=== PATIENT | male | born 1970 | race African-American/Black ===

== ENCOUNTER 2020-07-25 15:36 | Inpatient (IN) | payer OTHER ==
--- OUTSIDE RECORDS SUMMARY | 2020-07-25 15:39 | XMS REPORT | Continuity of Care Document ---
:1970 Author Organization [employer] Care Team Providers Name Role Phone [facility] intersp[employer]Submit Information [employer] Unavailable Un available Problems Problem Status Onset Classification Date Comments Sourc e Date Reported PANCREATITIS, Active [facility] RENAL 0 [place] INSUFFICENCY Acute 10/20/2019 [facility] [place] pancreatitis with infected necrosis, unspecified ACUTE Active [facility] PANCREATITIS [place] WITH INFECTED NECROSI Medications Medication Details Route Status Patient Ordering Order Source Instructions Provider Date NIFEdipine 60 60 mg = 1 Active mg oral tablet, tab, PO, 020 [place] extended BID, # 60 release tab, 0 Refill(s), Pharmacy: [facility] #[id number] apixaban 5 MG See Active Oral Tablet Instructions 020 [place] [Eliquis] , Start at 10 mg (2 tabs) q12h x 4 days then decrease to 5 mg PO q12h, # 76 tab, 0 Refill(s), Pharmacy: [facility] #[id number] NIFEdipine 30 30 mg, Inactive mg oral tablet, Route: PO, 020 [place] and extended Drug form: release ERTAB, BID, Dosing Weight 120.625, kg, Start date: 10/18/19 9:00:00 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, Duration: 30 day, Stop date: 11/16/19 17:00:00 CDT Lactated 1,000 mL, No Longer Ringers IV Rate: 150 Active 020 [place] 1,000 mL ml/hr, Infuse over: 6.7 hr, Route: IV, Dosing Weight 120.625 kg, Total Volume: 1,000, Start date: 10/17/19 14:52:00 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, Duration: 30 day, Stop date: 11/16/19 14:51:00 CDT, 2.47, m2, 0 heparin Notes: Inactive porcine 020 [place] heparin Lactated 1,000 mL, No Longer Ringers IV Rate: 250 Active 020 [place] 1,000 mL ml/hr, Infuse over: 4 hr, Route: IV, Dosing Weight 120.455 kg, Total Volume: 1,000, Start date: 10/16/19 15:30:00 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, Duration: 30 day, Stop date: 11/15/19 15:29:00 CDT, 2.47, m2, 0 msg to RN msg to RN, Inactive pls update Forrest Merino pt info in [employer]hoc, Drug form: MISC, Route: MISC, ONCE, 10/16/19 12:50:00 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, Stop date: 10/16/19 12:50:00 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, 0 Heparin - one 7,400 unit, Inactive time bolus for 7.4 mL, 020 Angelique DVT/PE Route: IVP, Drug form: INJ, ONCE, Dosing Weight 120.455, kg, Priority: STAT, Start date: 10/16/19 12:45:00 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, Stop date: 10/16/19 12:45:00 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, 0 Heparin 80 Route: IVP, No Longer MH unit/kg Bolus PRN, 7,400 Active 020 [place] (Heparin Dosing unit, 7.4 Weight) mL, Drug form: INJ, PRN, Heparin Protocol, Start date: 10/16/19 12:45:00 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 Stop date: 11/15/19 13:44:00 CDT, 30 day, 0 Heparin 40 Route: IVP, No Longer MH unit/kg Bolus PRN, 3,700 Active 020 [place] (Heparin Dosing unit, 3.7 Weight) mL, Drug form: INJ, PRN, Heparin Protocol, Start date: 10/16/19 12:45:00 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 Stop date: 11/15/19 13:44:00 CDT, 30 day, 0 heparin 500 mL, No Longer MH additive 25,000 Rate: 33.11 Active 020 [place] unit [18 ml/hr, unit/kg/hr] + Infuse over: Premix Diluent 15.1 hr, Dextrose 5% 500 Route: IV, mL Dosing Weight 91.98 kg, Total Volume: 500 mL, Start date: 10/16/19 12:45:00 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, Duration: 30 day, Stop date: 11/15/19 12:44:00 CDT, 2.15, m2, 0 normal saline 1,000 mL, Inactive 0.9% IV 1,000 Rate: 200 020 [place] mL ml/hr, Infuse over: 5 hr, Route: IV, Total Volume: 1,000, Start date: 10/16/19 10:30:00 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, Duration: 30 day, Stop date: 11/15/19 10:29:00 CDT, 0 Amlodipine Notes: (Same No Longer as: Norvasc) Active 020 [place] metoprolol Notes: (Same No Longer tartrate as: Active 020 [place] Lopressor) Ondansetron Notes: (Same No Longer as: Zofran) Active 020 [place] MEDICATION WASTE Product Size: 4 mg Product Wasted: ___ mg Hydromorphone Notes: Same No Longer as: Dilaudid Active 020 [place] metoprolol 100 mg = 1 Active tartrate 100 mg tab, PO, 020 [place] oral tablet BID, # 60 tab, 0 Refill(s) candesartan 32 32 mg = 1 No Longer mg oral tablet tab, PO, Active 020 [place] Daily, # 30 tab, 0 Refill(s) febuxostat 40 40 mg = 1 Active mg oral tablet tab, PO, 020 [place] Daily, # 30 tab, 0 Refill(s) Amlodipine 10 mg, PO, No Longer Daily, 0 Active 020 [place] Refill(s) Dextrose 50% 12.5 gm, 25 No Longer Syringe (D50W) mL, Route: Active 020 [place] IVP, Drug Form: INJ, kg, PRN, PRN Blood Glucose Results, Start date: 10/16/19 9:42:00 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, Duration: 30 day, Stop date: 11/15/19 10:41:00 CDT, 0 Glucagon 1 mg, Route: No Longer IM, Drug Active 020 [place] form: PDR/INJ, PRN, kg, PRN Blood Glucose Results, Start date: 10/16/19 9:42:00 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, Duration: 30 day, Stop date: 11/15/19 10:41:00 CDT, 0 Allergies, Adverse Reactions, Alerts No Known Medication Allergies Immunizations No Data Provided for This Section Results Order Name Results Value Reference Date Interpretation Comments Siri rce Range URINE CHEM Ur Protein 167.3 <=11.8 10/19 MH mg/dL [facility] URINE CHEM TV Protein 3200 800 - 1800 10/19 MH (ml) [facility] URINE CHEM U Prot 24Hrs 24 10/19 MH Col (10/18/19 6:05 PM) [facility] nd URINE CHEM U24 Protein 5354 <=148 10/19 MH mg/24hrs /2019 [place] HEMATOLOGY PTT 88.8 22.9 - 02 MH 35.8 [facility] CHEM PANEL Amylase Lvl 96 25 - 115 10/18 [facility] CHEM PANEL Glucose Lvl 138 70 - 99 10/18 MH [place] CHEM PANEL BUN 22 7 - 22 10/18 [facility] CHEM PANEL Creatinine 2.18 0.50 - 02/ MH Lvl 1.40 [facility] CHEM PANEL Sodium Lvl 140 135 - 145 10/18 MH [place] CHEM PANEL Potassium 3.5 3.5 - 5.1 10/18 MH Lvl /2019 [place] CHEM PANEL Chloride Lvl 107 95 - 109 10/18 [place] CHEM PANEL CO2 25 24 - 32 10/18 MH [place] CHEM PANEL Calcium Lvl 8.6 8.5 - 10.5 10/18 [facility] CHEM PANEL AGAP 11.5 10.0 - 02/ MH 20.0 [facility] CHEM PANEL eGFR 39 10/18 Result Comment: The [facility] eGFR is calculated using the CKD-EPI formula. In most young, healthy individuals the eGFR will be >90 mL/min/1.73m2 . The eGFR declines with age. An eGFR of 60-89 may be normal in some populations, particularly the elderly, for whom the CKD-EPI formula has not been extensively validated. Use of the eGFR is not recommended in the following populations:< br/>
Radha viduals with unstable creatinine concentration s, including patients and those with serious co-morbid conditions.<b r/>
Patie nts with extremes in muscle mass or diet.

The data above are obtained from the National Kidney Disease Education Program (NKDEP) which additionally recommends that when the eGFR is used in patients with extremes of body mass index for purposes of drug dosing, the eGFR should be multiplied by the estimated BMI. HEMATOLOGY WBC 7.9 3.7 - 10.4 02/12 MH /2020 [place] HEMATOLOGY RBC 5.10 4.70 - 02/12 MH 6.10 /2020 [facility] HEMATOLOGY Hgb 11.9 14.0 - 02/12 MH 18.0 /2020 [facility] HEMATOLOGY Hct 36.9 42.0 - 02/ MH 54.0 /2019 [facility] HEMATOLOGY MCV 72.4 80.0 - 02/ MH 94.0 /2019 [facility] HEMATOLOGY MCH 23.3 27.0 - 02/ MH 31.0 /2019 [facility] HEMATOLOGY MCHC 32.1 32.0 - 02/ MH 36.0 /2019 [facility] HEMATOLOGY RDW 15.7 11.5 - 02/ MH 14.5 /2020 [facility] HEMATOLOGY Platelet 205 133 - 450 02/12 MH /2019 [facility] HEMATOLOGY MPV 7.3 7.4 - 10.4 /12 MH /2019 [facility] HEMATOLOGY PTT 109.0 22.9 - 02 Result MH 35.8 /2020 Comment: [facility] Critical Result(s) called to Samantha at 10/18/2019 05:45 by CH. Read back OK. HEMATOLOGY Segs 62.7 45.0 - 02/ MH 75.0 /2019 [place] HEMATOLOGY Lymphocytes 24.6 20.0 - 02/12 MH 40.0 /2020 [facility] HEMATOLOGY Monocytes 11.0 2.0 - 12.0 02/12 MH /2019 [place] HEMATOLOGY Eosinophils 1.0 0.0 - 4.0 02/12 MH /2020 [place] HEMATOLOGY Basophils 0.7 0.0 - 1.0 02/12 MH /2020 [place] HEMATOLOGY Neutrophils 4.9 1.5 - 8.1 02/12 MH # /2020 [facility] HEMATOLOGY Lymphocytes 1.9 1.0 - 5.5 02/12 MH # /2020 [facility] HEMATOLOGY Monocytes # 0.9 0.0 - 0.8 02/12 MH /2019 [place] HEMATOLOGY Eosinophils 0.1 0.0 - 0.5 02/12 MH # /2019 [place] HEMATOLOGY Basophils # 0.1 0.0 - 0.2 10/18 MH /2019 [place] HEMATOLOGY Microcyte 2+ None Seen 10/18 MH *ABN* /2019 [facility] (10/18/19 5:17 AM) HEMATOLOGY PT 14.6 12.0 - 02 MH 14.7 /2019 [facility] HEMATOLOGY INR 1.13 0.85 - 02 MH 1.17 /2019 [facility] HEMATOLOGY PTT 62.9 22.9 - 02 MH 35.8 /2019 [facility] IMMUNOLOGY C-ANCA Negative Negative 10/17 MH (10/17/19 3:33 PM) /2019 [facility] IMMUNOLOGY P-ANCA Negative Negative 10/17 MH (10/17/19 3:33 PM) /2019 [facility] nd IMMUNOLOGY OMAIRA Negative 5 Negative 10/17 Result MH (10/17/19 3:33 PM) /2019 Comment: Zulema and Because the OMAIRA was Negative, the Reflex assays for Anti-dsDNA, SM/BILINGUAL COUN[employer] SALES RETAIL, and Ro/La (SSA/SSB) were not performed. IMMUNOLOGY C3 152 88 - 201 10/17 MH Complement /2019 [facility] IMMUNOLOGY C4 42 16 - 47 10/17 MH Complement /2019 [facility] IMMUNOLOGY DNA Ab (DS) Negative Negative 10/17 (10/17/19 3:33 PM) /2019 [facility] nd IMMUNOLOGY Hep Bs Ag Negative Negative 10/17 MH *NA* /2019 [place] (10/17/19 3:33 PM) IMMUNOLOGY Hep C Ab Negative Negative 10/17 MH *NA* /2019 [place] (10/17/19 3:33 PM) IMMUNOLOGY Albumin % 44.2 55.8 - 10/17 MH 66.1 [facility] IMMUNOLOGY Alpha 1 % 6.6 2.8 - 4.9 10/17 /2019 [facility] IMMUNOLOGY Alpha 2 % 14.7 7.0 - 11.9 10/17 MH /2019 [place] IMMUNOLOGY Beta % 16.2 7.8 - 13.7 10/17 /2019 [facility] IMMUNOLOGY Gamma % 18.3 11.1 - 02 MH 18.7 [facility] IMMUNOLOGY Albumin 3.27 3.57 - 02 MH (SPE) 5.55 /2019 [facility] IMMUNOLOGY Alpha 1 Glob 0.49 0.18 - 02 MH 0.41 [facility] IMMUNOLOGY Alpha 2 Glob 1.09 0.45 - 10/17 MH 1.00 [facility] IMMUNOLOGY Beta Glob 1.20 0.50 - 10/17 MH 1.15 [facility] IMMUNOLOGY Gamma Glob 1.35 0.71 - 10/17 MH 1.57 [facility] IMMUNOLOGY Tot Prot 7.4 6.4 - 8.4 10/17 MH (SPE) /2019 [facility] IMMUNOLOGY SPE Interp Total 10/17 MH protein [facility] normal with a decrease in serum albumin. Serum capillary protein electropho resis shows elevated alpha and beta globulin fractions. The electropho retic pattern is consistent with the acute phase of an inflammato ry process. Clinical correlatio n is required. No definite monoclonal proteins are identified . However, an area of asymmetry is noted within the polyclonal gamma fraction and, therefore, an underlying monoclonal protein cannot be excluded. Clinical correlatio n is recommende d with immunofixa tion electropho resis of serum and urine if clinically indicated. Interpret ation performed at [facility]. IMMUNOLOGY LIANNE Ser Diffusely 10/17 MH Pattern immunoreac /2019 [place] tive bands are noted in the IgG, IgA, IgM, kappa and lambda lanes. No monoclonal bands are identified . Interpreta tion performed at [facility]. IMMUNOLOGY LIANNE Ser Serum 10/17 Interp immunofixa /2019 [place] tion electropho resis reveals a polyclonal pattern of immunoglob ulins. No monoclonal proteins are identified . Interpreta tion performed at [facility]. IMMUNOLOGY [place] Free 49.35 3.30 - 10/17 Light Chains 19.40 [facility] IMMUNOLOGY Lambda Free 32.21 5.70 - 10/17 Light Chains 26.30 [facility] IMMUNOLOGY [place]/Lambda 1.53 0.26 - 10/17 MH Free Light 1.65 [facility] Chains Ratio IMMUNOLOGY RF Qnt <10 0 - 20 10/17 [facility] URINE AND UA Turbidity Clear Clear 10/17 STOOL (10/17/19 11:49 AM) [place]ma and URINE AND UA Spec Grav 1.006 <=1.030 10/17 STOOL /2019 [facility] URINE AND UA pH 8.0 5.0 - 8.0 10/17 STOOL /2019 [facility] URINE AND UA Protein 100 mg/dL Negative 10/17 STOOL mg/dL [facility] URINE AND UA Glucose Negative Negative 10/17 STOOL mg/dL mg/dL [facility] URINE AND UA Ketones Negative Negative 10/17 STOOL mg/dL mg/dL [facility] URINE AND UA Bili Negative Negative 10/17 STOOL *NA* /2019 [place] (10/17/19 11:49 AM) URINE AND UA Blood Small Negative 10/17 STOOL *ABN* [facility] (10/17/19 11:49 AM) URINE AND UA Nitrite Negative Negative 10/17 STOOL (10/17/19 11:49 AM) [place] and URINE AND UA Leuk Est Negative Negative 10/17 STOOL (10/17/19 11:49 AM) [place] and URINE AND UA RBC 7 0 - 2 10/17 STOOL [place] URINE AND UA Sq Epi None Seen 10/17 STOOL [place] URINE AND UA Color STRAW 10/17 STOOL [place] URINE AND UA <=1.0 0.1 - 1.0 10/17 STOOL Urobilinogen mg/dL [facility] URINE CHEM U Creatinine <13.00 10/17 [facility] URINE CHEM U Protein 124.6 10/17 [facility] URINE CHEM U Prot/Creat See Note 1 10/17 Result (10/17/19 11:49 AM) Comment: [place] Unable to calculate due to U Creatinine being <13.00. URINE CHEM U Osmolality 366 300 - 800 10/17 [facility] URINE CHEM U Eos None Seen None Seen 10/17 (10/17/19 11:49 AM) [place] and URINE CHEM U Sodium 94 10/17 [facility] URINE CHEM U Potassium 6.3 10/17 [facility] URINE CHEM U Chloride 82 10/17 [facility] CARDIAC Total CK 159 12 - 191 10/17 ENZYMES [facility] CHEM PANEL Magnesium 2.2 1.8 - 2.4 10/17 Lvl [facility] CHEM PANEL Phosphorus 2.8 2.5 - 4.5 10/17 [facility] IMMUNOLOGY C-REACTIVE 126.0 <=2.9 mg/L 10/17 PROTEIN [facility] CHEM PANEL Amylase Lvl 267 25 - 115 10/17 [facility] CHEM PANEL Glucose Lvl 129 70 - 99 10/17 [facility] CHEM PANEL BUN 23 7 - 22 10/17 [facility] CHEM PANEL Creatinine 2.27 0.50 - 10/17 MH Lvl 1.40 [place] CHEM PANEL Sodium Lvl 141 135 - 145 10/17 [place] CHEM PANEL Potassium 3.5 3.5 - 5.1 10/17 MH Lvl /2019 [place] CHEM PANEL Chloride Lvl 108 95 - 109 10/17 [place] CHEM PANEL CO2 28 24 - 32 10/17 [facility] CHEM PANEL Calcium Lvl 8.9 8.5 - 10.5 10/17 [facility] CHEM PANEL AGAP 8.5 10.0 - 02 MH 20.0 [facility] CHEM PANEL eGFR 37 10/17 Result Comment: The [facility] eGFR is calculated using the CKD-EPI formula. In most young, healthy individuals the eGFR will be >90 mL/min/1.73m2 . The eGFR declines with age. An eGFR of 60-89 may be normal in some populations, particularly the elderly, for whom the CKD-EPI formula has not been extensively validated. Use of the eGFR is not recommended in the following populations:< br/>
Radha viduals with unstable creatinine concentration s, including patients and those with serious co-morbid conditions.<b r/>
Patie nts with extremes in muscle mass or diet.

The data above are obtained from the National Kidney Disease Education Program (NKDEP) which additionally recommends that when the eGFR is used in patients with extremes of body mass index for purposes of drug dosing, the eGFR should be multiplied by the estimated BMI. HEMATOLOGY WBC 9.7 3.7 - 10.4 10/17 [facility] HEMATOLOGY RBC 5.06 4.70 - 10/17 MH 6.10 [facility] HEMATOLOGY Hgb 12.1 14.0 - 10/17 MH 18.0 [facility] HEMATOLOGY Hct 36.9 42.0 - 10/17 MH 54.0 [facility] HEMATOLOGY MCV 72.9 80.0 - 10/17 MH 94.0 [facility] HEMATOLOGY MCH 23.8 27.0 - 10/17 MH 31.0 [facility] HEMATOLOGY MCHC 32.7 32.0 - 02/ MH 36.0 /2019 [facility] HEMATOLOGY RDW 15.8 11.5 - 02/ MH 14.5 /2019 [facility] HEMATOLOGY Platelet 214 133 - 450 02/ MH /2019 [facility] HEMATOLOGY MPV 7.9 7.4 - 10.4 02/ /2019 [facility] HEMATOLOGY Segs 66.5 45.0 - 02/ MH 75.0 /2019 [facility] HEMATOLOGY Lymphocytes 21.0 20.0 - 02/ MH 40.0 /2019 [facility] HEMATOLOGY Monocytes 11.0 2.0 - 12.0 02/ MH /2019 [place] HEMATOLOGY Eosinophils 1.1 0.0 - 4.0 / MH /2019 [place] HEMATOLOGY Basophils 0.4 0.0 - 1.0 / MH /2019 [place] HEMATOLOGY Neutrophils 6.4 1.5 - 8.1 / MH # /2019 [place] HEMATOLOGY Lymphocytes 2.0 1.0 - 5.5 / MH # /2019 [place] HEMATOLOGY Monocytes # 1.1 0.0 - 0.8 / MH /2019 [place] HEMATOLOGY Eosinophils 0.1 0.0 - 0.5 / MH # /2019 [place] HEMATOLOGY Microcyte 2+ None Seen 10/17 MH *ABN* /2019 [place] (10/17/19 1:35 AM) HEMATOLOGY PT 15.0 12.0 - 02 MH 14.7 [facility] HEMATOLOGY INR 1.17 0.85 - 02 MH 1.17 [facility] CHEM PANEL Lactic Acid 1.4 0.5 - 2.2 02/10 MH Lvl [facility] CHEM PANEL Glucose Lvl 147 70 - 99 02/10 [facility] CHEM PANEL BUN 22 7 - 22 02/ [facility] CHEM PANEL Creatinine 2.24 0.50 - 02/10 MH Lvl 1.40 [facility] CHEM PANEL Sodium Lvl 142 135 - 145 02/ [facility] CHEM PANEL Potassium 3.2 3.5 - 5.1 02/10 MH Lvl /2019 [place] CHEM PANEL Chloride Lvl 107 95 - 109 02/ [facility] CHEM PANEL CO2 29 24 - 32 02/ [facility] CHEM PANEL Calcium Lvl 9.0 8.5 - 10.5 02/ [facility] CHEM PANEL Total 7.4 6.4 - 8.4 02/ MH Protein /2019 [facility] CHEM PANEL Albumin Lvl 2.6 3.5 - 5.0 02/ MH [facility] CHEM PANEL ALT 37 0 - 65 02/ MH [facility] CHEM PANEL AST 29 0 - 37 02/ MH [facility] CHEM PANEL Alk Phos 76 39 - 136 10/16 [facility] CHEM PANEL Bili Total 0.4 0.2 - 1.3 02/ MH [facility] CHEM PANEL AGAP 9.2 10.0 - 02/ MH 20.0 /2020 [facility] CHEM PANEL B/C Ratio 10 6 - 25 / [facility] CHEM PANEL Globulin 4.8 2.7 - 4.2 02 MH [facility] CHEM PANEL A/G Ratio 0.5 0.7 - 1.6 10/16 [facility] CHEM PANEL eGFR 38 10/16 Result Comment: The [facility] eGFR is calculated using the CKD-EPI formula. In most young, healthy individuals the eGFR will be >90 mL/min/1.73m2 . The eGFR declines with age. An eGFR of 60-89 may be normal in some populations, particularly the elderly, for whom the CKD-EPI formula has not been extensively validated. Use of the eGFR is not recommended in the following populations:< br/>
Radha viduals with unstable creatinine concentration s, including patients and those with serious co-morbid conditions.<b r/>
Patie nts with extremes in muscle mass or diet.

The data above are obtained from the National Kidney Disease Education Program (NKDEP) which additionally recommends that when the eGFR is used in patients with extremes of body mass index for purposes of drug dosing, the eGFR should be multiplied by the estimated BMI. CHEM PANEL Lipase Lvl 2636 73 - 393 10/16 [facility] CHEM PANEL Magnesium 2.3 1.8 - 2.4 /10 MH Lvl /2019 [facility] CHEM PANEL Phosphorus 2.3 2.5 - 4.5 02 [facility] HEMATOLOGY WBC 9.2 3.7 - 10.4 02 [facility] HEMATOLOGY RBC 5.23 4.70 - 02/10 MH 6.10 /2020 [facility] HEMATOLOGY Hgb 12.2 14.0 - 10/16 MH 18.0 [facility] HEMATOLOGY Hct 38.0 42.0 - 02 MH 54.0 [facility] HEMATOLOGY MCV 72.6 80.0 - 10/16 MH 94.0 [facility] HEMATOLOGY MCH 23.4 27.0 - 10/16 MH 31.0 [facility] HEMATOLOGY MCHC 32.2 32.0 - 10/16 MH 36.0 [facility] HEMATOLOGY RDW 15.8 11.5 - 02 MH 14.5 [facility] HEMATOLOGY Platelet 221 133 - 450 02 MH /2019 [facility] HEMATOLOGY MPV 7.5 7.4 - 10.4 10/16 [facility] HEMATOLOGY Segs 70.0 45.0 - 10/16 MH 75.0 [facility] HEMATOLOGY Lymphocytes 19.1 20.0 - 10/16 MH 40.0 [facility] HEMATOLOGY Monocytes 9.6 2.0 - 12.0 10/16 MH [facility] HEMATOLOGY Eosinophils 0.9 0.0 - 4.0 10/16 [facility] HEMATOLOGY Basophils 0.4 0.0 - 1.0 10/16 [facility] HEMATOLOGY Neutrophils 6.5 1.5 - 8.1 10/16 MH # /2019 [facility] HEMATOLOGY Lymphocytes 1.8 1.0 - 5.5 10/16 MH # [facility] HEMATOLOGY Monocytes # 0.9 0.0 - 0.8 10/16 [facility] HEMATOLOGY Eosinophils 0.1 0.0 - 0.5 10/16 MH # [facility] HEMATOLOGY Microcyte 2+ None Seen 10/16 *ABN* /2019 [facility] (10/16/19 10:07 AM) HEMATOLOGY PT 14.0 12.0 - 10/16 MH 14.7 [facility] HEMATOLOGY INR 1.08 0.85 - 10/16 MH 1.17 [facility] LIPIDS Trig 57 <=149 10/16 mg/dL [facility] Pathology Reports No Data Provided for This Section Diagnostic Reports Report Value Date Source Abd Pancreatic Radiation Dose CTDIVOL = 0 (mGy): DLP = 1237.8 (mGy-cm) 10/17/2019 [facility] Protocol w/wo contrast PROCEDURE INFORMATION: CT Exam: CT Abdomen With Contrast, Pancreas Exam date and time: 10/17/2019 11:28 AM Age: 48 years old Clinical indication: Abdominal tenderness; Addit ional info: /evaluate for pancreatitis and/or pancreatic mass TECHNIQUE: Imaging protocol: Computed tomography images of the abdomen with intravenous contrast. Total DLP: 1237.8 mGy-cm Radiation optimization: All CT scans at this facility use at least one of these dose optimization techniques: automated exposure control; mA and/or kV adjustment per patient size (includes targeted e xams where dose is matched to clinical indication); or iterative reconstructio n. Contrast material: VISI 320; Contrast volume: 75 ml; Contrast route: IV; COMPARISON: ABDOMEN COMPLETE US 10/16/2019 11:45 AM FINDINGS: Liver: Normal. No mass. Gallbladder and bile ducts: Normal. No calcified stones. No ductal dilation. Pancreas: Findings consistent with moderate panc reatitis. There is diffuse enlarged the pancreas, mild to moderate inflammation adjacent to the pancreas. There is no evidence of pancreatic necrosis. The re is no pancreatic abscess, pseudocyst, or other fluid collection. Spleen: Normal. No splenomegaly. Adrenals: Normal. No mass. Kidneys and ureters: The kidneys are nor mal in size and show good, symmetrical enhancement without hydronephrosis. No calculi a re seen. There are a few left renal cysts, the largest in the lower pole measu ring 2.4 cm. There is a tiny right renal cyst. No other focal lesions are see n within the kidneys. Stomach and bowel: The gastrointestinal structur es are unremarkable. There is no evidence of obstruction or ileus. Evaluation of the gastrointestinal structures is limited due to lack of oral contra st. Intraperitoneal space: There is no ascites. Ther e is no free intraperitoneal gas. Lymph nodes: Unremarkable. No enlarged lymph nod es. Vasculature: Unremarkable. No abdominal aortic a neurysm. Bones/joints: Unremarkable.No acute fracture. No dislocation. Soft tissues: There is a small patulous umbilica l hernia. There is no herniation of bowel. IMPRESSION: 1. Findings consistent with moderate pancreatiti s. 2. There is no pancreatic ab scess, pancreatic necrosis, pseudocyst, or ascites. 3. There are a few left renal cysts, the largest in the lower pole measuring 2.4 cm. There is a tiny right renal cyst. Jame Day MD On 10/17/2019 15:40:12; [id number] Lung PROCEDURE INFORMATION: 10/16/2019 [facility] ventilation/perfusion Exam: WI Lung Ventilation and Perfusion Im aging scan NM Exam date and time: 10/16/2019 5:18 PM Age: 48 years old Clinical indication: Other: Lower right cp on in halation; Additional info: /concern for pe TECHNIQUE: Imaging protocol: Nuclear pulmonary ventilation with aerosol or gas was performed followed by perfusion. Views: Ventilation acquired with multipl e projections. Perfusion acquired with multiple projections. Radiopharmaceutical: 10 mCi of Xenon 133, inhale d. 6 mCi of Tc-99m MAA, right antecubital IV. COMPARISON: No relevant prior studies available. FINDINGS: Ventilation: Mild diffuse air trapping. No venti lation defects. Perfusion: Normal. No perfusion defects. IMPRESSION: Normal perfusion. No evidence of pulmonary embol ism. Loli Chicas MD On 10/16/2019 17:29:05 ; [id number] Abdomen complete US PROCEDURE INFORMATION: 10/16/2019 [facility] Exam: US Abdomen Complete Exam date and time: 10/16/2019 11:45 AM Age: 48 years old Clinical indication: /pancreatitis. R/O gallston e TECHNIQUE: Imaging protocol: Real-time ultrasound of the abdomen with image documentation. COMPARISON: No relevant prior studies available. FINDINGS: Liver: Normal. No mass. Gallbladder: Normal. No gallstones. There is no gallbladder wall thickening. Common bile duct: 2.3 mm common bile duct. Pancreas: The pancreas body is normal, t he head and tail are obscured by bowel gas. Right kidney: Right kidney 11.6 X 5.5 X 4.0 cm. No hydronephrosis. Echogenic renal cortex. Left kidney: Left kidney 10.9 X 6.0 X 3.3 cm. 2. 4 X 2.3 X 2.3 cm left renal cyst. Echogenic renal cortex. Spleen: Spleen 8.9 X 2.9 X 4.8 cm. Aorta: 2.2 cm proximally aorta. The distal aorta is obscured by bowel gas. Inferior vena cava: Normal. Portal venous: Hepatopetal portal vein flow. IMPRESSION: 1. No acute abnormality. 2. Echogenic renal cortices could be seen with m edical renal disease. Julio Medellin MD On 10/16/2019 13:30:53; [id number] Ext Lower Venous PROCEDURE INFORMATION: 10/16/2019 [facility] Bil[facility] US Exam: US Duplex Lower Extremity Veins Exam date and time: 10/16/2019 12:28 PM Age: 48 years old Clinical indication: /le swelling TECHNIQUE: Imaging protocol: Real-time duplex ultrasound of the Lower Extremities with 2-D palomo scale, color Doppler flow and spectral wave form analysis with image documentation. Complete exam focused on the bila teral lower extremity veins. COMPARISON: No relevant prior studies available. FINDINGS: Right deep veins: Thrombus is present within the superficial femoral and popliteal veins. Right superficial veins: Thr ombus is present within the right greater saphenous vein. Left deep veins: The common femoral, femoral, pr oximal profunda femoral and popliteal veins are patent without thrombus. Nor mal Doppler waveforms. Normal compressibility and/or augmentation response. Left superficial veins: Saphenofemoral junction is patent without thrombus. Soft tissues: Unremarkable. IMPRESSION: Positive evidence of deep vein thrombosis in the right leg as above. Negative left leg DVT. THIS REPORT CONTAINS FINDINGS THAT MAY BE CRITICAL TO PATIENT CARE. The findings were verbally communicated via telephone conference with Carmen Rodriguez at 12:42 PM 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 on 10/16/2019. The findings were acknowledged and understood. Mohamud Hoffmann MD On 10/16/2019 12:43:32; VR-JNG [id number] Consultation Notes No Data Provided for This Section Discharge Summaries No Data Provided for This Section History and Physicals No Data Provided for This Section Vital Signs Vital Sign Value Date Comments Source Temperature Oral (F) 98.4 F 10/18/2019 [place] Heart Rate 64 10/18/2019 [place] Respitory Rate 20 10/18/2019 [place] Systolic (mm Hg) 163 10/18/2019 [place] Diastolic (mm Hg) 93 10/18/2019 [place] Temperature Oral (F) 98.1 F 10/18/2019 [place] Heart Rate 59 10/18/2019 [place] Respitory Rate 18 10/18/2019 [place] Systolic (mm Hg) 166 10/18/2019 [place] Diastolic (mm Hg) 97 10/18/2019 [place] Temperature Oral (F) 98.4 F 10/18/2019 [facility] Heart Rate 54 10/18/2019 [facility] Respitory Rate 18 10/18/2019 [facility] Systolic (mm Hg) 177 10/18/2019 [facility] Diastolic (mm Hg) 110 10/18/2019 [facility] d Height 177.8 cm 10/17/2019 [facility] Weight 120.625 10/17/2019 [facility] BMI Calculated 38.16 10/17/2019 [facility] Height 177.8 cm 10/16/2019 [facility] Weight 120.455 10/16/2019 [facility] BMI Calculated 38.1 10/16/2019 [facility] Height 177.8 cm 10/16/2019 [facility] Weight 120.455 10/16/2019 [facility] BMI Calculated 38.1 10/16/2019 [facility] Encounters Location Location Encounter Encounter Reason Attending ADM DC Stat us Source Details Type Number For Provider Date Date Visit [facility] Inpatient [id number] Luis Antonio 10/16 10/19 Deniz Ajibade /2019 [facility] Procedures No Data Provided for This Section Assessment and Plan Assessment and Plan Date Source Extracted from:Title: GI Progress Note 10/19/2019 Caleb Merino Author: Amaury Urena MD Date: 10/18/19 Impression and Plan Impression 1. Acute pancreatitis of unknown etiology - Triglyceride 57 2. Acute DVT in right leg 3. History of HTN Plan 1. Low fat soft diet as tolerated 2. Antiemetics and analgesia PRN 3. Hematology following 4. Recommend outpatient EUS with Dr. Urena in 4 weeks 5. Follow-up with Dr. Urena in GI clinic in 2 weeks upon dis charge GI ATTENDING I have examined the patient with the PA and confirmed the essential components of history, physical examination, diagnosis and treatment plan. I agree with the patient's care as documented by the PA, and amended as needed herein by me. Amaury Urena MD GI Attending Extracted from:Title: Nephrology consult Author: Tommy Lancaster MD Date: 10/17/19 Impression and Plan 48-year-old male with history of hyperte nsion, presented to emergency room complaining of abdominal pain. 1. Acute kidney injury. No known history of renal failure. ABD US, no hydronephrosis. Associated with hypoalbuminemia and new diagnosis of DVT. To rule out nephrotic syndrome. 2. Acute pancreatitis. 3. Right lower extremity DVT. 4. Hypophosphatemia. Recommendations. Continue IV hydration. Add on Mag, phos and CK levels. No need for hemodialysis. Urine osmolality urine electrolytes, urine protein/creat in random sample, UA. Drug dose adjustment to GFR. Avoid nephrotoxic medications, NSAID. Discussed with primary team and nurse. Thank you for the consultation, any question, please call [phone]. Extracted from:Title: [facility] Hospitalist Admission History and Physical Author: Carmen Rodriguez MD Date: 10/16/19 1.Acute pancreatitis(K85.90) -unclear etiology. -f/u RUQ US -f/u TG level -cont aggressive fluids, pain control. A dvance diet as tolerated once pain improved Ordered: Admit/Condition, 10/16/19 9:43:00 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, S tatus: Inpatient, Acute, Expected LOS: 2 Midnights, Carmen Rodriguez MD, Admit MD Review/Approve Yes, Isolation: No Isolation/Standard Precautions, Acute pancreatitis 2.Hypertension(I10) -resume home meds 3.Elevated d-dimer(R79.89) -likely 2/2 inflammation; further workup will be ordered if warranted. 4.EYAL (acute kidney injury)(N17.9) -unknown baseline, cont fluids. F/u renal US 5.Swelling of lower extremity(M79.89) -bilateral -likely 2/2 amlodipine -f/u US heparin 2 MN Addendum by Carmen Rodriguez MD on 10/16/2019 14:04 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 LE doppler with acute DVT Pt started on heparin infusion. will also obtain VQ scan (cannot obtain CTA due to CKD) Will consult GI and hematology as well. Can hopefully discha rge on DOAC. Plan of Care No Data Provided for This Section Social History Social History Date Source Social History TypeResponse 10/19/2019 [facility] Family History No Data Provided for This Section Advance Directives No Data Provided for This Section Functional Status No Data Provided for This Section
--- OUTSIDE RECORDS SUMMARY | 2020-07-25 15:40 | XMS REPORT | Continuity of Care Document ---
:1970 Author Organization [facility] t Address [address] [place] [address] Care Team Providers Name Role Phone Luis Mayorga Attending Clinician Luis Mayorga Admitting Clinician Problems Condition Condition Condition Status Onset Resolution Last Treating Co mments Source Name Details Category Date Date Treatment Clinician Date PANCREATIT Diagnosis Active 2019-10-23 Memoria IS, RENAL 2-10 21:47:00 l INSUFFICEN 00:00: Jeffry n CY PANCREATIT 00 IS, RENAL INSUFFICEN CY Active 0 [facility] Problem 2019-10-20 Memor ia pancreatit 23:30:46 l is with Acute [place] infected pancreatit necrosis, is with unspecifie infected d necrosis, unspecifie d 10/20/2019 [facility] ACUTE Diagnosis Active 2019-10-23 Mem oria PANCREATIT 21:47:00 l IS WITH ACUTE [place] INFECTED PANCREATIT NECROSI IS WITH INFECTED NECROSI Active [facility] Allergies, Adverse Reactions, Alerts This patient has no known allergies or adverse reactions. Medications Ordered Filled Start Stop Current Ordering Indication Dosage Frequency Signature Comments Components Source Medication Medication Date Date Medication? Clinician (SIG) Name Name NIFEdipine 2019- Yes 60 mg = 1 Me moria 60 mg oral 2-12 tab, PO, l tablet, 20:41: BID, # 60 Saima nn extended 00 tab, 0 release Refill(s), Pharmacy: [facility] #[id number] apixaban 5 Yes See Memoria MG Oral 2-12 Instructio l Tablet 20:41: ns, Start Jeffry n [Eliquis] 00 at 10 mg (2 tabs) q12h x 4 days then decrease to 5 mg PO q12h, # 78 tab, 0 Refill(s), Pharmacy: [facility] #[id number] NIFEdipine 2020-0 No 30 mg, Memor ia 30 mg oral 2-12 Route: PO, l tablet, 15:00: Drug form: Herm ERTAB, release BID, Dosing Weight 120.625, kg, Start date: 10/18/19 9:00:00 [employer] 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, Duration: 30 day, Stop date: 11/16/19 17:00:00 CDT Lactated 2020-0 No 1,000 mL, Syed eva Ringers IV 2-11 Rate: 150 l 1,000 mL 20:52: ml/hr, Infuse over: 6.7 hr, Route: IV, Dosing Weight 120.625 kg, Total Volume: 1,000, Start date: 10/17/19 14:52:00 [employer]CH[employer]IC, Duration: 30 day, Stop date: 11/16/19 14:51:00 CDT, 2.47, m2, 0 heparin 2020-0 No Notes: Memoria 2-10 porcine l 22:00: heparin Lactated 2020-0 No 1,000 mL, Syed eva Ringers IV 2-10 Rate: 250 l 1,000 mL 21:30: ml/hr, Infuse over: 4 hr, Route: IV, Dosing Weight 120.455 kg, Total Volume: 1,000, Start date: 10/16/19 15:30:00 [employer]CH[employer], Duration: 30 day, Stop date: 11/15/19 15:29:00 CDT, 2.47, m2, 0 msg to RN 2020-0 No msg to RN, Sc moria 2-10 pls update l 18:50: pt info in Adhoc, Drug form: MISC, Route: MISC, ONCE, 10/16/19 12:50:00 [employer]CH[employer], Stop date: 10/16/19 12:50:00 [employer]CH[employer]IC, 0 Heparin - 2020-0 No 7,400 Memoria one time 2-10 unit, 7.4 l bolus for 18:45: mL, Route: He rmann DVT/PE 00 IVP, Drug form: INJ, ONCE, Dosing Weight 120.455, kg, Priority: STAT, Start date: 10/16/19 12:45:00 [employer] MECH[employer], Stop date: 10/16/19 12:45:00 [employer] MECH[employer]IC, 0 Heparin 80 2020-0 No Route: Memor ia unit/kg 2-10 IVP, PRN, l Bolus 18:45: 7,400 [place] (Heparin 00 unit, 7.4 Dosing mL, Drug Weight) form: INJ, PRN, Heparin Protocol, Start date: 10/16/19 12:45:00 [employer]CH[employer] Stop date: 11/15/19 13:44:00 CDT, 30 day, 0 Heparin 40 2020-0 No Route: Memor ia unit/kg 2-10 IVP, PRN, l Bolus 18:45: 3,700 [place] (Heparin 00 unit, 3.7 Dosing mL, Drug Weight) form: INJ, PRN, Heparin Protocol, Start date: 10/16/19 12:45:00 [employer] Stop date: 11/15/19 13:44:00 CDT, 30 day, 0 heparin 2020-0 No 500 mL, Memoria additive 2-10 Rate: l 25,000 unit 18:45: 33.11 Saima nn [18 00 ml/hr, unit/kg/hr] Infuse + Premix over: 15.1 Diluent hr, Route: Dextrose 5% IV, Dosing 500 mL Weight 91.98 kg, Total Volume: 500 mL, Start date: 10/16/19 12:45:00 [employer], Duration: 30 day, Stop date: 11/15/19 12:44:00 CDT, 2.15, m2, 0 normal 2020-0 No 1,000 mL, Memori a saline 0.9% 2-10 Rate: 200 l IV 1,000 mL 16:30: ml/hr, Herm Infuse over: 5 hr, Route: IV, Total Volume: 1,000, Start date: 10/16/19 10:30:00 [employer]CH[employer], Duration: 30 day, Stop date: 11/15/19 10:29:00 CDT, 0 Amlodipine 2020-0 No Notes: Memor ia 2-10 (Same as: l 16:29: Norvasc) metoprolol 2019-0 No Notes: Memor ia tartrate 2-10 (Same as: l 16:29: Lopressor) Ondansetron 2019-0 No Notes: Syed eva 2-10 (Same as: l 16:28: Zofran) MEDICATION WASTE Product Size: 4 mg Product Wasted: ___ mg Hydromorpho 2020-0 No Notes: Syed eva ne 2-10 Same as: l 16:28: Dilaudid metoprolol 2019-0 Yes 100 mg = 1 M emoria tartrate 2-10 tab, PO, l 100 mg oral 15:44: BID, # 60 H ermann tablet 00 tab, 0 Refill(s) candesartan 2019-0 No 32 mg = 1 M emoria 32 mg oral 2-10 tab, PO, l tablet 15:44: Daily, # [place] 00 30 tab, 0 Refill(s) febuxostat 2019-0 Yes 40 mg = 1 Me moria 40 mg oral 2-10 tab, PO, l tablet 15:44: Daily, # [place] 00 30 tab, 0 Refill(s) Amlodipine 2019-0 No 10 mg, PO, M emoria 2-10 Daily, 0 l 15:44: Refill(s) Dextrose 2019-0 No 12.5 gm, Memor ia 50% Syringe 2-10 25 mL, l (D50W) 15:42: Route: IVP, Drug Form: INJ, kg, PRN, PRN Blood Glucose Results, Start date: 10/16/19 9:42:00 [employer]CH[employer], Duration: 30 day, Stop date: 11/15/19 10:41:00 CDT, 0 Glucagon 2019-0 No 1 mg, Memoria 2-10 Route: IM, l 15:42: Drug form: PDR/INJ, PRN, kg, PRN Blood Glucose Results, Start date: 10/16/19 9:42:00 [employer]CH[employer], Duration: 30 day, Stop date: 11/15/19 10:41:00 CDT, 0 Vital Signs Vital Name Observation Time Observation Value Comments Source Temperature Oral (F) 2019-10-18 22:00:00 98.4 F [facility] Heart Rate 2019-10-18 22:00:00 [facility] Respitory Rate 2019-10-18 22:00:00 Memori al [place] Systolic (mm Hg) 2019-10-18 22:00:00 Syed rial [place] Diastolic (mm Hg) 2019-10-18 22:00:00 Mem orial [place] Temperature Oral (F) 2019-10-18 18:00:00 98.1 F [facility] Heart Rate 2019-10-18 18:00:00 [facility] Respitory Rate 2019-10-18 18:00:00 Memori al [place] Systolic (mm Hg) 2019-10-18 18:00:00 Syed rial [place] Diastolic (mm Hg) 2019-10-18 18:00:00 Mem orial [place] Temperature Oral (F) 2019-10-18 14:00:00 98.4 F [facility] [place] Heart Rate 2019-10-18 14:00:00 [facility] Respitory Rate 2019-10-18 14:00:00 Memori al [place] Systolic (mm Hg) 2019-10-18 14:00:00 Syed rial [place] Diastolic (mm Hg) 2019-10-18 14:00:00 Mem orial [place] Height 2019-10-17 15:24:00 177.8 cm [facility] Weight 2019-10-17 15:24:00 [facility] [place] BMI Calculated 2019-10-17 15:24:00 Memori al [place] Height 2019-10-16 22:51:00 177.8 cm [facility] [place] Weight 2019-10-16 22:51:00 [facility] BMI Calculated 2019-10-16 22:51:00 Memori al [place] Height 2019-10-16 22:44:00 177.8 cm [facility] [place] Weight 2019-10-16 22:44:00 [facility] BMI Calculated 2019-10-16 22:44:00 Memori al [place] Procedures This patient has no known procedures. Encounters Start End Encounter Admission Attending Care Care Encounter Source Date/Time Date/Time Type Type Clinicians Facility Department ID 2019-10-16 Inpatient U [facility] MED [id number] [facility] L 09:25:00 2019-10-16 2019-10-18 Outpatient DARIEN Mayorga JEB [id number] 09:25:00 19:03:00 Luis Antonio 41 Luis Results Test Description Test Time Test Comments Results Result Comments Source URINE CHEM 2019-10-19 167.3 [facility] 00:05:00 [place] URINE CHEM 2019-10-19 [id number] [facility] 00:05:00 [place] URINE CHEM 2019-10-19 24 (10/18/19 [facility] 00:05:00 6:05 PM) [place] URINE CHEM 2019-10-19 [id number] [facility] 00:05:00 [place] HEMATOLOGY 2019-10-18 19:21:00 Test Item Value Reference Range Interpretation Comme nts PTT (test code = PTT) 88.8 s 22.9-35.8 [facility] HermannCHEM [id number] 11:17:0096[facility] HermannCHEM PANEL 2019-10-18 11:17:21218Ffprmwet HermannCHEM CLGRO3788-57-64 11:17:0022[facility] HermannCHEM LBTOH7577-68-47 11:17:002.18[facility] HermannCHEM BOZAL1547-18-83 11:17:13594Hgvubwdr HermannCHEM GROSD4467-88-34 11:17:003.5[facility] HermannCHEM WYBAB6666-95-66 11:17:92466Einexsyu HermannCHEM OEXNY4334-24-09 11:17:0025 [facility] HermannCHEM CVWPB6554-29-66 11:17:008.6[facility] HermannCHEM PANEL 2019-10-18 11:17:0011.5[facility] HermannCHEM QLYMA5456-94-34 11:17:0039[facility] ExrvvfcFOVJIZZACO0681-91-39 11:17:007.9[facility] VqdezvnYDWXZINRNE8342-23-77 11:17:005.10[facility] SboymakYVNQNNIBVH9207-54-03 11:17:0011.9[facility] ORRJKJXYHD5486-79-91 11:17:0036.9[facility] RghtuikODJALWAGEG6176-12-08 11:17:00 72.4[facility] GtfbccbKXOLTMEWRU9898-09-10 11:17:00 Test Item Value Reference Range Interpretation Comments MCH (test code = MCH) 23.3 pg 27.0-31.0 [facility] QvvvzcaJMNNHFIYKY7285-45-52 11:17:0032.1[facility] HermannHEMATOLOGY 2019-10-18 11:17:0015.7[facility] RalbxnqIZZJYOOFZY2464-53-46 11:17:94569Nbwwmuzf PeaeldkETKINSDKIM8499-98-30 11:17:007.3[facility] KbdubstMFISMWPCLD1304-37-74 11:17:00 Test Item Value Reference Range Interpretation Comments PTT (test code = PTT) 109.0 s 22.9-35.8 [facility] UrvmfjpSNSUQTCVPX7644-00-52 11:17:0062.7[facility] HermannHEMATOLOGY 2019-10-18 11:17:0024.6[facility] NvwlfpeRVIXUQKDJQ4959-73-88 11:17:0011.0[facility] NlhvdgcVOQQRYOBVM5417-48-57 11:17:001.0[facility] RazauboGEZSBDLMDY7216-99-43 11:17:000.7[facility] YfearggCPZPXDXJXC3820-05-88 11:17:004.9[facility] [place] UURELVDSBC3474-37-18 11:17:001.9[facility] MdkapfrDMRXFTFCAM6967-46-48 11:17:000.9 [facility] QbeabxpEPESQNMYIJ2889-65-26 11:17:000.1[facility] HermannHEMATOLOGY 2019-10-18 11:17:000.1[facility] RrarxvwYOFWZQSVXK1259-63-69 11:17:002+ *ABN*(10/18/19 5:17 AM)[facility] JcjofblOMAEDWTAVJ2156-75-25 03:30:00 Test Item Value Reference Range Interpretation Comments PT (test code = PT) 14.6 s 12.0-14.7 [facility] ZrumksoEZOZBWUQSW7153-93-59 03:30:00 Test Item Value Reference Range Interpretation Comments INR (test code = INR) 1.13 1 0.85-1.17 [facility] JakuigeJVWHOWDLHD0446-88-44 03:30:00 Test Item Value Reference Range Interpretation Comments PTT (test code = PTT) 62.9 s 22.9-35.8 [facility] WcqczifLGIOKVZIDC1870-29-19 21:33:00Negative (10/17/19 3:33 PM)[facility] FojkijlCNUNQMQEOC7127-81-93 21:33:00Negative (10/17/19 3:33 PM)[facility] OTGCWCGLHF5813-07-86 21:33:00Negative 5(10/17/19 3:33 PM)[facility] XBEKCXNTLT8412-42-41 21:33:59818Krnqiscn ErqlylnDKCUGJIAOI9032-27-84 21:33:0042 [facility] BdqliurTAKTYWIBYR2350-88-76 21:33:00Negative (10/17/19 3:33 PM)[facility] SuatfnqAKWGUEUFQX1246-69-54 21:33:00Negative *NA*(10/17/19 3:33 PM)[facility] NqgfinpGBHHYBXLSN4786-33-74 21:33:00Negative *NA*(10/17/19 3:33 PM)[facility] QezcixvVPHRFSFCJD8859-60-73 21:33:0044.2[facility] SfjghnnHVGRXSFJQS7746-34-49 21:33:006.6[facility] AjknhdmUQRYBCNUWP9395-42-06 21:33:0014.7[facility] [place] BTCWWLKQBE3339-90-68 21:33:0016.2[facility] BuhsfcnSRWGERWLAM4154-73-40 21:33:00 18.3[facility] WavavjfDVGKFFZXVS8831-57-31 21:33:003.27[facility] HermannIMMUNOLOGY 2019-10-17 21:33:000.49[facility] WwypzgnBMSQOAHBKL7332-83-82 21:33:001.09[facility] IswcoufLZMGWSMXXV9460-27-81 21:33:001.20[facility] StwudtjRELLLDFPHG1344-28-66 21:33:001.35[facility] IuxrcktKBTUAXSRVP4262-37-35 21:33:007.4[facility] [place] QBJOAUJJBP8175-35-49 21:33:0049.35[facility] YkauoysSDAXCOWANK0013-21-30 21:33:00 32.21[facility] UusafoyCHXGWSROEF1542-48-71 21:33:001.53[facility] HermannIMMUNOLOGY 2019-10-17 21:33:00<10[facility] HermannURINE AND NWTUV7583-92-78 17:49:00Clear (10/17/19 11:49 AM)[facility]annURINE AND WVFOY6570-28-69 17:49:00 Test Item Value Reference Range Interpretation Comments UA Spec Grav (test code = UA Spec 1.006 1 Grav) [facility]annUR[facility] AND LVXDS2346-86-33 17:49:00 Test Item Value Reference Range Interpretation Comments UA pH (test code = UA pH) 8.0 1 5.0-8.0 [facility] AND NDGEQ2995-45-79 17:49:00Negative *NA*(10/17/19 11:49 AM)[facility] AND RMILF4709-03-66 17:49:00Small *ABN*(10/17/19 11:49 AM)[facility] AND YREGG4426-99-79 17:49:00Negative (10/17/19 11:49 AM) [facility] AND EGDCV3823-54-40 17:49:00Negative (10/17/19 11:49 AM) [facility] AND ZHWPC4292-27-65 17:49:007[facility]annURINE CHEM 2019-10-17 17:49:00<13.00[facility]annURINE PDLF3413-10-68 17:49:87620.6 [facility]annURINE WGDY1228-13-49 17:49:00See Note 1(10/17/19 11:49 AM) [facility]annURINE OYWP0443-24-46 17:49:27305Hjkyakmc HermannURINE CHEM 2019-10-17 17:49:00None Seen (10/17/19 11:49 AM)[facility]annURINE CHEM 2019-10-17 17:49:0094[facility] HermannURINE SEIY7522-69-97 17:49:006.3[facility] HermannURINE VZUD9507-33-20 17:49:0082[facility] HermannCARDIAC QZJMGYG5657-59-24 14:03:67626Wwbricxv HermannCHEM GWTUA5590-39-23 14:03:002.2[facility] HermannCHEM AKJTR7866-39-66 14:03:002.8[facility] KcicmwfLRJICSFJXD2523-72-79 14:03:14287.0 [facility] HermannCHEM JVTZZ7531-61-44 07:35:74881Yaggsbcv HermannCHEM PANEL 2019-10-17 07:35:86054Ztjwccct HermannCHEM BBQVH4011-41-70 07:35:0023[facility] HermannCHEM KUDBP7655-91-65 07:35:002.27[facility] HermannCHEM MQLWD4257-27-14 07:35:93341Muyhxred HermannCHEM FVBOJ4263-60-86 07:35:003.5[facility] HermannCHEM SGNGG6651-93-21 07:35:22455Bnugcfck HermannCHEM RTXJS0575-26-39 07:35:0028 [facility] HermannCHEM WSKXC5783-41-17 07:35:008.9[facility] HermannCHEM PANEL 2019-10-17 07:35:008.5[facility] HermannCHEM DRIGM0503-24-40 07:35:0037[facility] GcvkxmmLCTQPCQPCS9166-17-48 07:35:009.7[facility] ZepuequOEBGUNKGTQ0370-61-54 07:35:005.06[facility] ModpkpuBVTLVLYQPD5772-28-74 07:35:0012.1[facility] [place] GVOCKRMDDG2979-97-46 07:35:0036.9[facility] UjnptqqOFQNBGBEJD3152-15-54 07:35:00 72.9[facility] LajdjjiVBRKBANDBL6113-39-49 07:35:00 Test Item Value Reference Range Interpretation Comments MCH (test code = MCH) 23.8 pg 27.0-31.0 [facility] MwzhrfyYYWMROKNQH0200-63-90 07:35:0032.7[facility] HermannHEMATOLOGY 2019-10-17 07:35:0015.8[facility] WicvxzwCWUBUHPCYC2218-50-33 07:35:62122Lzzglgwm OzdjmgbNBWYQYTMOE6173-60-15 07:35:007.9[facility] FiizmnjVONWKXBTMS0687-97-80 07:35:0066.5[facility] RmyrvhzEFBOKDKDLB6938-40-90 07:35:0021.0[facility] [place] KUOHWMMSYV2333-05-56 07:35:0011.0[facility] ExkwcsyNLUTNFYZPN5377-75-05 07:35:00 1.1[facility] YisbwyoFJKUJDJJIT7926-09-16 07:35:000.4[facility] HermannHEMATOLOGY 2019-10-17 07:35:006.4[facility] PokpoewBLCVBPQAKL7665-02-39 07:35:002.0[facility] OealhpkSNSGZTAYKX5912-79-97 07:35:001.1[facility] HuvauobLZSBITVNPD3666-04-18 07:35:000.1[facility] HmcvujiSXVYOIALON7899-37-17 07:35:002+ *ABN*(10/17/19 1:35 AM)[facility] CczflmpIBONZTAPPP6893-30-85 01:35:00 Test Item Value Reference Range Interpretation Comments PT (test code = PT) 15.0 s 12.0-14.7 [facility] GmbloorMIMKYIDZFJ9989-84-19 01:35:00 Test Item Value Reference Range Interpretation Comments INR (test code = INR) 1.17 1 0.85-1.17 [facility] HermannCHEM REDEK2829-37-64 20:27:001.4[facility] HermannCHEM PANEL 2019-10-16 16:07:97418Fgjhwvhg HermannCHEM DWXSV9188-97-05 16:07:0022[facility] HermannCHEM ACZTN6871-07-91 16:07:002.24[facility] HermannCHEM TRZPQ9314-94-29 16:07:10379Hnwmvshr HermannCHEM KUXXF0498-18-23 16:07:003.2[facility] HermannCHEM KPBXL5938-86-48 16:07:09412Noapjjuy HermannCHEM KAWOX6192-88-04 16:07:0029 [facility] HermannCHEM VZGUZ8030-09-60 16:07:009.0[facility] HermannCHEM PANEL 2019-10-16 16:07:007.4[facility] HermannCHEM NWWPC6901-95-33 16:07:002.6[facility] HermannCHEM YPLQY4376-44-77 16:07:0037[facility] HermannCHEM ZGHHP2364-70-98 16:07:0029[facility] HermannCHEM UCQTA3194-43-54 16:07:0076[facility] HermannCHEM CEKNH7653-52-80 16:07:000.4[facility] HermannCHEM CKMSK8156-35-75 16:07:009.2 [facility] HermannCHEM DBQEQ9085-54-07 16:07:00 Test Item Value Reference Range Interpretation Comments B/C Ratio (test code = B/C Ratio) 10 1 6-25 [facility] HermannCHEM JKENZ4849-33-09 16:07:004.8[facility] HermannCHEM PANEL 2019-10-16 16:07:00 Test Item Value Reference Range Interpretation Comments A/G Ratio (test code = A/G Ratio) 0.5 1 0.7-1.6 [facility] HermannCHEM DEZXL8100-11-74 16:07:0038[facility] HermannCHEM PANEL 2019-10-16 16:07:441873Tufxluom HermannCHEM ANKBH8924-57-33 16:07:002.3[facility] HermannCHEM BZRCZ6210-76-50 16:07:002.3[facility] CaglpthGSGTXRMYGK8319-20-10 16:07:009.2[facility] JmvhunmRJRJGYXBFB6458-26-09 16:07:005.23[facility] [place] ORCRVVVNKV7260-78-60 16:07:0012.2[facility] CsiqbvtIJXFQEKUZR6225-54-00 16:07:00 38.0[facility] IbidcrrNHZHIZYTZI8611-91-68 16:07:0072.6[facility] HermannHEMATOLOGY 2019-10-16 16:07:00 Test Item Value Reference Range Interpretation Comments MCH (test code = MCH) 23.4 pg 27.0-31.0 [facility] CvjhixmZGBWMJJYEN1134-13-13 16:07:0032.2[facility] HermannHEMATOLOGY 2019-10-16 16:07:0015.8[facility] OajekaaALPJKBBEVE6140-83-36 16:07:92466Kgxmtvux ZyfiiakFUQBWDSYPT3867-17-48 16:07:007.5[facility] FvyoxiaBUKPPNPJEE9504-61-33 16:07:0070.0[facility] NletksrQXHFBQWUNY7551-48-63 16:07:0019.1[facility] MBCORCWWLJ9134-24-13 16:07:009.6[facility] TniznzlZZWQBTEDZA9481-39-04 16:07:000.9 [facility] JfhskmbSPYCWXUMNR0023-63-02 16:07:000.4[facility]ann[facility]Y 2019-10-16 16:07:006.5[facility] DhxlnqtHOMXRBYJIR6110-05-78 16:07:001.8[facility] OeerspeTMRIEPVGDC9697-69-49 16:07:000.9[facility] HvbgpizKASACOJXHF5909-06-61 16:07:000.1[facility] OektwdyPKEZMRRCEL5826-80-15 16:07:002+ *ABN*(10/16/19 10:07 AM)[facility] SspvbzoEKLJPLVWBB3644-71-10 16:07:00 Test Item Value Reference Range Interpretation Comments PT (test code = PT) 14.0 s 12.0-14.7 [facility] PrrecstZYXXACVNYE9241-31-09 16:07:00 Test Item Value Reference Range Interpretation Comments INR (test code = INR) 1.08 1 0.85-1.17 [facility] 16:07:0057[facility]
[2020-07-25] MEDS ORDERED: ACETAMINOPHEN 500 MG TAB ONE (16:32)
[2020-07-25 16:40] LABS: Absolute Lymphocytes (CBC) 0.9 K/uL (0.7-4.9); Basophils % 0.3 % (0-1.3); Lymphocytes % 12.8 % (15.3-44.8); MPV 8.6 fL (7.6-11.3); RBC Red Blood Cell Count 5.43 M/uL (4.33-5.43)
[2020-07-25 16:50] LABS: Potassium 3.5 mmol/L (3.5-5.1)
--- NOTE | 2020-07-25 17:00 | RAD REPORT ---
EXAM DESCRIPTION: RAD - Chest Single View - 07/25/2020 4:53 pm CLINICAL HISTORY: COUGH Chest pain. COMPARISON: No comparisons FINDINGS: Portable technique limits examination quality. Moderate bilateral pulmonary opacities are present likely representing viral pneumonitis. The heart i s normal in size. No displaced fractures.
--- NOTE | 2020-07-25 17:14 | ER ---
Nurse's Notes [facility] Name: Regis Benites Age: 49 yrs Sex: Male : 1970 Arrival Date: 07/25/2020 Time: 15:38 Bed 13 Private MD: Diagnosis: Hypoxia;Unspecified kidney failure;Coronavirus infection, unspecified Presentation: 07/25 15:53 Chief complaint: Patient states: "I was tested Wednesday and came back positive for COVID jd3 on Wednesday. I have been taking medication from [facility] and I am getting really short of breath that leaves me just on the floor." fever high at 102. Coronavirus screen: cough unrelated to allergies, difficulty breathing, fever, Client presents with at least one sign or symptom that may indicate coronavirus-19. Standard/surgical mask placed on the client. Provider contacted for isolation considerations. Ebola Screen: Patient negative for fever greater than or equal to 101.5 degrees Fahrenheit, and additional compatible Ebola Virus Disease symptoms. Initial Sepsis Screen: Does the patient meet any 2 criteria? RR > 20 per min. HR > 90 bpm. Yes Does the patient have a suspected source of infection? Yes: Productive cough/pneumonia. Risk Assessment: Do you want to hurt yourself or someone else? Patient reports no desire to harm self or others. Onset of symptoms was July 21, 2020. 15:53 Method Of Arrival: Ambulatory j 15:53 Acuity: ABBE 2 jd3 Historical: - Allergies: 15:56 No Known Allergies; jd3 - PMHx: 20:49 None; ca1 - PSHx: 15:56 None; jd3 - Immunization history:: Adult Immunizations up to date. - Social history:: Smoking status: Patient denies any tobacco usage or history of. Screenin:10 Abuse screen: Denies threats or abuse. Denies injuries from another. Nutritional ca1 screening: No deficits noted. Tuberculosis screening: No symptoms or risk factors identified. Fall Risk IV access (20 points). Assessment: 16:05 General: Appears in no apparent distress. comfortable, Behavior is calm, cooperative, ca1 appropriate for age. General: Reports fever for > 3 days, feeling ill for > 3 days. Pain: Denies pain. Neuro: Level of Consciousness is awake, alert, obeys commands, Oriented to person, place, time, situation. Cardiovascular: Heart tones S1 S2 present Capillary refill < 3 seconds Patient's skin is warm and dry. Rhythm is sinus tachycardia. Respiratory: Reports shortness of breath on exertion cough that is Airway is patent Respiratory effort is even, unlabored, Respiratory pattern is regular, symmetrical, Breath sounds are clear bilaterally. GI: Abdomen is round non-distended, Bowel sounds present X 4 quads. Abd is soft and non tender X 4 quads. : No signs and/or symptoms were reported regarding the genitourinary system. EENT: No signs and/or symptoms were reported regarding the EENT system. Derm: Skin is intact, is healthy with good turgor, Skin is pink, warm \\T\\ dry. Musculoskeletal: Circulation, motion, and sensation intact. Capillary refill < 3 seconds. 16:57 Reassessment: Patient appears in no apparent distress at this time. Patient and/or ca1 family updated on plan of care and expected duration. Pain level reassessed. Patient is alert, oriented x 3, equal unlabored respirations, skin warm/dry/pink. 17:55 Reassessment: Patient appears in no apparent distress at this time. Patient and/or ca1 family updated on plan of care and expected duration. Pain level reassessed. Patient is alert, oriented x 3, equal unlabored respirations, skin warm/dry/pink. 18:40 Reassessment: Patient appears in no apparent distress at this time. Patient and/or ca1 family updated on plan of care and expected duration. Pain level reassessed. Patient is alert, oriented x 3, equal unlabored respirations, skin warm/dry/pink. 19:42 Reassessment: attempt to call pt report, nurse unavailable, pt updated on delay for sg admission, stated understanding. 19:45 Reassessment: Patient appears in no apparent distress at this time. Patient and/or ca1 family updated on plan of care and expected duration. Pain level reassessed. Patient is alert, oriented x 3, equal unlabored respirations, skin warm/dry/pink. 20:45 Reassessment: Patient appears in no apparent distress at this time. Patient is alert, ca1 oriented x 3, equal unlabored respirations, skin warm/dry/pink. 21:36 Reassessment: Patient appears in no apparent distress at this time. Patient is alert, ca1 oriented x 3, equal unlabored respirations, skin warm/dry/pink. Vital Signs: 15:55 Pulse 115; Resp 22 S; Temp 103.3(O); Pulse Ox 92% on R/A; Weight 108.86 kg (R); Height jd3 5 ft. 10 in. (177.80 cm) (R); Pain 0/10; 16:10 Pulse Ox 86% on R/A; iw 16:11 Pulse Ox 89% on 2 lpm NC; iw 16:13 BP 171 / 100; Pulse 108; Resp 20; Pulse Ox 99% on 2 lpm NC; ca1 16:57 BP 161 / 103; Pulse 106; Resp 20; Pulse Ox 99% on 2 lpm NC; ca1 17:01 Temp 102.9(O); ca1 17:45 BP 145 / 109; Pulse 108; Resp 20; Pulse Ox 97% on 2 lpm NC; ca1 18:41 BP 135 / 97; Pulse 104; Resp 16 S; Temp 100.4(O); Pulse Ox 96% on 2 lpm NC; ca1 19:45 BP 159 / 84; Pulse 81; Resp 16 S; Temp 99.8(O); Pulse Ox 95% on 2 lpm NC; ca1 20:45 BP 141 / 98; Pulse 71; Resp 16 S; Pulse Ox 95% on 2 lpm NC; ca1 21:36 BP 146 / 95; Pulse 67; Resp 18 S; Pulse Ox 97% on 2 lpm NC; ca1 15:55 Body Mass Index 34.44 (108.86 kg, 177.80 cm) jd3 ED Course: 15:38 Patient arrived in ED. ag5 15:47 Sarah Manuel FNP-C [facility]. kb 15:48 Jones Zambrano MD is Attending Physician. kb 15:55 Triage completed. jd3 15:56 Arm band placed on. jd3 16:00 Alanis Doyle, LIZETH is Primary Nurse. ca1 16:09 Resting quietly. Awaiting for x-ray. iw 16:09 Patient has correct armband on for positive identification. Placed in gown. Bed in low iw position. Call light in reach. Side rails up X 1. senior business development manager on. Pulse ox on. NIBP on. 16:09 No provider procedures requiring assistance completed. Oxygen administration via nasal iw cannula \\T\\ 2L/min Response to oxygen therapy: symptoms improved. 16:21 Inserted saline lock: 22 gauge in right antecubital area, using aseptic technique. ca1 ,using aseptic technique. by DEBORAH isabel tech Blood collected. 16:21 Initial lab(s) drawn, by ED staff, sent to lab. First set of blood cultures drawn. ca1 16:54 Chest Single View XRAY In Process Unspecified. EDMS 16:57 Second set of blood cultures drawn by il. ca1 17:13 Mohamud Ariza is Hospitalizing Provider. kb 18:41 Patient admitted, IV remains in place. ca1 Administered Medications: 16:21 Drug: Tylenol 1000 mg Route: PO; ca1 18:40 Follow up: Response: No adverse reaction; Temperature is decreased ca1 17:26 Drug: Ibuprofen 600 mg Route: PO; ca1 18:40 Follow up: Response: No adverse reaction; Temperature is decreased ca1 17:26 Drug: Decadron - Dexamethasone 10 mg Route: IVP; Site: right antecubital; ca1 18:40 Follow up: Response: No adverse reaction ca1 18:06 Drug: Zithromax 500 mg Route: IVPB; Infused Over: 1 hrs; Site: right antecubital; ca1 19:10 Follow up: Response: No adverse reaction; IV Status: Completed infusion; IV Intake: ca1 250ml Intake: 19:10 IV: 250ml; Total: 250ml. ca1 Outcome: 17:14 Decision to Hospitalize by Provider. kb 20:52 Admitted to ICU accompanied by tech, via wheelchair, room 5, with chart, Report called ca1 to LIZETH Alejo 20:52 Condition: stable 20:52 Instructed on the need for admit. 21:47 Patient left the ED. ca1 Signatures: Dispatcher [employer] EDMS Sarah Manuel, PLAYGROUND EQUIPMENT ERECTOR-C PLAYGROUND EQUIPMENT ERECTOR-CkSuresh Brooks RN RN sg Williams, Irene, RN RN iw Davies, Jonathon, RN RN jd3 Acob, Cheryl RN RN ca1 Goldie Chang ag5 Corrections: (The following items were deleted from the chart) 15:56 15:53 Acuity: ABBE 3 jd3 jd3 16:56 16:05 Respiratory: Reports cough that is Airway is patent Respiratory effort is even, ca1 unlabored, Respiratory pattern is regular, symmetrical, Breath sounds are clear bilaterally. ca1 16:57 16:21 Initial lab(s) drawn, by ED staff, sent to lab. First set of blood cultures drawn ca1 ca1 16:58 16:13 BP 171 / 100; Pulse 108bpm; Resp 20bpm; Pulse Ox 99% RA; ca1 ca1 17:27 16:21 Inserted saline lock: 20 gauge in right antecubital area, using aseptic ca1 technique. ,using aseptic technique. by maame, distribution tech Blood collected. ca1 18:41 17:55 BP 135 / 97; Pulse 104bpm; Resp 16bpm; Spontaneous; Pulse Ox 96% RA; Temp 100.4F ca1 Oral; ca1
--- NOTE | 2020-07-25 17:14 | EDPHYS ---
Physician Documentation [facility] Name: Regis Benites Age: 49 yrs Sex: Male : 1970 Arrival Date: 07/25/2020 Time: 15:38 Bed 13 Private MD: ED Physician Jones Zambrano HPI: 07/25 16:52 This 49 yrs old Black Male presents to ER via Ambulatory with complaints of Cough, kb COVID+. 16:51 The patient or guardian reports cough, that is intermittent, described as moderate, flu kb symptoms, low-grade fever, myalgias. The patient has not experienced similar symptoms in the past. The patient has been recently seen by a physician:. 16:52 Onset: The symptoms/episode began/occurred 4 day(s) ago. Severity of symptoms: At their kb worst the symptoms were moderate, in the emergency department the symptoms are unchanged. Modifying factors: The symptoms are alleviated by nothing, the symptoms are aggravated by nothing. Associated signs and symptoms: Pertinent positives: fever, Pertinent negatives: chest pain, diarrhea, ear ache, nausea, rhinorrhea, sore throat, vomiting. Pt reports he has COVID, has a cough and fever. Has not been taking anything for the fever because his dr didn't prescribe anything. Historical: - Allergies: 15:56 No Known Allergies; jd3 - PMHx: 20:49 None; ca1 - PSHx: 15:56 None; jd3 - Immunization history:: Adult Immunizations up to date. - Social history:: Smoking status: Patient denies any tobacco usage or history of. ROS: 16:49 Cardiovascular: Negative for chest pain, palpitations, and edema, Abdomen/GI: Negative kb for abdominal pain, nausea, vomiting, diarrhea, and constipation, Back: Negative for injury and pain, MS/Extremity: Negative for injury and deformity, Skin: Negative for injury, rash, and discoloration, Neuro: Negative for headache, weakness, numbness, tingling, and seizure. 16:49 Constitutional: Positive for body aches, chills, fatigue, fever, malaise. 16:49 Respiratory: Positive for cough, shortness of breath, Negative for dyspnea on exertion, hemoptysis, orthopnea, pleurisy, sputum production, wheezing. Exam: 16:51 Constitutional: This is a well developed, well nourished patient who is awake, alert, kb and in no acute distress. Head/Face: Normocephalic, atraumatic. Chest/axilla: Normal chest wall appearance and motion. Nontender with no deformity. No lesions are appreciated. Cardiovascular: Regular rate and rhythm with a normal S1 and S2. No gallops, murmurs, or rubs. Normal PMI, no JVD. No pulse deficits. Abdomen/GI: Soft, non-tender, with normal bowel sounds. No distension or tympany. No guarding or rebound. No evidence of tenderness throughout. Skin: Warm, dry with normal turgor. Normal color with no rashes, no lesions, and no evidence of cellulitis. MS/ Extremity: Pulses equal, no cyanosis. Neurovascular intact. Full, normal range of motion. Neuro: Awake and alert, GCS 15, oriented to person, place, time, and situation. Cranial nerves II-XII grossly intact. Motor strength 5/5 in all extremities. Sensory grossly intact. Cerebellar exam normal. Normal gait. 16:51 Respiratory: the patient does not display signs of respiratory distress, Respirations: normal. Vital Signs: 15:55 Pulse 115; Resp 22 S; Temp 103.3(O); Pulse Ox 92% on R/A; Weight 108.86 kg (R); Height jd3 5 ft. 10 in. (177.80 cm) (R); Pain 0/10; 16:10 Pulse Ox 86% on R/A; iw 16:11 Pulse Ox 89% on 2 lpm NC; iw 16:13 BP 171 / 100; Pulse 108; Resp 20; Pulse Ox 99% on 2 lpm NC; ca1 16:57 BP 161 / 103; Pulse 106; Resp 20; Pulse Ox 99% on 2 lpm NC; ca1 17:01 Temp 102.9(O); ca1 17:45 BP 145 / 109; Pulse 108; Resp 20; Pulse Ox 97% on 2 lpm NC; ca1 18:41 BP 135 / 97; Pulse 104; Resp 16 S; Temp 100.4(O); Pulse Ox 96% on 2 lpm NC; ca1 19:45 BP 159 / 84; Pulse 81; Resp 16 S; Temp 99.8(O); Pulse Ox 95% on 2 lpm NC; ca1 20:45 BP 141 / 98; Pulse 71; Resp 16 S; Pulse Ox 95% on 2 lpm NC; ca1 21:36 BP 146 / 95; Pulse 67; Resp 18 S; Pulse Ox 97% on 2 lpm NC; ca1 15:55 Body Mass Index 34.44 (108.86 kg, 177.80 cm) jd3 MDM: 16:01 Patient medically screened. kb 16:48 Data reviewed: vital signs, nurses notes. Data interpreted: Pulse oximetry: on room air kb is 89 %. Interpretation: hypoxia. Plan: O2 by NC applied. ED course: O2 sat increased to 94% on 4L. 17:12 Counseling: I had a detailed discussion with the patient and/or guardian regarding: the kb historical points, exam findings, and any diagnostic results supporting the discharge/admit diagnosis, lab results, radiology results, the need for further work-up and treatment in the hospital. Physician consultation: oMhamud Ariza was contacted at 17:13, regarding admission, and will see patient in ED, shortly. 07/25 16:04 Order name: CBC with Diff; Complete Time: 17:09 kb 07/25 16:04 Order name: Basic Metabolic Panel; Complete Time: 16:53 kb 07/25 16:04 Order name: Lactate; Complete Time: 17:03 kb 07/25 16:04 Order name: Procalcitonin; Complete Time: 17:14 kb 07/25 16:04 Order name: Blood Culture Adult (2) 07/25 16:04 Order name: D-Dimer; Complete Time: 17:04 kb 07/25 15:48 Order name: Chest Single View XRAY; Complete Time: 17:03 kb 07/25 16:04 Order name: IV Start; Complete Time: 16:34 kb Administered Medications: 16:21 Drug: Tylenol 1000 mg Route: PO; ca1 18:40 Follow up: Response: No adverse reaction; Temperature is decreased ca1 17:26 Drug: Ibuprofen 600 mg Route: PO; ca1 18:40 Follow up: Response: No adverse reaction; Temperature is decreased ca1 17:26 Drug: Decadron - Dexamethasone 10 mg Route: IVP; Site: right antecubital; ca1 18:40 Follow up: Response: No adverse reaction ca1 18:06 Drug: Zithromax 500 mg Route: IVPB; Infused Over: 1 hrs; Site: right antecubital; ca1 19:10 Follow up: Response: No adverse reaction; IV Status: Completed infusion; IV Intake: ca1 250ml Disposition: 07/26 06:01 Co-signature as Attending Physician, Jones Zambrano MD I agree with the assessment and [facility] plan of care. Disposition: 07/25/20 17:14 Hospitalization ordered by Mohamud Ariza for Inpatient Admission. Preliminary diagnosis are Hypoxia, Unspecified kidney failure, Coronavirus infection, unspecified. - Bed requested for Intensive Care Unit. - Status is Inpatient Admission. ca1 - Condition is Stable. - Problem is new. - Symptoms are unchanged. Signatures: Dispatcher [employer] EDMS Sarah Manuel, FRAME TABLE OPERATOR-C FRAME TABLE OPERATOR-Audrey Haynes, RN RN Jones Cutler MD MD cha Davies, Jonathon, RN RN jd3 Alanis Doyle RN RN ca1 Corrections: (The following items were deleted from the chart) 07/25 18:40 17:14 Hospitalization Ordered by Mohamud Ariza for Inpatient Admission. Preliminary dw diagnosis is Hypoxia; Unspecified kidney failure; Coronavirus infection, unspecified. Bed requested for Telemetry/MedSurg (Inpatient). Status is Inpatient Admission. Condition is Stable. Problem is new. Symptoms are unchanged. kb 21:47 18:40 07/25/2020 17:14 Hospitalization Ordered by Mohamud Ariza for Inpatient ca1 Admission. Preliminary diagnosis is Hypoxia; Unspecified kidney failure; Coronavirus infection, unspecified. Bed requested for Intensive Care Unit. Status is Inpatient Admission. Condition is Stable. Problem is new. Symptoms are unchanged. dw
--- NOTE | 2020-07-25 17:33 | P.HP ---
Certification for Inpatient Patient admitted to: Inpatient With expected LOS: >2 Midnights Practitioner: I am a practitioner with admitting privileges, knowledge of patient current condition, hospital course, and medical plan of care. Services: Services provided to patient in accordance with Admission requirements found in Title 42 Section 412.3 of the Code of Federal Regulations Patient History Date of Service: 07/25/20 Reason for admission: Shortness of breath History of Present Illness: 49-year-old gentleman with a history of hypertension, chronic kidney disease presented to the emergency department with a complaint of progressive shortness of breath and cough. Patient positive for COVID 19 2 days ago. He was prescribed azithromycin, multivitamins and zinc. Patient reports blood-stained sputum. He was hypoxic on room air in the ED and was requiring 2 L of oxygen by nasal cannula for his SaO2 to stay above 90%. Fever of 103 was recorded in the ED. Chest x-ray demonstrated bilateral infiltrates indicating a viral pneumonitis. His D-dimer is elevated but cannot perform CTA thorax to rule out pulmonary embolism due to his renal insufficiency. Patient is admitted further management of COVID pneumonia with hypoxia. Allergies No Known Drug Allergies Allergy (Unverified 01/14/15 10:03) Unknown - Past Medical/Surgical History -: Hypertension -: Chronic kidney disease -: None - Family History Father -: Diabetes - Social History Smoking Status: Never smoker Alcohol use: Yes CD- Drugs: No Place of Residence: Home Review of Systems Other: Patient denied any chest pain or abdominal pain or diarrhea or nausea or vomiting. Except as documented, all other systems reviewed and negative. Physical Examination - Physical Exam General: Alert, In no apparent distress HEENT: Normocephalic, Mucous membr. moist/pink, Sclerae nonicteric Neck: Supple, JVD not distended Respiratory: Clear to auscultation bilaterally, Normal air movement Cardiovascular: No edema, Regular rate/rhythm, Normal S1 S2 Gastrointestinal: Normal bowel sounds, Soft and benign, No tenderness Musculoskeletal: No swelling Integumentary: No rashes, No erythema Neurological: Normal speech, Normal strength at 5/5 x4 extr - Studies Laboratory Data (last 24 hrs) 07/25/20 16:25: Sodium 137, Potassium 3.5, BUN 44 H, Creatinine 4.24 H, Glucose 247 H 07/25/20 16:25: WBC 7.2, Hgb 12.6 L, Hct 39.0 L, Plt Count 137 L Assessment and Plan - Problems (Diagnosis) (1) Pneumonia due to COVID-19 virus Current Visit: Yes Status: Acute (2) Acute respiratory failure with hypoxia Current Visit: Yes Status: Acute (3) Hypertension Current Visit: Yes Status: Acute (4) Chronic kidney disease, stage 4 (severe) Current Visit: Yes Status: Acute (5) Elevated d-dimer Current Visit: Yes Status: Acute - Plan Admit patient. Start IV dexamethasone. Oxygen by nasal cannula and titrate. Vitamin viyrpclnpyqoapv-aypqjmg-R and vitamin-C Oral zinc daily Will also anticoagulate with Eliquis given the elevated D-dimer. Monitor CRP. Consult to pulmonary. Continue home antihypertensives. Monitor renal function. - Advance Directives Does patient have a Living Will: No Does patient have a Durable POA for Healthcare: No
[2020-07-25] MEDS ORDERED: dexAMETHasone 10 MG/ML VIAL ONE (17:35)
[2020-07-25] MEDS ORDERED: IBUPROFEN 200 MG TAB PO ONE (17:36)
[2020-07-25] MEDS ORDERED: IBUPROFEN 400 MG TAB ONE (17:36)
[2020-07-25] MEDS ORDERED: AZITHROMYCIN IV 500 MG in NA CHLORIDE 0.9% 250 ML IVPB ONE (18:00)
[2020-07-25] MEDS: dexAMETHasone 10 MG/ML VIAL IV SCH (21:16)
[2020-07-25] MEDS ORDERED: ACETAMINOPHEN 500 MG TAB PO PRN (21:16)
[2020-07-25 22:57] VITALS: BMI 34.9
[2020-07-25] MEDS: APIXABAN 5 MG TABLET PO SCH (22:58)
[2020-07-26 04:15] LABS: Basophils % 0.4 % (0-1.3); Hematocrit 40.3 % (39.6-49.0); Lymphocytes % 15.2 % (15.3-44.8); MPV 8.6 fL (7.6-11.3); RBC Red Blood Cell Count 5.54 M/uL (4.33-5.43)
[2020-07-26 04:22] LABS: Magnesium 2.6 mg/dL (1.8-2.4); Phosphorus 3.7 mg/dL (2.5-4.9); Potassium 4.4 mmol/L (3.5-5.1)
[2020-07-26] MEDS: dexAMETHasone 10 MG/ML VIAL IV SCH (08:38)
[2020-07-26] MEDS: APIXABAN 5 MG TABLET PO SCH (08:38)
[2020-07-26] MEDS ORDERED: VITAMIN D 1000 UNIT TAB PO SCH (09:00)
[2020-07-26] MEDS ORDERED: ZINC SULFATE 220 MG CAP PO SCH (09:00)
[2020-07-26] MEDS ORDERED: METOPROLOL TAR 50 MG TAB PO SCH (09:00)
[2020-07-26] MEDS ORDERED: FEBUXOSTAT 40 MG PO SCH (09:00)
[2020-07-26] MEDS ORDERED: VALSARTAN 160 MG TAB PO SCH (09:00)
[2020-07-26] MEDS ORDERED: ASCORBIC ACID 500 MG TABLET PO SCH (09:00)
[2020-07-26] MEDS ORDERED: INFLUENZA VACCINE (for 3y+) 0.5 ML DOSE IMVAC ONE (10:00)
--- NOTE | 2020-07-26 11:58 | P.PN ---
Subjective Date of Service: 07/26/20 Chief Complaint: Shortness of breath Subjective: No new changes Patient states he feels much better compared to yesterday. He is tolerating 2 L of oxygen by nasal cannula. He is eating well, denies shortness of breath at rest. Physical Examination - Vital Signs Temperature: 98.0 F Blood Pressure: 136/99 Pulse: 70 Respirations: 21 Pulse Ox (%): 94 - Physical Exam General: Alert, In no apparent distress Respiratory: Clear to auscultation bilaterally, Normal air movement Cardiovascular: No edema, Regular rate/rhythm Gastrointestinal: Non-distended, No tenderness Musculoskeletal: No swelling, No erythema Integumentary: No rashes Neurological: Other (Nonfocal) - Studies Laboratory Data (last 24 hrs) 07/25/20 16:25: Sodium 137, Potassium 3.5, BUN 44 H, Creatinine 4.24 H, Glucose 247 H 07/25/20 16:25: WBC 7.2, Hgb 12.6 L, Hct 39.0 L, Plt Count 137 L Assessment And Plan - Current Problems (Diagnosis) (1) Pneumonia due to COVID-19 virus Current Visit: Yes Status: Acute (2) Acute respiratory failure with hypoxia Current Visit: Yes Status: Acute (3) Hypertension Current Visit: Yes Status: Acute (4) Chronic kidney disease, stage 4 (severe) Current Visit: Yes Status: Acute (5) Elevated d-dimer Current Visit: Yes Status: Acute - Plan Continue IV dexamethasone. Oxygen by nasal cannula and titrate. Vitamin qohyaswcyitnpqs-iifgqwg-X and vitamin-C Oral zinc daily Continue Eliquis given the elevated D-dimer. Monitor CRP daily. Continue home antihypertensives. Monitor renal function.
[2020-07-26 17:15] VITALS: O2SAT 90
[2020-07-26 18:08] VITALS: BP 136/99; TEMP 98
--- NOTE | 2020-07-26 18:08 | P.DS ---
Admission Date: 07/25/20 Discharge Date: 07/26/20 Disposition: ROUTINE DISCHARGE Discharge Condition: FAIR Reason for Admission: Shortness of breath - Problems (1) Pneumonia due to COVID-19 virus Current Visit: Yes Status: Acute (2) Acute respiratory failure with hypoxia Current Visit: Yes Status: Acute (3) Hypertension Current Visit: Yes Status: Acute (4) Chronic kidney disease, stage 4 (severe) Current Visit: Yes Status: Acute (5) Elevated d-dimer Current Visit: Yes Status: Acute Brief History of Present Illness: 49-year-old gentleman with a history of hypertension, chronic kidney disease presented to the emergency department with a complaint of progressive shortness of breath and cough. Patient positive for COVID 19 2 days ago. He was prescribed azithromycin, multivitamins and zinc. Patient reported blood-stained sputum. He was hypoxic on room air in the ED and was requiring 2 L of oxygen by nasal cannula for his SaO2 to stay above 90%. Fever of 103 was recorded in the ED. Chest x-ray demonstrated bilateral infiltrates indicating a viral pneumonitis. His D-dimer is elevated but cannot perform CTA thorax to rule out pulmonary embolism due to his renal insufficiency. Patient was admitted further management of COVID pneumonia with hypoxia. Hospital Course: Patient admitted and started on IV steroid, Eliquis for anticoagulation given his elevated D-dimer. He was placed on supplemental oxygen. He clinically improved with a steroid and tolerated room air at rest today. Patient desaturated to the low 80s with ambulation and was noted to be quite short of breath during ambulation. His vitals have been stable. He has been afebrile since hospitalization. He has clinically improved and will be discharged home to continue oral prednisone therapy, and anticoagulation with Eliquis. He will follow with Dr. Montero within 1 week. Vital Signs/Physical Exam: Temp Pulse Resp BP Pulse Ox 98.6 F 69 24 H 128/92 H 90 L 07/26/20 16:00 07/26/20 16:00 07/26/20 16:00 07/26/20 16:00 07/26/20 16:00 General: Alert, In no apparent distress HEENT: Mucous membr. moist/pink Respiratory: Normal air movement Cardiovascular: Regular rate/rhythm, Normal S1 S2 Gastrointestinal: Non-distended Musculoskeletal: No swelling Integumentary: No rashes Laboratory Data at Discharge: WBC 6.6 K/uL (4.3-10.9) 07/26/20 03:48 Hgb 13.0 g/dL (13.6-17.9) L 07/26/20 03:48 Hct 40.3 % (39.6-49.0) 07/26/20 03:48 Plt Count 149 K/uL (152-406) L 07/26/20 03:48 Sodium 139 mmol/L (136-145) 07/26/20 03:48 Potassium 4.4 mmol/L (3.5-5.1) 07/26/20 03:48 BUN 49 mg/dL (7-18) H 07/26/20 03:48 Creatinine 4.32 mg/dL (0.55-1.3) H 07/26/20 03:48 Glucose 204 mg/dL (74-106) H 07/26/20 03:48 Phosphorus 3.7 mg/dL (2.5-4.9) 07/26/20 03:48 Magnesium 2.6 mg/dL (1.8-2.4) H 07/26/20 03:48 Home Medications: Ascorbic Acid/Ascorbate Sodium [Vit C-Denise Hips 500 mg Chew Tb] 1 tab PO DAILY 07/25/20 Candesartan Cilexetil 32 mg PO DAILY 07/25/20 Diphenhydra/Phenyleph/Acetamin [Cold & Flu Relief Multi-Sym Lq] 30 ml PO Q6HP PRN 07/25/20 Febuxostat 40 mg PO DAILY 07/25/20 Metoprolol Tartrate 100 mg PO BID 07/25/20 Multivitamin [Multiple Vitamins] 1 each PO DAILY 07/25/20 Vit D3/Vit K2/Calc Frutoborate [Move Free Wbmzc-[id number]-U8-D3] 1 each PO DAILY 07/25/20 Zinc Sulfate [Zinc Sulfate*] 220 mg PO DAILY 07/25/20 Apixaban [Eliquis] 5 mg PO BID #60 tablet 07/26/20 Zinc Sulfate [Zinc Sulfate*] 220 mg PO DAILY #30 cap 07/26/20 dexAMETHasone [Dexamethasone] 6 mg PO BID #28 tablet 07/26/20 New Medications: dexAMETHasone [Dexamethasone] 6 mg PO BID #28 tablet Apixaban [Eliquis] 5 mg PO BID #60 tablet Zinc Sulfate [Zinc Sulfate*] 220 mg PO DAILY #30 cap Diet: AHA Activity: Ad catia Followup: Yair Montero MD [ACTIVE - CAN ADMIT] - 1 Week Jai Zuleta MD [Primary Care Provider] - 1-2 Weeks Time spent managing pt's care (in minutes): 36
== END 2020-07-26 18:35 | disposition home or self-care (01) | DRG 177 ==
LOC: ER 15:36 → ERHOLD 17:18 → 3RD-ICU 21:43
PROVIDERS: ADMIT Internal Medicine; ATTEND Internal Medicine
DX: U07.1 COVID-19 (principal); J12.89 Other viral pneumonia; J96.01 Acute respiratory failure with hypoxia; N18.4 Chronic kidney disease, stage 4 (severe); I12.9 Hypertensive chronic kidney disease with stage 1 through stage 4 chronic kidney disease, or unspecified chronic kidney disease; R79.1 Abnormal coagulation profile; Z79.01 Long term (current) use of anticoagulants; Z79.899 Other long term (current) drug therapy
CPT/HCPCS: 36415; 71045; 80048; 83605; 83735; 84100; 84145; 85025; 85379; 86140; 87040; 94760; 96365; 96375; 99285; J0456; J1100; J7050

== ENCOUNTER 2023-02-02 16:58 | Inpatient (IN) | payer SELFPAY ==
--- OUTSIDE RECORDS SUMMARY | 2023-02-02 17:03 | XMS REPORT | Continuity of Care Document ---
:1970 Author Organization [facility] Address [address] [address] [place] [address] Care Team Providers Name Role Phone Luis Antonio Mayorga Attending Clinician Luis Antonio Mayorga Admitting Clinician Problems Condition Condition Condition Status Onset Resolution Last Treating Co mments Source Name Details Category Date Date Treatment Clinician Date PANCREATIT PANCREATI Diagnosis Active 2019-10-23 Memoria IS, RENAL TIS, RENAL 2-10 21:47:00 l INSUFFICEN INSUFFICEN 00:00: He rmann CY CY Active 00 10/16/2019 [facility] Acute Acute Problem 2019-10-20 Memor ia pancreatit pancreatit 23:30:46 l is with is with [place] infected infected necrosis, necrosis, unspecifie unspecifie d d 10/20/2019 [facility] ACUTE ACUTE Diagnosis Active 2019-10-23 Mem oria PANCREATIT PANCREATIT 21:47:00 l IS WITH IS WITH [place] INFECTED INFECTED NECROSI NECROSI Active [facility] Allergies, Adverse Reactions, Alerts This patient has no known allergies or adverse reactions. Medications Ordered Filled Start Stop Current Ordering Indication Dosage Frequency Signature Comments Components Source Medication Medication Date Date Medication? Clinician (SIG) Name Name NIFEdipine Yes 60 mg = 1 Me moria 60 mg oral 2-12 tab, PO, l tablet, 20:41: BID, # 60 Saima nn extended 00 tab, 0 release Refill(s), Pharmacy: [facility] #[id number] apixaban 5 Yes See Memoria MG Oral 2-12 Instructio l Tablet 20:41: ns, Start Jeffyr n [Eliquis] 00 at 10 mg (2 tabs) q12h x 4 days then decrease to 5 mg PO q12h, # 76 tab, 0 Refill(s), Pharmacy: [facility] #[id number] NIFEdipine 2020-0 Yes 60 mg = 1 Me moria 60 mg oral 2-12 tab, PO, l tablet, 20:41: BID, # 60 Saima nn extended 00 tab, 0 release Refill(s), Pharmacy: [facility] #[id number] apixaban 5 2020-0 Yes See Memoria MG Oral 2-12 Instructio l Tablet 20:41: ns, Start Jeffry n [Eliquis] 00 at 10 mg (2 tabs) q12h x 4 days then decrease to 5 mg PO q12h, # 76 tab, 0 Refill(s), Pharmacy: [facility] #[id number] NIFEdipine 2020-0 No 30 mg, Memor ia 30 mg oral 2-12 Route: PO, l tablet, 15:00: Drug form: Herm krunal extended 00 ERTAB, release BID, Dosing Weight 120.625, kg, Start date: 10/18/19 9:00:00 [employer]CH[employer]IC, Duration: 30 day, Stop date: 11/16/19 17:00:00 CDT NIFEdipine 2020-0 No 30 mg, Memor ia 30 mg oral 2-12 Route: PO, l tablet, 15:00: Drug form: Herm krunal extended 00 ERTAB, release BID, Dosing Weight 120.625, kg, Start date: 10/18/19 9:00:00 LIN[employer]YPE MECHANIC, Duration: 30 day, Stop date: 11/16/19 17:00:00 CDT Lactated 2020-0 No 1,000 mL, Syed eva Ringers IV 2-11 Rate: 150 l 1,000 mL 20:52: ml/hr, [place] 00 Infuse over: 6.7 hr, Route: IV, Dosing Weight 120.625 kg, Total Volume: 1,000, Start date: 10/17/19 14:52:00 [employer]YPE [employer]CH[employer]IC, Duration: 30 day, Stop date: 11/16/19 14:51:00 CDT, 2.47, m2, 0 Lactated 2020-0 No 1,000 mL, Syed eva Ringers IV 2-11 Rate: 150 l 1,000 mL 20:52: ml/hr, [place] 00 Infuse over: 6.7 hr, Route: IV, Dosing Weight 120.625 kg, Total Volume: 1,000, Start date: 10/17/19 14:52:00 [employer]YPE [employer]CH[employer]IC, Duration: 30 day, Stop date: 11/16/19 14:51:00 CDT, 2.47, m2, 0 heparin 2020-0 No Notes: Memoria 2-10 porcine l 22:00: heparin [place] 00 heparin 2020-0 No Notes: Memoria 2-10 porcine l 22:00: heparin Lactated 2020-0 No 1,000 mL, Syed eva Ringers IV 2-10 Rate: 250 l 1,000 mL 21:30: ml/hr, Infuse over: 4 hr, Route: IV, Dosing Weight 120.455 kg, Total Volume: 1,000, Start date: 10/16/19 15:30:00 LINOTYPE MECHANIC, Duration: 30 day, Stop date: 11/15/19 15:29:00 CDT, 2.47, m2, 0 Lactated 2020-0 No 1,000 mL, Syed eva Ringers IV 2-10 Rate: 250 l 1,000 mL 21:30: ml/hr, Infuse over: 4 hr, Route: IV, Dosing Weight 120.455 kg, Total Volume: 1,000, Start date: 10/16/19 15:30:00 [employer]YPE MECH[employer]IC, Duration: 30 day, Stop date: 11/15/19 15:29:00 CDT, 2.47, m2, 0 msg to RN 2020-0 No msg to RNMe chacon 2-10 pls update l 18:50: pt info in [address], Drug form: MISC, Route: MISC, ONCE, 10/16/19 12:50:00 LIN[employer]YPE MECHANIC, Stop date: 10/16/19 12:50:00 LINOTYPE MECHANIC, 0 msg to RN 2020-0 No msg to RN, Me moria 2-10 pls update l 18:50: pt info in [place] [facility], Drug form: MISC, Route: MISC, ONCE, 10/16/19 12:50:00 LINOTYPE MECHANIC, Stop date: 10/16/19 12:50:00 LINOTYPE MECHANIC, 0 Heparin - 2020-0 No 7,400 Memoria one time 2-10 unit, 7.4 l bolus for 18:45: mL, Route: He rmann DVT/PE 00 IVP, Drug form: INJ, ONCE, Dosing Weight 120.455, kg, Priority: STAT, Start date: 10/16/19 12:45:00 LINOTYPE MECHANIC, Stop date: 10/16/19 12:45:00 LINOTYPE MECHANIC, 0 Heparin 80 2020-0 No Route: Memor ia unit/kg 2-10 IVP, PRN, l Bolus 18:45: 7,400 [place] (Heparin 00 unit, 7.4 Dosing mL, Drug Weight) form: INJ, PRN, Heparin Protocol, Start date: 10/16/19 12:45:00 LINOTYPE MECH[employer]IC Stop date: 11/15/19 13:44:00 CDT, 30 day, 0 Heparin 40 2020-0 No Route: Memor ia unit/kg 2-10 IVP, PRN, l Bolus 18:45: 3,700 [place] (Heparin 00 unit, 3.7 Dosing mL, Drug Weight) form: INJ, PRN, Heparin Protocol, Start date: 10/16/19 12:45:00 LIN[employer]YPE MECH[employer]IC Stop date: 11/15/19 13:44:00 CDT, 30 day, 0 heparin 2020-0 No 500 mL, Memoria additive 2-10 Rate: l 25,000 unit 18:45: 33.11 Saima nn [18 00 ml/hr, unit/kg/hr] Infuse + Premix over: 15.1 Diluent hr, Route: Dextrose 5% IV, Dosing 500 mL Weight 91.98 kg, Total Volume: 500 mL, Start date: 10/16/19 12:45:00 LINOTYPE MECHANIC, Duration: 30 day, Stop date: 11/15/19 12:44:00 CDT, 2.15, m2, 0 Heparin - 2020-0 No 7,400 Memoria one time 2-10 unit, 7.4 l bolus for 18:45: mL, Route: He rmann DVT/PE 00 IVP, Drug form: INJ, ONCE, Dosing Weight 120.455, kg, Priority: STAT, Start date: 10/16/19 12:45:00 LINOTYPE MECHANIC, Stop date: 10/16/19 12:45:00 LINOTYPE MECHANIC, 0 Heparin 80 2020-0 No Route: Memor ia unit/kg 2-10 IVP, PRN, l Bolus 18:45: 7,400 [place] (Heparin 00 unit, 7.4 Dosing mL, Drug Weight) form: INJ, PRN, Heparin Protocol, Start date: 10/16/19 12:45:00 LIN[employer]YPE MECH[employer]IC Stop date: 11/15/19 13:44:00 CDT, 30 day, 0 Heparin 40 2020-0 No Route: Memor ia unit/kg 2-10 IVP, PRN, l Bolus 18:45: 3,700 [place] (Heparin 00 unit, 3.7 Dosing mL, Drug Weight) form: INJ, PRN, Heparin Protocol, Start date: 10/16/19 12:45:00 LIN[employer]YPE MECH[employer]IC Stop date: 11/15/19 13:44:00 CDT, 30 day, 0 heparin 2020-0 No 500 mL, Memoria additive 2-10 Rate: l 25,000 unit 18:45: 33.11 Saima nn [18 00 ml/hr, unit/kg/hr] Infuse + Premix over: 15.1 Diluent hr, Route: Dextrose 5% IV, Dosing 500 mL Weight 91.98 kg, Total Volume: 500 mL, Start date: 10/16/19 12:45:00 LINOTYPE MECHANIC, Duration: 30 day, Stop date: 11/15/19 12:44:00 CDT, 2.15, m2, 0 normal 2020-0 No 1,000 mL, Memori a saline 0.9% 2-10 Rate: 200 l IV 1,000 mL 16:30: ml/hr, Herm krunal 00 Infuse over: 5 hr, Route: IV, Total Volume: 1,000, Start date: 10/16/19 10:30:00 LINOTYPE MECHANIC, Duration: 30 day, Stop date: 11/15/19 10:29:00 CDT, 0 normal 2020-0 No 1,000 mL, Memori a saline 0.9% 2-10 Rate: 200 l IV 1,000 mL 16:30: ml/hr, Herm krunal 00 Infuse over: 5 hr, Route: IV, Total Volume: 1,000, Start date: 10/16/19 10:30:00 LINOTYPE MECHANIC, Duration: 30 day, Stop date: 11/15/19 10:29:00 CDT, 0 Amlodipine 2020-0 No Notes: Memor ia 2-10 (Same as: l 16:29: Norvasc) Deniz 00 metoprolol 2020-0 No Notes: Memor ia tartrate 2-10 (Same as: l 16:29: Lopressor) Amlodipine 2019-0 No Notes: Memor ia 2-10 (Same as: l 16:29: Norvasc) metoprolol 2019-0 No Notes: Memor ia tartrate 2-10 (Same as: l 16:29: Lopressor) Ondansetron 2019-0 No Notes: Syed eva 2-10 (Same as: l 16:28: Zofran) MEDICATION WASTE Product Size: 4 mg Product Wasted: ___ mg Hydromorpho 2020-0 No Notes: Syed eva ne 2-10 Same as: l 16:28: Dilaudid Ondansetron 2019-0 No Notes: Syed eva 2-10 (Same as: l 16:28: Zofran) MEDICATION WASTE Product Size: 4 mg Product Wasted: ___ mg Hydromorpho 2019-0 No Notes: Syed eva ne 2-10 Same as: l 16:28: Dilaudid metoprolol 2019-0 Yes 100 mg = 1 M emoria tartrate 2-10 tab, PO, l 100 mg oral 15:44: BID, # 60 H ermann tablet 00 tab, 0 Refill(s) candesartan 2020-0 No 32 mg = 1 M emoria 32 mg oral 2-10 tab, PO, l tablet 15:44: Daily, # Deniz 00 30 tab, 0 Refill(s) febuxostat 2020-0 Yes 40 mg = 1 Me moria 40 mg oral 2-10 tab, PO, l tablet 15:44: Daily, # Deniz 00 30 tab, 0 Refill(s) Amlodipine 2019-0 No 10 mg, PO, M emoria 2-10 Daily, 0 l 15:44: Refill(s) metoprolol 2020-0 Yes 100 mg = 1 M emoria tartrate 2-10 tab, PO, l 100 mg oral 15:44: BID, # 60 H ermann tablet 00 tab, 0 Refill(s) candesartan 2020-0 No 32 mg = 1 M emoria 32 mg oral 2-10 tab, PO, l tablet 15:44: Daily, # [place] 00 30 tab, 0 Refill(s) febuxostat 2020-0 Yes 40 mg = 1 Me moria 40 mg oral 2-10 tab, PO, l tablet 15:44: Daily, # [place] 00 30 tab, 0 Refill(s) Amlodipine 2020-0 No 10 mg, PO, M emoria 2-10 Daily, 0 l 15:44: Refill(s) Dextrose 2020-0 No 12.5 gm, Memor ia 50% Syringe 2-10 25 mL, l (D50W) 15:42: Route: [place] 00 IVP, Drug Form: INJ, kg, PRN, PRN Blood Glucose Results, Start date: 10/16/19 9:42:00 LINOTYPE MECHANIC, Duration: 30 day, Stop date: 11/15/19 10:41:00 CDT, 0 Glucagon 2020-0 No 1 mg, Memoria 2-10 Route: IM, l 15:42: Drug form: [place] 00 PDR/INJ, PRN, kg, PRN Blood Glucose Results, Start date: 10/16/19 9:42:00 LINOTYPE MECHANIC, Duration: 30 day, Stop date: 11/15/19 10:41:00 CDT, 0 Dextrose 2020-0 No 12.5 gm, Memor ia 50% Syringe 2-10 25 mL, l (D50W) 15:42: Route: IVP, Drug Form: INJ, kg, PRN, PRN Blood Glucose Results, Start date: 10/16/19 9:42:00 LINOTYPE MECHANIC, Duration: 30 day, Stop date: 11/15/19 10:41:00 CDT, 0 Glucagon 2020-0 No 1 mg, Memoria 2-10 Route: IM, l 15:42: Drug form: PDR/INJ, PRN, kg, PRN Blood Glucose Results, Start date: 10/16/19 9:42:00 LINOTYPE MECHANIC, Duration: 30 day, Stop date: 11/15/19 10:41:00 CDT, 0 Vital Signs Vital Name Observation Time Observation Value Comments Source Temperature Oral (F) 2019-10-18 22:00:00 98.[address] F [facility] Heart Rate 2019-10-18 22:00:00 [facility] [place] Respitory Rate 2019-10-18 22:00:00 Memori al [place] Systolic (mm Hg) 2019-10-18 22:00:00 Syed rial [place] Diastolic (mm Hg) 2019-10-18 22:00:00 Mem orial [place] Temperature Oral (F) 2019-10-18 18:00:00 98.1 F [facility] [place] Heart Rate 2019-10-18 18:00:00 [facility] [place] Respitory Rate 2019-10-18 18:00:00 Memori al [place] Systolic (mm Hg) 2019-10-18 18:00:00 Syed rial [place] Diastolic (mm Hg) 2019-10-18 18:00:00 Mem orial [place] Temperature Oral (F) 2019-10-18 14:00:00 98.4 F [facility] [place] Heart Rate 2019-10-18 14:00:00 [facility] [place] Respitory Rate 2019-10-18 14:00:00 Memori al [place] Systolic (mm Hg) 2019-10-18 14:00:00 Syed rial [place] Diastolic (mm Hg) 2019-10-18 14:00:00 Mem orial [place] Height 2019-10-17 15:24:00 177.8 cm [facility] [place] Weight 2019-10-17 15:24:00 [facility] [place] BMI Calculated 2019-10-17 15:24:00 Memori al [place] Height 2019-10-16 22:51:00 177.8 cm [facility] [place] Weight 2019-10-16 22:51:00 [facility] [place] BMI Calculated 2019-10-16 22:51:00 Memori al [place] Height 2019-10-16 22:44:00 177.8 cm [facility] [place] Weight 2019-10-16 22:44:00 [facility] [place] BMI Calculated 2019-10-16 22:44:00 Memori al [place] Procedures This patient has no known procedures. Encounters Start End Encounter Admission Attending Care Care Encounter Source Date/Time Date/Time Type Type Clinicians Facility Department ID 2019-10-16 Inpatient U [facility] [id number] [facility] L 09:25:00 2019-10-16 2019-10-19 Inpatient [facility] [id number] Memoria 15:25:00 01:03:00 r [place] 41 l [facility] 2019-10-16 2019-10-19 Inpatient nullFlavo [facility] [id number] Memoria 15:25:00 01:03:00 r [place] 41 l [facility] 2019-10-16 2019-10-18 Outpatient [place], [facility] [id number] 09:25:00 19:03:00 Luis Antonio Smith Results Test Description Test Time Test Comments Results Result Comments Source URINE CHEM 2019-10-19 00:05:00 Test Item Value Reference Range Interpretation Comme nts Ur Protein (test code = Ur Protein) 167.3 [facility] [id number] 00:05:00 Test Item Value Reference Range Interpretation Comments TV Protein (ml) (test code = TV Protein 3200 800-1800 (ml)) [facility] [id number] 00:05:00 Test Item Value Reference Range Interpretation Comments U Prot 24Hrs Col (test 24 (10/18/19 6:05 PM) code = U Prot 24Hrs Col) [facility] [id number] 00:05:00 Test Item Value Reference Range Interpretation Comments U24 Protein (test code = U24 Protein) 5354 [facility] [id number] 00:05:00 Test Item Value Reference Range Interpretation Comments Ur Protein (test code = Ur Protein) 167.3 [facility] [id number] 00:05:00 Test Item Value Reference Range Interpretation Comments TV Protein (ml) (test code = TV Protein 3200 800-1800 (ml)) [facility] [id number] 00:05:00 Test Item Value Reference Range Interpretation Comments U Prot 24Hrs Col (test 24 (10/18/19 6:05 PM) code = U Prot 24Hrs Col) [facility] [id number] 00:05:00 Test Item Value Reference Range Interpretation Comments U24 Protein (test code = U24 Protein) [facility]354 [facility]32 19:21:00 Test Item Value Reference Range Interpretation Comments PTT (test code = PTT) 88.8 s 22.9-35.8 [id number] 19:21:00 Test Item Value Reference Range Interpretation Comments PTT (test code = PTT) 88.8 s 22.9-35.8 [id number] 11:17:00 Test Item Value Reference Range Interpretation Comments Lymphocytes # (test code = Lymphocytes 1.9 1.0-5.5 #) [id number] 11:17:00 Test Item Value Reference Range Interpretation Comments Monocytes # (test code 0.9 See_Comment [Aut omated message] The = Monocytes #) system which generated this result tra nsmitted reference range : <=0.8. The reference r juan was not used to int erpret this result as normal/abnormal . [place] [id number] 11:17:00 Test Item Value Reference Range Interpretation Comments Eosinophils # (test code 0.1 See_Comment [A utomated message] The = Eosinophils #) system whic h generated this result tra nsmitted reference range : <=0.5. The reference r juan was not used to int erpret this result as normal/abnormal . [place] 375240-02-12 11:17:00 Test Item Value Reference Range Interpretation Comments Basophils # (test code 0.1 See_Comment [Aut omated message] The = Basophils #) system which generated this result tra nsmitted reference range : <=0.2. The reference r juan was not used to int erpret this result as normal/abnormal . [facility] Hospit[id number] 11:17:00 Test Item Value Reference Range Interpretation Comments Microcyte (test code = 2+ *ABN*(10/18/19 Microcyte) 5:17 AM) [place] [id number] 11:17:00 Test Item Value Reference Range Interpretation Comments Amylase Lvl (test code = Amylase Lvl) 96 25-115 [place] [id number] 11:17:00 Test Item Value Reference Range Interpretation Comments Glucose Lvl (test code = Glucose Lvl) 138 70-99 [place] [id number] 11:17:00 Test Item Value Reference Range Interpretation Comments BUN (test code = BUN) 22 7-22 [place] [id number] 11:17:00 Test Item Value Reference Range Interpretation Comments Creatinine Lvl (test code = Creatinine 2.18 0.50-1.40 Lvl) [place] [id number] 11:17:00 Test Item Value Reference Range Interpretation Comments Sodium Lvl (test code = Sodium Lvl) 140 135-145 [place] [id number] 11:17:00 Test Item Value Reference Range Interpretation Comments Potassium Lvl (test code = Potassium 3.5 3.5-5.1 Lvl) [facility]2020-02-12 11:17:00 Test Item Value Reference Range Interpretation Comments Chloride Lvl (test code = Chloride Lvl) 107 95-109 [facility]2020-02-12 11:17:00 Test Item Value Reference Range Interpretation Comments CO2 (test code = CO2) 25 24-32 [facility]2020-02-12 11:17:00 Test Item Value Reference Range Interpretation Comments Calcium Lvl (test code = Calcium Lvl) 8.6 8.5-10.5 [facility]2020-02-12 11:17:00 Test Item Value Reference Range Interpretation Comments AGAP (test code = AGAP) 11.5 10.0-20.0 [facility]2020-02-12 11:17:00 Test Item Value Reference Range Interpretation Comments eGFR (test code = eGFR) 39 [facility] H[id number] 11:17:00 Test Item Value Reference Range Interpretation Comments WBC (test code = WBC) 7.9 3.7-10.4 [place] 375240-02-12 11:17:00 Test Item Value Reference Range Interpretation Comments RBC (test code = RBC) 5.10 4.70-6.10 [place] 375240-02-12 11:17:00 Test Item Value Reference Range Interpretation Comments Hgb (test code = Hgb) 11.9 14.0-18.0 [place] [address]-02-12 11:17:00 Test Item Value Reference Range Interpretation Comments Hct (test code = Hct) 36.9 42.0-54.0 [place] [address]-02-12 11:17:00 Test Item Value Reference Range Interpretation Comments MCV (test code = MCV) 72.4 80.0-94.0 [place] [address]-02-12 11:17:00 Test Item Value Reference Range Interpretation Comments MCH (test code = MCH) 23.3 pg 27.0-31.0 [place] [address]-02-12 11:17:00 Test Item Value Reference Range Interpretation Comments MCHC (test code = MCHC) 32.1 32.0-36.0 [facility] H[id number] 11:17:00 Test Item Value Reference Range Interpretation Comments RDW (test code = RDW) 15.7 11.5-14.5 [facility] HospitalZjbhfwhOVBFSOJHNA3682-01-41 11:17:00 Test Item Value Reference Range Interpretation Comments Platelet (test code = Platelet) 205 133-450 [facility] HospitalCrogcdtDURMDTHFKK5270-07-15 11:17:00 Test Item Value Reference Range Interpretation Comments MPV (test code = MPV) 7.3 7.4-10.4 [place] 375240-02-12 11:17:00 Test Item Value Reference Range Interpretation Comments PTT (test code = PTT) 109.0 s 22.9-35.8 [facility] HospitalDoiuxrpGNGDIEZIQR5897-78-27 11:17:00 Test Item Value Reference Range Interpretation Comments Segs (test code = Segs) 62.7 45.0-75.0 [place] 375240-02-12 11:17:00 Test Item Value Reference Range Interpretation Comments Lymphocytes (test code = Lymphocytes) 24.6 20.0-40.0 [facility] Hos[id number] 11:17:00 Test Item Value Reference Range Interpretation Comments Monocytes (test code = Monocytes) 11.0 2.0-12.0 [facility] Hos[id number] 11:17:00 Test Item Value Reference Range Interpretation Comments Eosinophils (test code = 1.0 See_Comment [A utomated message] The Eosinophils) system which ge nerated this result tra nsmitted reference range : <=4.0. The reference r juan was not used to int erpret this result as normal/abnormal . [place] 375240-02-12 11:17:00 Test Item Value Reference Range Interpretation Comments Basophils (test code = 0.7 See_Comment [Aut omated message] The Basophils) system which ge nerated this result tra nsmitted reference range : <=1.0. The reference r juan was not used to int erpret this result as normal/abnormal . [place] 375240-02-12 11:17:00 Test Item Value Reference Range Interpretation Comments Neutrophils # (test code = Neutrophils 4.9 1.5-8.1 #) [place] 375240-02-12 11:17:00 Test Item Value Reference Range Interpretation Comments Lymphocytes # (test code = Lymphocytes 1.9 1.0-5.5 #) [place] 375240-02-12 11:17:00 Test Item Value Reference Range Interpretation Comments Monocytes # (test code 0.9 See_Comment [Aut omated message] The = Monocytes #) system which generated this result tra nsmitted reference range : <=0.8. The reference r juan was not used to int erpret this result as normal/abnormal . [place] 375240-02-12 11:17:00 Test Item Value Reference Range Interpretation Comments Eosinophils # (test code 0.1 See_Comment [A utomated message] The = Eosinophils #) system whic h generated this result tra nsmitted reference range : <=0.5. The reference r juan was not used to int erpret this result as normal/abnormal . [place] 375240-02-12 11:17:00 Test Item Value Reference Range Interpretation Comments Basophils # (test code 0.1 See_Comment [Aut omated message] The = Basophils #) system which generated this result tra nsmitted reference range : <=0.2. The reference r juan was not used to int erpret this result as normal/abnormal . [place] 375240-02-12 11:17:00 Test Item Value Reference Range Interpretation Comments Microcyte (test code = 2+ *ABN*(10/18/19 Microcyte) 5:17 AM) [place] 975410-02-12 11:17:00 Test Item Value Reference Range Interpretation Comments Amylase Lvl (test code = Amylase Lvl) 96 25-115 [place] 975410-02-12 11:17:00 Test Item Value Reference Range Interpretation Comments Glucose Lvl (test code = Glucose Lvl) 138 70-99 [place] 975410-02-12 11:17:00 Test Item Value Reference Range Interpretation Comments BUN (test code = BUN) 22 7-22 [place] 975410-02-12 11:17:00 Test Item Value Reference Range Interpretation Comments Creatinine Lvl (test code = Creatinine 2.18 0.50-1.40 Lvl) [facility]2020-02-12 11:17:00 Test Item Value Reference Range Interpretation Comments Sodium Lvl (test code = Sodium Lvl) 140 135-145 [facility]2020-02-12 11:17:00 Test Item Value Reference Range Interpretation Comments Potassium Lvl (test code = Potassium 3.5 3.5-5.1 Lvl) [facility]2020-02-12 11:17:00 Test Item Value Reference Range Interpretation Comments Chloride Lvl (test code = Chloride Lvl) 107 95-109 [facility]2020-02-12 11:17:00 Test Item Value Reference Range Interpretation Comments CO2 (test code = CO2) 25 24-32 [place] 975410-02-12 11:17:00 Test Item Value Reference Range Interpretation Comments Calcium Lvl (test code = Calcium Lvl) 8.6 8.5-10.5 [facility]2020-02-12 11:17:00 Test Item Value Reference Range Interpretation Comments AGAP (test code = AGAP) 11.5 10.0-20.0 [facility]2020-02-12 11:17:00 Test Item Value Reference Range Interpretation Comments eGFR (test code = eGFR) 39 [facility] HospitalTpokiqkJLDYLLLSGJ8631-18-95 11:17:00 Test Item Value Reference Range Interpretation Comments WBC (test code = WBC) 7.9 3.7-10.4 [place] 375240-02-12 11:17:00 Test Item Value Reference Range Interpretation Comments RBC (test code = RBC) 5.10 4.70-6.10 [place] [address]-02-12 11:17:00 Test Item Value Reference Range Interpretation Comments Hgb (test code = Hgb) 11.9 14.0-18.0 [place] [address]-02-12 11:17:00 Test Item Value Reference Range Interpretation Comments Hct (test code = Hct) 36.9 42.0-54.0 [place] [address]-02-12 11:17:00 Test Item Value Reference Range Interpretation Comments MCV (test code = MCV) 72.4 80.0-94.0 [place] [address]-02-12 11:17:00 Test Item Value Reference Range Interpretation Comments MCH (test code = MCH) 23.3 pg 27.0-31.0 [place] 375240-02-12 11:17:00 Test Item Value Reference Range Interpretation Comments MCHC (test code = MCHC) 32.1 32.0-36.0 [place] 375240-02-12 11:17:00 Test Item Value Reference Range Interpretation Comments RDW (test code = RDW) 15.7 11.5-14.5 [place] 375240-02-12 11:17:00 Test Item Value Reference Range Interpretation Comments Platelet (test code = Platelet) 205 133-450 [facility] HospitalKeqardcAPCCQJLGEY3765-74-98 11:17:00 Test Item Value Reference Range Interpretation Comments MPV (test code = MPV) 7.3 7.4-10.4 [place] [address]-02-12 11:17:00 Test Item Value Reference Range Interpretation Comments PTT (test code = PTT) 109.0 s 22.9-35.8 [place] [address]-02-12 11:17:00 Test Item Value Reference Range Interpretation Comments Segs (test code = Segs) 62.7 45.0-75.0 [place] [address]-02-12 11:17:00 Test Item Value Reference Range Interpretation Comments Lymphocytes (test code = Lymphocytes) 24.6 20.0-40.0 [place] [address]-02-12 11:17:00 Test Item Value Reference Range Interpretation Comments Monocytes (test code = Monocytes) 11.0 2.0-12.0 [place] [address]-02-12 11:17:00 Test Item Value Reference Range Interpretation Comments Eosinophils (test code = 1.0 See_Comment [A utomated message] The Eosinophils) system which ge nerated this result tra nsmitted reference range : <=4.0. The reference r juan was not used to int erpret this result as normal/abnormal . [place] 375240-02-12 11:17:00 Test Item Value Reference Range Interpretation Comments Basophils (test code = 0.7 See_Comment [Aut omated message] The Basophils) system which ge nerated this result tra nsmitted reference range : <=1.0. The reference r juan was not used to int erpret this result as normal/abnormal . [place] 375240-02-12 11:17:00 Test Item Value Reference Range Interpretation Comments Neutrophils # (test code = Neutrophils 4.9 1.5-8.1 #) [place] 375240-02-12 03:30:00 Test Item Value Reference Range Interpretation Comments PT (test code = PT) 14.6 s 12.0-14.7 [place] [address]-02-12 03:30:00 Test Item Value Reference Range Interpretation Comments INR (test code = INR) 1.13 1 0.85-1.17 [place] [address]-02-12 03:30:00 Test Item Value Reference Range Interpretation Comments PTT (test code = PTT) 62.9 s 22.9-35.8 [place] [address]-02-12 03:30:00 Test Item Value Reference Range Interpretation Comments PT (test code = PT) 14.6 s 12.0-14.7 [place] [address]-02-12 03:30:00 Test Item Value Reference Range Interpretation Comments INR (test code = INR) 1.13 1 0.85-1.17 [place] [address]-02-12 03:30:00 Test Item Value Reference Range Interpretation Comments PTT (test code = PTT) 62.9 s 22.9-35.8 [place] 740080-02-11 21:33:00 Test Item Value Reference Range Interpretation Comments C-ANCA (test code = Negative (10/17/19 3:33 C-ANCA) PM) [place] [address]-02-11 21:33:00 Test Item Value Reference Range Interpretation Comments P-ANCA (test code = Negative (10/17/19 3:33 P-ANCA) PM) [place] [address]-02-11 21:33:00 Test Item Value Reference Range Interpretation Comments OMAIRA (test code = OMAIRA) Negative 5(10/17/19 3:33 PM) [place] 740080-02-11 21:33:00 Test Item Value Reference Range Interpretation Comments C3 Complement (test code = C3 152 88-201 Complement) [place] 740080-02-11 21:33:00 Test Item Value Reference Range Interpretation Comments C4 Complement (test code = C4 42 16-47 Complement) [facility]PukyzqnCNIIMGVOUH6168-60-72 21:33:00 Test Item Value Reference Range Interpretation Comments DNA Ab (DS) (test Negative (10/17/19 3:33 code = DNA Ab (DS)) PM) [facility] HospitalTprovkgMEPLNKFFLH0073-49-71 21:33:00 Test Item Value Reference Range Interpretation Comments Hep Bs Ag (test code Negative *NA*(10/17/19 = Hep Bs Ag) 3:33 PM) [facility] HospitalFhbosyyIOBQNPVZGF7679-32-79 21:33:00 Test Item Value Reference Range Interpretation Comments Hep C Ab (test code = Negative *NA*(10/17/19 Hep C Ab) 3:33 PM) [facility] HospitalElkxbctHNSRNEIBXL8790-54-62 21:33:00 Test Item Value Reference Range Interpretation Comments Albumin % (test code = Albumin %) 44.2 55.8-66.1 [facility] HospitalJqgqcaxFXQVQFXTIF9799-64-92 21:33:00 Test Item Value Reference Range Interpretation Comments Alpha 1 % (test code = Alpha 1 %) 6.6 2.8-4.9 [facility] HospitalWwsyuklARRPHXKLXT2456-41-50 21:33:00 Test Item Value Reference Range Interpretation Comments Alpha 2 % (test code = Alpha 2 %) 14.7 7.0-11.9 [place] 740080-02-11 21:33:00 Test Item Value Reference Range Interpretation Comments Beta % (test code = Beta %) 16.2 7.8-13.7 [place] 740080-02-11 21:33:00 Test Item Value Reference Range Interpretation Comments Gamma % (test code = Gamma %) 18.3 11.1-18.7 [place] 740080-02-11 21:33:00 Test Item Value Reference Range Interpretation Comments Albumin (SPE) (test code = Albumin 3.27 3.57-5.55 (SPE)) [facility] HospitalKifqndtABQZGVHMPO3789-36-08 21:33:00 Test Item Value Reference Range Interpretation Comments Alpha 1 Glob (test code = Alpha 1 Glob) 0.49 0.18-0.41 [place] 740080-02-11 21:33:00 Test Item Value Reference Range Interpretation Comments Alpha 2 Glob (test code = Alpha 2 Glob) 1.09 0.45-1.00 [facility]MghdxzfQJAJLEMYAJ7332-41-61 21:33:00 Test Item Value Reference Range Interpretation Comments Beta Glob (test code = Beta Glob) 1.20 0.50-1.15 [facility] HospitalJvkifnhULUNROHAKL1773-33-59 21:33:00 Test Item Value Reference Range Interpretation Comments Gamma Glob (test code = Gamma Glob) 1.35 0.71-1.57 [facility] HospitalPizpvelPLBOXPQDYT5538-91-26 21:33:00 Test Item Value Reference Range Interpretation Comments Tot Prot (SPE) (test code = Tot Prot 7.4 6.4-8.4 (SPE)) [facility] HospitalWorgdeyGJBSAPVLYZ3992-98-80 21:33:00 Test Item Value Reference Range Interpretation Comments SPE Interp (test Total protein is normal code = SPE Interp) with a decrease in serum albumin. Serum capillary protein electrophoresis shows elevated alpha and beta globulin fractions. The electrophoretic pattern is consistent with the acute phase of an inflammatory process. Clinical correlation is required. No definite monoclonal proteins are identified. However, an area of asymmetry is noted within the polyclonal gamma fraction and, therefore, an underlying monoclonal protein cannot be excluded. Clinical correlation is recommended with immunofixation electrophoresis of serum and urine if clinically indicated. Interpretation performed at [facility]. [facility] HospitalJamhakaUCFPLQDBXP9926-75-84 21:33:00 Test Item Value Reference Range Interpretation Comments LIANNE Ser Pattern Diffusely immunoreactive (test code = LIANNE bands are noted in the Ser Pattern) IgG, IgA, IgM, kappa and lambda lanes. No monoclonal bands are identified. Interpretation performed at [facility]. [facility] HospitalBucqvztIOCBSYCZIH4474-93-74 21:33:00 Test Item Value Reference Range Interpretation Comments LIANNE Ser Interp Serum immunofixation (test code = LIANNE electrophoresis reveals a Ser Interp) polyclonal pattern of immunoglobulins. No monoclonal proteins are identified. Interpretation performed at [facility]. [facility] HospitalAkeotfyMRUWCHYYOV9838-21-24 21:33:00 Test Item Value Reference Range Interpretation Comments [place] [employer] [place]ains (test code = 49.35 3.30-19.40 [place] [employer] [place]) [facility] HospitalBodsazlWVBUQMGXQI4590-23-43 21:33:00 Test Item Value Reference Range Interpretation Comments Lambda Free Light Chains (test code = 32.21 5.70-26.30 Lambda Free Light Chains) [facility] HospitalJfzilzeVSUYKCURPM3508-18-08 21:33:00 Test Item Value Reference Range Interpretation Comments [place]/Lambda Free Light Chains Ratio 1.53 0.26-1.65 (test code = [place]/Lambda Free Light Chains Ratio) [facility] HospitalMmujpbjMNPQELAUUR4006-90-76 21:33:00 Test Item Value Reference Range Interpretation Comments RF Qnt (test code = no gt See_Comment [Automa herlinda message] The RF Qnt) system which ge nerated this result transmit herlinda reference range : <=20. The reference range was not used to interpr et this result as pascual l/abnormal. [facility] HospitalMkncaomWKDHNGLBEK4633-26-57 21:33:00 Test Item Value Reference Range Interpretation Comments C-ANCA (test code = Negative (10/17/19 3:33 C-ANCA) PM) [facility] HospitalCkglkbrNCULTAEXZS2822-86-58 21:33:00 Test Item Value Reference Range Interpretation Comments P-ANCA (test code = Negative (10/17/19 3:33 P-ANCA) PM) [facility] HospitalYadoufuIFTGSMYTBQ0868-00-85 21:33:00 Test Item Value Reference Range Interpretation Comments OMAIRA (test code = OMAIRA) Negative 5(10/17/19 3:33 PM) [facility] HospitalBnvtpgxIMFSMDCVHM5519-66-49 21:33:00 Test Item Value Reference Range Interpretation Comments C3 Complement (test code = C3 152 88-201 Complement) [facility] HospitalBaaikfsPGGMIOXZNB1603-95-04 21:33:00 Test Item Value Reference Range Interpretation Comments C4 Complement (test code = C4 42 16-47 Complement) [facility] HospitalUplyzzbUGCRLTJUZS5370-88-34 21:33:00 Test Item Value Reference Range Interpretation Comments DNA Ab (DS) (test Negative (10/17/19 3:33 code = DNA Ab (DS)) PM) [facility] HospitalQsusrtpAWVURFXASD5763-13-93 21:33:00 Test Item Value Reference Range Interpretation Comments Hep Bs Ag (test code Negative *NA*(10/17/19 = Hep Bs Ag) 3:33 PM) [facility] HospitalClrktwnWQAOYTNSMO4113-50-75 21:33:00 Test Item Value Reference Range Interpretation Comments Hep C Ab (test code = Negative *NA*(10/17/19 Hep C Ab) 3:33 PM) [facility] HospitalVisyfllXBFBMDFGWM6187-92-32 21:33:00 Test Item Value Reference Range Interpretation Comments Albumin % (test code = Albumin %) 44.2 55.8-66.1 [facility] HospitalQtubrcjUCOXSQYSXV9745-89-48 21:33:00 Test Item Value Reference Range Interpretation Comments Alpha 1 % (test code = Alpha 1 %) 6.6 2.8-4.9 [facility] HospitalYljwffrOSNINSLREF7894-64-51 21:33:00 Test Item Value Reference Range Interpretation Comments Alpha 2 % (test code = Alpha 2 %) 14.7 7.0-11.9 [facility] HospitalYjqsnofULOVLSJUYB9243-89-06 21:33:00 Test Item Value Reference Range Interpretation Comments Beta % (test code = Beta %) 16.2 7.8-13.7 [facility] HospitalOxajddbKQWXYEDUSO7744-45-30 21:33:00 Test Item Value Reference Range Interpretation Comments Gamma % (test code = Gamma %) 18.3 11.1-18.7 [facility] HospitalOhdyicmONXPLQSCEJ7367-84-04 21:33:00 Test Item Value Reference Range Interpretation Comments Albumin (SPE) (test code = Albumin 3.27 3.57-5.55 (SPE)) [facility] HospitalTxjfffnQEJCCYLGJQ7782-34-10 21:33:00 Test Item Value Reference Range Interpretation Comments Alpha 1 Glob (test code = Alpha 1 Glob) 0.49 0.18-0.41 [facility] HospitalYtixkgvMKJUEDLSDD3160-08-58 21:33:00 Test Item Value Reference Range Interpretation Comments Alpha 2 Glob (test code = Alpha 2 Glob) 1.09 0.45-1.00 [facility] HospitalTbwqhynWYYSHNAMSV0030-85-54 21:33:00 Test Item Value Reference Range Interpretation Comments Beta Glob (test code = Beta Glob) 1.20 0.50-1.15 [facility] HospitalCcbyercJOLGGHJUEX8280-74-56 21:33:00 Test Item Value Reference Range Interpretation Comments Gamma Glob (test code = Gamma Glob) 1.35 0.71-1.57 [facility] HospitalGduaithGEWLJWMYDQ3442-37-73 21:33:00 Test Item Value Reference Range Interpretation Comments Tot Prot (SPE) (test code = Tot Prot 7.4 6.4-8.4 (SPE)) [facility] HospitalQuxsaiuKKEOJUTOLY8506-83-66 21:33:00 Test Item Value Reference Range Interpretation Comments SPE Interp (test Total protein is normal code = SPE Interp) with a decrease in serum albumin. Serum capillary protein electrophoresis shows elevated alpha and beta globulin fractions. The electrophoretic pattern is consistent with the acute phase of an inflammatory process. Clinical correlation is required. No definite monoclonal proteins are identified. However, an area of asymmetry is noted within the polyclonal gamma fraction and, therefore, an underlying monoclonal protein cannot be excluded. Clinical correlation is recommended with immunofixation electrophoresis of serum and urine if clinically indicated. Interpretation performed at [facility]. [facility] HospitalTrufghwRJQXBPFTDA2163-68-20 21:33:00 Test Item Value Reference Range Interpretation Comments LIANNE Ser Pattern Diffusely immunoreactive (test code = LIANNE bands are noted in the Ser Pattern) IgG, IgA, IgM, kappa and lambda lanes. No monoclonal bands are identified. Interpretation performed at [facility]. [facility] HospitalWevhopaCYAITIYKQU2129-31-18 21:33:00 Test Item Value Reference Range Interpretation Comments LIANNE Ser Interp Serum immunofixation (test code = LIANNE electrophoresis reveals a Ser Interp) polyclonal pattern of immunoglobulins. No monoclonal proteins are identified. Interpretation performed at [facility]. [facility] HospitalVbihgxlCJROXHZFUM9208-35-15 21:33:00 Test Item Value Reference Range Interpretation Comments [place] [employer] [place] (test code = 49.35 3.30-19.40 [place] [employer] [place]) [facility] HospitalGifngjsOSVQHMQYNT8929-45-05 21:33:00 Test Item Value Reference Range Interpretation Comments [place] [employer] [place] Chains (test code = 32.21 5.70-26.30 [place] [employer] [place]) [facility] HospitalNtzxnzoGLXYYYKMUE1667-91-44 21:33:00 Test Item Value Reference Range Interpretation Comments [place] [employer] [place] Chains Ratio 1.53 0.26-1.65 (test code = [place]/Lambda [employer] [place] Chains Ratio) [facility] HospitalDaqvwoiMKYAATOODD4967-77-65 21:33:00 Test Item Value Reference Range Interpretation Comments RF Qnt (test code = no gt See_Comment [Automa herlinda message] The RF Qnt) system which ge nerated this result transmit herlinda reference range : <=20. The reference range was not used to interpr et this result as pascual l/abnormal. [facility] AND [id number] 17:49:00 Test Item Value Reference Range Interpretation Comments UA Bili (test code = Negative *NA*(10/17/19 UA Bili) 11:49 AM) [facility] [id number] 17:49:00 Test Item Value Reference Range Interpretation Comments UA Blood (test code = Small *ABN*(10/17/19 UA Blood) 11:49 AM) [facility] [id number] 17:49:00 Test Item Value Reference Range Interpretation Comments UA Nitrite (test code Negative (10/17/19 11:49 = UA Nitrite) AM) [facility] [id number] 17:49:00 Test Item Value Reference Range Interpretation Comments UA Leuk Est (test Negative (10/17/19 11:49 code = UA Leuk Est) AM) [facility] [id number] 17:49:00 Test Item Value Reference Range Interpretation Comments UA RBC (test code = 7 See_Comment [Automa herlinda message] The UA RBC) system which ge nerated this result transmit herlinda reference range : <=2. The reference range was not used to interpr et this result as pascual l/abnormal. [facility] [id number] 17:49:00 Test Item Value Reference Range Interpretation Comments UA Sq Epi (test code = UA Sq Epi) None Seen [facility] [id number] 17:49:00 Test Item Value Reference Range Interpretation Comments UA Color (test code = UA Color) [facility]AW [facility] [id number] 17:49:00 Test Item Value Reference Range Interpretation Comments UA Urobilinogen (test code = UA <=1.0 mg/dL 0.1-1.0 Urobilinogen) [facility] [id number] 17:49:00 Test Item Value Reference Range Interpretation Comments U Creatinine (test code = U Creatinine) no gt [facility]ann[facility] [id number] 17:49:00 Test Item Value Reference Range Interpretation Comments U Protein (test code = U Protein) 124.6 [facility] [id number] 17:49:00 Test Item Value Reference Range Interpretation Comments U Prot/Creat (test See Note 1(10/17/19 code = U Prot/Creat) 11:49 AM) [facility] [id number] 17:49:00 Test Item Value Reference Range Interpretation Comments U Osmolality (test code = U Osmolality) 366 300-800 [facility]2020-02-11 17:49:00 Test Item Value Reference Range Interpretation Comments U Eos (test code = U None Seen (10/17/19 Eos) 11:49 AM) [facility]2020-02-11 17:49:00 Test Item Value Reference Range Interpretation Comments U Sodium (test code = U Sodium) 94 [facility]2020-02-11 17:49:00 Test Item Value Reference Range Interpretation Comments U Potassium (test code = U Potassium) 6.3 [facility]2020-02-11 17:49:00 Test Item Value Reference Range Interpretation Comments U Chloride (test code = U Chloride) 82 [facility] AND [id number] 17:49:00 Test Item Value Reference Range Interpretation Comments UA Turbidity (test code = Clear (10/17/19 11:49 UA Turbidity) AM) [facility] AND [id number] 17:49:00 Test Item Value Reference Range Interpretation Comments UA Spec Grav (test code = UA Spec 1.006 1 Grav) [facility] AND [id number] 17:49:00 Test Item Value Reference Range Interpretation Comments UA pH (test code = UA pH) 8.0 1 5.0-8.0 [facility] AND [id number] 17:49:00 Test Item Value Reference Range Interpretation Comments UA Protein (test code = UA Protein) 100 mg/dL [facility] AND [id number] 17:49:00 Test Item Value Reference Range Interpretation Comments UA Glucose (test code = UA Negative mg/dL Glucose) [facility] AND [id number] 17:49:00 Test Item Value Reference Range Interpretation Comments UA Ketones (test code = UA Negative mg/dL Ketones) [facility] AND [id number] 17:49:00 Test Item Value Reference Range Interpretation Comments UA Ketones (test code = UA Negative mg/dL Ketones) [facility] AND [id number] 17:49:00 Test Item Value Reference Range Interpretation Comments UA Bili (test code = Negative *NA*(10/17/19 UA Bili) 11:49 AM) [facility] AND [id number] 17:49:00 Test Item Value Reference Range Interpretation Comments UA Blood (test code = Small *ABN*(10/17/19 UA Blood) 11:49 AM) [facility] [id number] 17:49:00 Test Item Value Reference Range Interpretation Comments UA Nitrite (test code Negative (10/17/19 11:49 = UA Nitrite) AM) [facility] AND [id number] 17:49:00 Test Item Value Reference Range Interpretation Comments UA Leuk Est (test Negative (10/17/19 11:49 code = UA Leuk Est) AM) [facility] [id number] 17:49:00 Test Item Value Reference Range Interpretation Comments UA RBC (test code = 7 See_Comment [Automa herlinda message] The UA RBC) system which ge nerated this result transmit herlinda reference range : <=2. The reference range was not used to interpr et this result as pascual l/abnormal. [facility] AND [id number] 17:49:00 Test Item Value Reference Range Interpretation Comments UA Sq Epi (test code = UA Sq Epi) None Seen [facility] [id number] 17:49:00 Test Item Value Reference Range Interpretation Comments UA Color (test code = UA Color) STRAW [facility] AND [id number] 17:49:00 Test Item Value Reference Range Interpretation Comments UA Urobilinogen (test code = UA <=1.0 mg/dL 0.1-1.0 Urobilinogen) [facility] [id number] 17:49:00 Test Item Value Reference Range Interpretation Comments U Creatinine (test code = U Creatinine) no gt [facility] [id number] 17:49:00 Test Item Value Reference Range Interpretation Comments U Protein (test code = U Protein) 124.6 [facility] [id number] 17:49:00 Test Item Value Reference Range Interpretation Comments U Prot/Creat (test See Note 1(10/17/19 code = U Prot/Creat) 11:49 AM) [facility] [id number] 17:49:00 Test Item Value Reference Range Interpretation Comments U Osmolality (test code = U Osmolality) 366 300-800 [facility] [id number] 17:49:00 Test Item Value Reference Range Interpretation Comments U Eos (test code = U None Seen (10/17/19 Eos) 11:49 AM) [facility] [id number] 17:49:00 Test Item Value Reference Range Interpretation Comments U Sodium (test code = U Sodium) 94 [facility] [id number] 17:49:00 Test Item Value Reference Range Interpretation Comments U Potassium (test code = U Potassium) 6.3 [facility] [id number] 17:49:00 Test Item Value Reference Range Interpretation Comments U Chloride (test code = U Chloride) 82 [facility] [id number] 17:49:00 Test Item Value Reference Range Interpretation Comments UA Turbidity (test code = Clear (10/17/19 11:49 UA Turbidity) AM) [facility] [id number] 17:49:00 Test Item Value Reference Range Interpretation Comments UA Spec Grav (test code = UA Spec 1.006 1 Grav) [facility] AND [id number] 17:49:00 Test Item Value Reference Range Interpretation Comments UA pH (test code = UA pH) 8.0 1 5.0-8.0 [facility] [id number] 17:49:00 Test Item Value Reference Range Interpretation Comments UA Protein (test code = UA Protein) 100 mg/dL [facility] AND [id number] 17:49:00 Test Item Value Reference Range Interpretation Comments UA Glucose (test code = UA Negative mg/dL Glucose) [facility]CARD[facility] [id number] 14:03:00 Test Item Value Reference Range Interpretation Comments Total CK (test code = Total CK) 159 12-191 [facility] HospitalD&B Auto SolutionsCHEM [id number] 14:03:00 Test Item Value Reference Range Interpretation Comments Magnesium Lvl (test code = Magnesium 2.2 1.8-2.4 Lvl) [facility]annCHEM [id number] 14:03:00 Test Item Value Reference Range Interpretation Comments Phosphorus (test code = Phosphorus) 2.8 2.5-4.5 [facility] [id number] 14:03:00 Test Item Value Reference Range Interpretation Comments C-REACTIVE PROTEIN (test code = 126.0 C-REACTIVE PROTEIN) [facility] HospitalC[facility] [id number] 14:03:00 Test Item Value Reference Range Interpretation Comments Total CK (test code = Total CK) 159 12-191 [facility]2020-02-11 14:03:00 Test Item Value Reference Range Interpretation Comments Magnesium Lvl (test code = Magnesium 2.2 1.8-2.4 Lvl) [facility]2020-02-11 14:03:00 Test Item Value Reference Range Interpretation Comments Phosphorus (test code = Phosphorus) 2.8 2.5-4.5 [facility] Hos[id number] 14:03:00 Test Item Value Reference Range Interpretation Comments C-REACTIVE PROTEIN (test code = 126.0 C-REACTIVE PROTEIN) [facility]2020-02-11 07:35:00 Test Item Value Reference Range Interpretation Comments Amylase Lvl (test code = Amylase Lvl) 267 25-115 [facility]2020-02-11 07:35:00 Test Item Value Reference Range Interpretation Comments Glucose Lvl (test code = Glucose Lvl) 129 70-99 [facility]2020-02-11 07:35:00 Test Item Value Reference Range Interpretation Comments BUN (test code = BUN) 23 7-22 [facility] [facility] 07:[facility]00 Test Item Value Reference Range Interpretation Comments Creatinine Lvl (test code = Creatinine 2.27 0.50-1.40 Lvl) [facility]2020-02-11 07:35:00 Test Item Value Reference Range Interpretation Comments Sodium Lvl (test code = Sodium Lvl) 141 135-145 [facility]2020-02-11 07:35:00 Test Item Value Reference Range Interpretation Comments Potassium Lvl (test code = Potassium 3.5 3.5-5.1 Lvl) [facility]2020-02-11 07:35:00 Test Item Value Reference Range Interpretation Comments Chloride Lvl (test code = Chloride Lvl) 108 95-109 [facility]2020-02-11 07:35:00 Test Item Value Reference Range Interpretation Comments CO2 (test code = CO2) 28 24-32 [place] 975410-02-11 07:35:00 Test Item Value Reference Range Interpretation Comments Calcium Lvl (test code = Calcium Lvl) 8.9 8.5-10.5 [facility] [id number] 07:35:00 Test Item Value Reference Range Interpretation Comments AGAP (test code = AGAP) 8.5 10.0-20.0 [facility] [id number] 07:35:00 Test Item Value Reference Range Interpretation Comments eGFR (test code = eGFR) 37 [facility]rbfzvwTRCLHAKLWQ0271-88-24 07:35:00 Test Item Value Reference Range Interpretation Comments WBC (test code = WBC) 9.7 3.7-10.4 [facility] HospitalXpxndvzBCRFZQMKLN4858-17-31 07:35:00 Test Item Value Reference Range Interpretation Comments RBC (test code = RBC) 5.06 4.70-6.10 [facility] HospitalTmmcggzAXRXUKUGJR9750-57-03 07:35:00 Test Item Value Reference Range Interpretation Comments Hgb (test code = Hgb) 12.1 14.0-18.0 [place] 375240-02-11 07:35:00 Test Item Value Reference Range Interpretation Comments Hct (test code = Hct) 36.9 42.0-54.0 [facility] HospitalPpazyefDXUMOZQXAC0900-02-77 07:35:00 Test Item Value Reference Range Interpretation Comments MCV (test code = MCV) 72.9 80.0-94.0 [facility] HospitalFyondzvTWEKPZNSSO9079-28-10 07:35:00 Test Item Value Reference Range Interpretation Comments MCH (test code = MCH) 23.8 pg 27.0-31.0 [facility] HospitalGqwfhdpASRQRCCABW0950-69-90 07:35:00 Test Item Value Reference Range Interpretation Comments MCHC (test code = MCHC) 32.7 32.0-36.0 [place] 375240-02-11 07:35:00 Test Item Value Reference Range Interpretation Comments RDW (test code = RDW) 15.8 11.5-14.5 [facility] HospitalNuplaonJCPWBHKSUC1142-58-73 07:35:00 Test Item Value Reference Range Interpretation Comments Platelet (test code = Platelet) 214 133-450 [facility] HospitalYnzvlhyCFZDMOSZTB8434-99-12 07:35:00 Test Item Value Reference Range Interpretation Comments MPV (test code = MPV) 7.9 7.4-10.4 [place] 375240-02-11 07:35:00 Test Item Value Reference Range Interpretation Comments Segs (test code = Segs) 66.5 45.0-75.0 [place] 375240-02-11 07:35:00 Test Item Value Reference Range Interpretation Comments Lymphocytes (test code = Lymphocytes) 21.0 20.0-40.0 [place] 375240-02-11 07:35:00 Test Item Value Reference Range Interpretation Comments Monocytes (test code = Monocytes) 11.0 2.0-12.0 [place] 375240-02-11 07:35:00 Test Item Value Reference Range Interpretation Comments Eosinophils (test code = 1.1 See_Comment [A utomated message] The Eosinophils) system which ge nerated this result tra nsmitted reference range : <=4.0. The reference r juan was not used to int erpret this result as normal/abnormal . [place] 375240-02-11 07:35:00 Test Item Value Reference Range Interpretation Comments Basophils (test code = 0.4 See_Comment [Aut omated message] The Basophils) system which ge nerated this result tra nsmitted reference range : <=1.0. The reference r juan was not used to int erpret this result as normal/abnormal . [facility] HospitalBhvxmwzQURLFDQJXF9412-54-59 07:35:00 Test Item Value Reference Range Interpretation Comments Neutrophils # (test code = Neutrophils 6.4 1.5-8.1 #) [place] 375240-02-11 07:35:00 Test Item Value Reference Range Interpretation Comments Lymphocytes # (test code = Lymphocytes 2.0 1.0-5.5 #) [place] 375240-02-11 07:35:00 Test Item Value Reference Range Interpretation Comments Monocytes # (test code 1.1 See_Comment [Aut omated message] The = Monocytes #) system which generated this result tra nsmitted reference range : <=0.8. The reference r juan was not used to int erpret this result as normal/abnormal . [place] 375240-02-11 07:35:00 Test Item Value Reference Range Interpretation Comments Eosinophils # (test code 0.1 See_Comment [A utomated message] The = Eosinophils #) system whic h generated this result tra nsmitted reference range : <=0.5. The reference r juan was not used to int erpret this result as normal/abnormal . [facility] HospitalPnoiqieTWAYVXKFMD7449-66-04 07:35:00 Test Item Value Reference Range Interpretation Comments Microcyte (test code = 2+ *ABN*(10/17/19 Microcyte) 1:35 AM) [facility]2020-02-11 07:35:00 Test Item Value Reference Range Interpretation Comments Amylase Lvl (test code = Amylase Lvl) 267 25-115 [place] 975410-02-11 07:35:00 Test Item Value Reference Range Interpretation Comments Glucose Lvl (test code = Glucose Lvl) 129 70-99 [place] 975410-02-11 07:35:00 Test Item Value Reference Range Interpretation Comments BUN (test code = BUN) 23 7-22 [facility]2020-02-11 07:35:00 Test Item Value Reference Range Interpretation Comments Creatinine Lvl (test code = Creatinine 2.27 0.50-1.40 Lvl) [facility]2020-02-11 07:35:00 Test Item Value Reference Range Interpretation Comments Sodium Lvl (test code = Sodium Lvl) 141 135-145 [place] 975410-02-11 07:35:00 Test Item Value Reference Range Interpretation Comments Potassium Lvl (test code = Potassium 3.5 3.5-5.1 Lvl) [facility]2020-02-11 07:35:00 Test Item Value Reference Range Interpretation Comments Chloride Lvl (test code = Chloride Lvl) 108 95-109 [facility]2020-02-11 07:35:00 Test Item Value Reference Range Interpretation Comments CO2 (test code = CO2) 28 24-32 [place] 975410-02-11 07:35:00 Test Item Value Reference Range Interpretation Comments Calcium Lvl (test code = Calcium Lvl) 8.9 8.5-10.5 [place] 975410-02-11 07:35:00 Test Item Value Reference Range Interpretation Comments AGAP (test code = AGAP) 8.5 10.0-20.0 [place] 975410-02-11 07:35:00 Test Item Value Reference Range Interpretation Comments eGFR (test code = eGFR) 37 [place] [address]-02-11 07:35:00 Test Item Value Reference Range Interpretation Comments WBC (test code = WBC) 9.7 3.7-10.4 [facility] HospitalVsxcexpMXFBBQREPM8429-15-13 07:35:00 Test Item Value Reference Range Interpretation Comments RBC (test code = RBC) 5.06 4.70-6.10 [facility] HospitalMckvbonKYPGTLCSMC5651-19-83 07:35:00 Test Item Value Reference Range Interpretation Comments Hgb (test code = Hgb) 12.1 14.0-18.0 [facility] HospitalKfwwqoaFJIVUJUKEA2000-30-28 07:35:00 Test Item Value Reference Range Interpretation Comments Hct (test code = Hct) 36.9 42.0-54.0 [facility] HospitalJftxbcsRXMTGPWVEI3629-69-65 07:35:00 Test Item Value Reference Range Interpretation Comments MCV (test code = MCV) 72.9 80.0-94.0 [place] 375240-02-11 07:35:00 Test Item Value Reference Range Interpretation Comments MCH (test code = MCH) 23.8 pg 27.0-31.0 [facility] HospitalMjnvonsKDIXBKYCUF0937-91-95 07:35:00 Test Item Value Reference Range Interpretation Comments MCHC (test code = MCHC) 32.7 32.0-36.0 [facility] HospitalGjmbgxhFHHFZURAUV9566-22-01 07:35:00 Test Item Value Reference Range Interpretation Comments RDW (test code = RDW) 15.8 11.5-14.5 [facility] HospitalGyjrgiyCLWMHVEYRK2977-14-42 07:35:00 Test Item Value Reference Range Interpretation Comments Platelet (test code = Platelet) 214 133-450 [facility] HospitalYjyasxjRLLAIGXBED7170-10-16 07:35:00 Test Item Value Reference Range Interpretation Comments MPV (test code = MPV) 7.9 7.4-10.4 [place] 375240-02-11 07:35:00 Test Item Value Reference Range Interpretation Comments Segs (test code = Segs) 66.5 45.0-75.0 [place] 375240-02-11 07:35:00 Test Item Value Reference Range Interpretation Comments Lymphocytes (test code = Lymphocytes) 21.0 20.0-40.0 [place] 375240-02-11 07:35:00 Test Item Value Reference Range Interpretation Comments Monocytes (test code = Monocytes) 11.0 2.0-12.0 [facility] HospitalQllyvxdIACEJDIOBZ7464-96-99 07:35:00 Test Item Value Reference Range Interpretation Comments Eosinophils (test code = 1.1 See_Comment [A utomated message] The Eosinophils) system which ge nerated this result tra nsmitted reference range : <=4.0. The reference r juan was not used to int erpret this result as normal/abnormal . [facility] HospitalApeejdrSFILMZLELI5101-65-10 07:35:00 Test Item Value Reference Range Interpretation Comments Basophils (test code = 0.4 See_Comment [Aut omated message] The Basophils) system which ge nerated this result tra nsmitted reference range : <=1.0. The reference r juan was not used to int erpret this result as normal/abnormal . [facility] HospitalDojbsyfVINIOEEHHV2874-76-24 07:35:00 Test Item Value Reference Range Interpretation Comments Neutrophils # (test code = Neutrophils 6.4 1.5-8.1 #) [facility] HospitalMujhvpkWFSXROIFBR2146-09-45 07:35:00 Test Item Value Reference Range Interpretation Comments Lymphocytes # (test code = Lymphocytes 2.0 1.0-5.5 #) [facility] HospitalWfeypiiHQUATDBPWQ0641-48-03 07:35:00 Test Item Value Reference Range Interpretation Comments Monocytes # (test code 1.1 See_Comment [Aut omated message] The = Monocytes #) system which generated this result tra nsmitted reference range : <=0.8. The reference r juan was not used to int erpret this result as normal/abnormal . [facility] HospitalTicxzapUBQRGRFAPG5942-99-82 07:35:00 Test Item Value Reference Range Interpretation Comments Eosinophils # (test code 0.1 See_Comment [A utomated message] The = Eosinophils #) system whic h generated this result tra nsmitted reference range : <=0.5. The reference r juan was not used to int erpret this result as normal/abnormal . [facility] HospitalTrnuqzsBAVDPABTZT4446-00-88 07:35:00 Test Item Value Reference Range Interpretation Comments Microcyte (test code = 2+ *ABN*(10/17/19 Microcyte) 1:35 AM) [facility] HospitalOrebxylAIFOCIYLHC5581-93-32 01:35:00 Test Item Value Reference Range Interpretation Comments PT (test code = PT) 15.0 s 12.0-14.7 [place] 375240-02-11 01:35:00 Test Item Value Reference Range Interpretation Comments INR (test code = INR) 1.17 1 0.85-1.17 [place] 375240-02-11 01:35:00 Test Item Value Reference Range Interpretation Comments PT (test code = PT) 15.0 s 12.0-14.7 [place] 375240-02-11 01:35:00 Test Item Value Reference Range Interpretation Comments INR (test code = INR) 1.17 1 0.85-1.17 [place] 975410-02-10 20:27:00 Test Item Value Reference Range Interpretation Comments Lactic Acid Lvl (test code = Lactic 1.4 0.5-2.2 Acid Lvl) [facility]2020-02-10 20:27:00 Test Item Value Reference Range Interpretation Comments Lactic Acid Lvl (test code = Lactic 1.4 0.5-2.2 Acid Lvl) [facility]2020-02-10 16:07:00 Test Item Value Reference Range Interpretation Comments Glucose Lvl (test code = Glucose Lvl) 147 70-99 [facility]2020-02-10 16:07:00 Test Item Value Reference Range Interpretation Comments BUN (test code = BUN) 22 7-22 [facility]2020-02-10 16:07:00 Test Item Value Reference Range Interpretation Comments Creatinine Lvl (test code = Creatinine 2.24 0.50-1.40 Lvl) [facility]2020-02-10 16:07:00 Test Item Value Reference Range Interpretation Comments Sodium Lvl (test code = Sodium Lvl) 142 135-145 [facility]2020-02-10 16:07:00 Test Item Value Reference Range Interpretation Comments Potassium Lvl (test code = Potassium 3.2 3.5-5.1 Lvl) [facility]2020-02-10 16:07:00 Test Item Value Reference Range Interpretation Comments Chloride Lvl (test code = Chloride Lvl) 107 95-109 [place] 975410-02-10 16:07:00 Test Item Value Reference Range Interpretation Comments CO2 (test code = CO2) 29 24-32 [facility] [employer] [id number] 16:07:00 Test Item Value Reference Range Interpretation Comments Calcium Lvl (test code = Calcium Lvl) 9.0 8.5-10.5 [facility] [employer] [id number] 16:07:00 Test Item Value Reference Range Interpretation Comments Total Protein (test code = Total 7.4 6.4-8.4 Protein) [facility] [employer] [id number] 16:07:00 Test Item Value Reference Range Interpretation Comments Albumin Lvl (test code = Albumin Lvl) 2.6 3.5-5.0 [facility] [employer] [id number] 16:07:00 Test Item Value Reference Range Interpretation Comments ALT (test code = ALT) 37 See_Comment [Auto mated message] The system which ge nerated this result transmit herlinda reference range : <=65. The reference range was not used to interpr et this result as pascual l/abnormal. [facility] [employer] [id number] 16:07:00 Test Item Value Reference Range Interpretation Comments AST (test code = AST) 29 See_Comment [Auto mated message] The system which ge nerated this result transmit herlinda reference range : <=37. The reference range was not used to interpr et this result as pascual l/abnormal. [facility] [employer] [id number] 16:07:00 Test Item Value Reference Range Interpretation Comments Alk Phos (test code = Alk Phos) 76 39-136 [facility] [employer] [id number] 16:07:00 Test Item Value Reference Range Interpretation Comments Bili Total (test code = Bili Total) 0.4 0.2-1.3 [facility] [employer] [id number] 16:07:00 Test Item Value Reference Range Interpretation Comments AGAP (test code = AGAP) 9.2 10.0-20.0 [facility] [employer] [id number] 16:07:00 Test Item Value Reference Range Interpretation Comments B/C Ratio (test code = B/C Ratio) 10 1 6-25 [facility] [employer] [id number] 16:07:00 Test Item Value Reference Range Interpretation Comments Globulin (test code = Globulin) 4.8 2.7-4.2 [facility]2020-02-10 16:07:00 Test Item Value Reference Range Interpretation Comments A/G Ratio (test code = A/G Ratio) 0.5 1 0.7-1.6 [place] 975410-02-10 16:07:00 Test Item Value Reference Range Interpretation Comments eGFR (test code = eGFR) 38 [facility]2020-02-10 16:07:00 Test Item Value Reference Range Interpretation Comments Lipase Lvl (test code = Lipase Lvl) 2636 73393 [facility]2020-02-10 16:07:00 Test Item Value Reference Range Interpretation Comments Magnesium Lvl (test code = Magnesium 2.3 1.8-2.4 Lvl) [place] 975410-02-10 16:07:00 Test Item Value Reference Range Interpretation Comments Phosphorus (test code = Phosphorus) 2.3 2.5-4.5 [facility] HospitalWkjwhwuYMZQKOTELK3664-33-51 16:07:00 Test Item Value Reference Range Interpretation Comments WBC (test code = WBC) 9.2 3.7-10.4 [place] 375240-02-10 16:07:00 Test Item Value Reference Range Interpretation Comments RBC (test code = RBC) 5.23 4.70-6.10 [place] 375240-02-10 16:07:00 Test Item Value Reference Range Interpretation Comments Hgb (test code = Hgb) 12.2 14.0-18.0 [place] 375240-02-10 16:07:00 Test Item Value Reference Range Interpretation Comments Hct (test code = Hct) 38.0 42.0-54.0 [place] [address]-02-10 16:07:00 Test Item Value Reference Range Interpretation Comments MCV (test code = MCV) 72.6 80.0-94.0 [place] [address]-02-10 16:07:00 Test Item Value Reference Range Interpretation Comments MCH (test code = MCH) 23.4 pg 27.0-31.0 [place] 375240-02-10 16:07:00 Test Item Value Reference Range Interpretation Comments MCHC (test code = MCHC) 32.2 32.0-36.0 [place] [address]-02-10 16:07:00 Test Item Value Reference Range Interpretation Comments RDW (test code = RDW) 15.8 11.5-14.5 [facility] HospitalXcjswmzOWVVGXXMIB7047-64-53 16:07:00 Test Item Value Reference Range Interpretation Comments Platelet (test code = Platelet) 221 133-450 [facility] HospitalXeiuzinBAOZLJXCCY7454-66-13 16:07:00 Test Item Value Reference Range Interpretation Comments MPV (test code = MPV) 7.5 7.4-10.4 [facility] HospitalQrfcwnaFCTGJETRMP4520-21-68 16:07:00 Test Item Value Reference Range Interpretation Comments Segs (test code = Segs) 70.0 45.0-75.0 [facility] HospitalMpstjdgDHPYFBWCBN9997-55-94 16:07:00 Test Item Value Reference Range Interpretation Comments Lymphocytes (test code = Lymphocytes) 19.1 20.0-40.0 [facility] HospitalOwilxrnJJOWVDRLFM8835-33-49 16:07:00 Test Item Value Reference Range Interpretation Comments Monocytes (test code = Monocytes) 9.6 2.0-12.0 [facility] HospitalQxcsscnRXGAIOSBNB7574-67-55 16:07:00 Test Item Value Reference Range Interpretation Comments Eosinophils (test code = 0.9 See_Comment [A utomated message] The Eosinophils) system which ge nerated this result tra nsmitted reference range : <=4.0. The reference r juan was not used to int erpret this result as normal/abnormal . [facility] HospitalCtcyovfLBVIGVAKTJ7486-65-86 16:07:00 Test Item Value Reference Range Interpretation Comments Basophils (test code = 0.4 See_Comment [Aut omated message] The Basophils) system which ge nerated this result tra nsmitted reference range : <=1.0. The reference r juan was not used to int erpret this result as normal/abnormal . [facility] HospitalZapigraHHIJSZPHNF4736-65-76 16:07:00 Test Item Value Reference Range Interpretation Comments Neutrophils # (test code = Neutrophils 6.5 1.5-8.1 #) [facility] HospitalKawsoxcSFPGAYNWYY0960-37-70 16:07:00 Test Item Value Reference Range Interpretation Comments Lymphocytes # (test code = Lymphocytes 1.8 1.0-5.5 #) [facility] HospitalSwfgukfUEHTDBKOXK8432-27-92 16:07:00 Test Item Value Reference Range Interpretation Comments Monocytes # (test code 0.9 See_Comment [Aut omated message] The = Monocytes #) system which generated this result tra nsmitted reference range : <=0.8. The reference r juan was not used to int erpret this result as normal/abnormal . [facility]QszvlevGDJCFOUUDV5499-78-17 16:07:00 Test Item Value Reference Range Interpretation Comments Eosinophils # (test code 0.1 See_Comment [A utomated message] The = Eosinophils #) system whic h generated this result tra nsmitted reference range : <=0.5. The reference r juan was not used to int erpret this result as normal/abnormal . [facility] HospitalHnppvhxDTDJEMKGTD2770-53-10 16:07:00 Test Item Value Reference Range Interpretation Comments Microcyte (test code = 2+ *ABN*(10/16/19 Microcyte) 10:07 AM) [facility] HospitalPjoimeeJJSSTZSKCE1850-70-35 16:07:00 Test Item Value Reference Range Interpretation Comments PT (test code = PT) 14.0 s 12.0-14.7 [facility] HospitalWjpvubzGLUWZMIUVH2689-23-08 16:07:00 Test Item Value Reference Range Interpretation Comments INR (test code = INR) 1.08 1 0.85-1.17 [facility]ven[facility]NEEL7008[facility] 16:07:00 Test Item Value Reference Range Interpretation Comments Trig (test code = Trig) 57 [facility] [id number] 16:07:00 Test Item Value Reference Range Interpretation Comments Glucose Lvl (test code = Glucose Lvl) 147 70-99 [facility] [id number] 16:07:00 Test Item Value Reference Range Interpretation Comments BUN (test code = BUN) 22 7-22 [facility] [id number] 16:07:00 Test Item Value Reference Range Interpretation Comments Creatinine Lvl (test code = Creatinine 2.24 0.50-1.40 Lvl) [facility] [id number] 16:07:00 Test Item Value Reference Range Interpretation Comments Sodium Lvl (test code = Sodium Lvl) 142 135-145 [facility] [id number] 16:07:00 Test Item Value Reference Range Interpretation Comments Potassium Lvl (test code = Potassium 3.2 3.5-5.1 Lvl) [facility] [id number] 16:07:00 Test Item Value Reference Range Interpretation Comments Chloride Lvl (test code = Chloride Lvl) 107 95-109 [facility] [employer] [id number] 16:07:00 Test Item Value Reference Range Interpretation Comments CO2 (test code = CO2) 29 24-32 [facility] [employer] [id number] 16:07:00 Test Item Value Reference Range Interpretation Comments Calcium Lvl (test code = Calcium Lvl) 9.0 8.5-10.5 [facility] [employer] [id number] 16:07:00 Test Item Value Reference Range Interpretation Comments Total Protein (test code = Total 7.4 6.4-8.4 Protein) [facility] [employer] [id number] 16:07:00 Test Item Value Reference Range Interpretation Comments Albumin Lvl (test code = Albumin Lvl) 2.6 3.5-5.0 [facility] [employer] [id number] 16:07:00 Test Item Value Reference Range Interpretation Comments ALT (test code = ALT) 37 See_Comment [Auto mated message] The system which ge nerated this result transmit herlinda reference range : <=65. The reference range was not used to interpr et this result as pascual l/abnormal. [facility] [employer] [id number] 16:07:00 Test Item Value Reference Range Interpretation Comments AST (test code = AST) 29 See_Comment [Auto mated message] The system which ge nerated this result transmit herlinda reference range : <=37. The reference range was not used to interpr et this result as pascual l/abnormal. [facility] [employer] [id number] 16:07:00 Test Item Value Reference Range Interpretation Comments Alk Phos (test code = Alk Phos) 76 39-136 [facility] [employer] [id number] 16:07:00 Test Item Value Reference Range Interpretation Comments Bili Total (test code = Bili Total) 0.4 0.2-1.3 [facility] [employer] [id number] 16:07:00 Test Item Value Reference Range Interpretation Comments AGAP (test code = AGAP) 9.2 10.0-20.0 [facility] [employer] [id number] 16:07:00 Test Item Value Reference Range Interpretation Comments B/C Ratio (test code = B/C Ratio) 10 1 6-25 [facility]2020-02-10 16:07:00 Test Item Value Reference Range Interpretation Comments Globulin (test code = Globulin) 4.8 2.7-4.2 [place] 975410-02-10 16:07:00 Test Item Value Reference Range Interpretation Comments A/G Ratio (test code = A/G Ratio) 0.5 1 0.7-1.6 [facility]2020-02-10 16:07:00 Test Item Value Reference Range Interpretation Comments eGFR (test code = eGFR) 38 [facility]2020-02-10 16:07:00 Test Item Value Reference Range Interpretation Comments Lipase Lvl (test code = Lipase Lvl) 3827 46-393 [facility]2020-02-10 16:07:00 Test Item Value Reference Range Interpretation Comments Magnesium Lvl (test code = Magnesium 2.3 1.8-2.4 Lvl) [facility]2020-02-10 16:07:00 Test Item Value Reference Range Interpretation Comments Phosphorus (test code = Phosphorus) 2.3 2.5-4.5 [facility] H[id number] 16:07:00 Test Item Value Reference Range Interpretation Comments WBC (test code = WBC) 9.2 3.7-10.4 [id number] 16:07:00 Test Item Value Reference Range Interpretation Comments RBC (test code = RBC) 5.23 4.70-6.10 [facility] H[id number] 16:07:00 Test Item Value Reference Range Interpretation Comments Hgb (test code = Hgb) 12.2 14.0-18.0 [facility] H[id number] 16:07:00 Test Item Value Reference Range Interpretation Comments Hct (test code = Hct) 38.0 42.0-54.0 [place] [id number] 16:07:00 Test Item Value Reference Range Interpretation Comments MCV (test code = MCV) 72.6 80.0-94.0 [place] [id number] 16:07:00 Test Item Value Reference Range Interpretation Comments MCH (test code = MCH) 23.4 pg 27.0-31.0 [place] [id number] 16:07:00 Test Item Value Reference Range Interpretation Comments MCHC (test code = MCHC) 32.2 32.0-36.0 [facility] HospitalMohsczkCWNIQEUHLT6805-10-15 16:07:00 Test Item Value Reference Range Interpretation Comments RDW (test code = RDW) 15.8 11.5-14.5 [facility] H[id number] 16:07:00 Test Item Value Reference Range Interpretation Comments Platelet (test code = Platelet) 221 133-450 [facility] HospitalWinxnnrFLCKBKZUGT2081-10-12 16:07:00 Test Item Value Reference Range Interpretation Comments MPV (test code = MPV) 7.5 7.4-10.4 [facility] H[id number] 16:07:00 Test Item Value Reference Range Interpretation Comments Segs (test code = Segs) 70.0 45.0-75.0 [facility] H[id number] 16:07:00 Test Item Value Reference Range Interpretation Comments Lymphocytes (test code = Lymphocytes) 19.1 20.0-40.0 [facility] H[id number] 16:07:00 Test Item Value Reference Range Interpretation Comments Monocytes (test code = Monocytes) 9.6 2.0-12.0 [facility] Hospit[id number] 16:07:00 Test Item Value Reference Range Interpretation Comments Eosinophils (test code = 0.9 See_Comment [A utomated message] The Eosinophils) system which ge nerated this result tra nsmitted reference range : <=4.0. The reference r juan was not used to int erpret this result as normal/abnormal . [facility] Ho[id number] 16:07:00 Test Item Value Reference Range Interpretation Comments Basophils (test code = 0.4 See_Comment [Aut omated message] The Basophils) system which ge nerated this result tra nsmitted reference range : <=1.0. The reference r juan was not used to int erpret this result as normal/abnormal . [facility] HospitalGvplgjhIEOYRDQFHI8985-90-88 16:07:00 Test Item Value Reference Range Interpretation Comments Neutrophils # (test code = Neutrophils 6.5 1.5-8.1 #) [facility] HospitalTesoochJIQOOAPXQR1712-16-12 16:07:00 Test Item Value Reference Range Interpretation Comments Lymphocytes # (test code = Lymphocytes 1.8 1.0-5.5 #) [facility] Hos[id number] 16:07:00 Test Item Value Reference Range Interpretation Comments Monocytes # (test code 0.9 See_Comment [Aut omated message] The = Monocytes #) system which generated this result tra nsmitted reference range : <=0.8. The reference r juan was not used to int erpret this result as normal/abnormal . [facility] H[id number] 16:07:00 Test Item Value Reference Range Interpretation Comments Eosinophils # (test code 0.1 See_Comment [A utomated message] The = Eosinophils #) system whic h generated this result tra nsmitted reference range : <=0.5. The reference r juan was not used to int erpret this result as normal/abnormal . [facility] H[id number] 16:07:00 Test Item Value Reference Range Interpretation Comments Microcyte (test code = 2+ *ABN*(10/16/19 Microcyte) 10:07 AM) [facility] H[id number] 16:07:00 Test Item Value Reference Range Interpretation Comments PT (test code = PT) 14.0 s 12.0-14.7 [facility] Hospit[id number] 16:07:00 Test Item Value Reference Range Interpretation Comments INR (test code = INR) 1.08 1 0.85-1.17 [facility]Z8666[facility]18-30 16:07:00 Test Item Value Reference Range Interpretation Comments Trig (test code = Trig) [address] [facility]
[2023-02-02 17:44] LABS: Absolute Lymphocytes (CBC) 2.5 K/uL (0.7-4.9); Hematocrit 35.2 % (39.6-49.0); Lymphocytes % 30.3 % (15.3-44.8); MCV 73.9 fL (80-100); RBC Red Blood Cell Count 4.76 M/uL (4.33-5.43)
[2023-02-02 18:03] LABS: Albumin 3.2 g/dL (3.4-5.0); Bilirubin Total 0.5 mg/dL (0.2-1.0); Potassium 3.5 mEq/L (3.5-5.1)
[2023-02-02 18:05] LABS: Troponin High Sensitivity 132.4 pg/mL (<58.9)
--- NOTE | 2023-02-02 18:08 | RAD REPORT ---
EXAM DESCRIPTION: US - Abdomen Exam Limited - 02/02/2023 5:50 pm CLINICAL HISTORY: Abdominal pain. COMPARISON: None. FINDINGS: The gallbladder wall is not thickened. A gallstone is not seen. The biliary tree is normal caliber. Appears appears normal in size and echotexture. Minimal pancreatic duct IMPRESSION: Unremarkable gallbladder and pancreatic ultrasound.
[2023-02-02] MEDS ORDERED: ASPIRIN 81 MG CHEWABLE TABLET ONE (18:59)
[2023-02-02] MEDS ORDERED: ONDANSETRON 4 MG/2 ML VIAL ONE (19:00)
[2023-02-02] MEDS ORDERED: NA CHLORIDE 0.9% 500 ML ONE (19:03)
--- NOTE | 2023-02-02 20:32 | ER ---
Nurse's Notes [facility] Name: Regis Benites Age: 52 yrs Sex: Male : 1970 Arrival Date: 02/02/2023 Time: 16:58 Bed 20 Private MD: Jai Zuleta T Diagnosis: Acute kidney failure, unspecified;arrythymia Presentation: 02/02 17:03 Chief complaint: Patient states: stomach pains X 2-3 months ago, this past weekend it iw got worse , +vomiting. Coronavirus screen: At this time, the client does not indicate any symptoms associated with coronavirus-19. Onset of symptoms was November 2022. 17:04 Ebola Screen: Patient negative for fever greater than or equal to 101.5 degrees iw Fahrenheit, and additional compatible Ebola Virus Disease symptoms Patient denies exposure to infectious person. Patient denies travel to an Ebola-affected area in the 21 days before illness onset. No symptoms or risks identified at this time. Initial Sepsis Screen: Does the patient meet any 2 criteria? No. Patient's initial sepsis screen is negative. Does the patient have a suspected source of infection? No. Patient's initial sepsis screen is negative. Risk Assessment: Do you want to hurt yourself or someone else? Patient reports no desire to harm self or others. 17:04 Method Of Arrival: Ambulatory iw 17:04 Acuity: ABBE 3 iw Historical: - Allergies: 17:06 No Known Allergies; iw - Home Meds: 17:21 Diovan Oral [Active]; Metoprolol Tartrate Oral [Active]; iw - PMHx: 17:20 Hypertensive disorder; Kidney disease; iw - PSHx: 17:20 None; iw - Social history:: Smoking status: Patient denies any tobacco usage or history of. Screenin:08 [facility] ED Fall Risk Assessment (Adult) History of falling in the last 3 months, mb9 including since admission No falls in past 3 months (0 pts) Confusion or Disorientation No (0 pts) Intoxicated or Sedated No (0 pts) Impaired Gait No (0 pts) Mobility Assist Device Used No (0 pt) Altered Elimination No (0 pt) Score/Fall Risk Level 0 - 2 = Low Risk Oriented to surroundings, Maintained a safe environment, Educated pt \T\ family on fall prevention, incl call for assistance when getting out of bed. Abuse screen: Denies threats or abuse. Nutritional screening: No deficits noted. Tuberculosis screening: No symptoms or risk factors identified. Assessment: 19:07 General: Appears in no apparent distress. Pain: Complains of pain in abdomen Pain does mb9 not radiate. Pain currently is 0 out of 10 on a pain scale. Quality of pain is described as throbbing. Neuro: Moreno Agitation-Sedation Scale (RASS): 0 - Alert and Calm Level of Consciousness is awake, alert, obeys commands, Oriented to person, place, time, situation, Appropriate for age. Cardiovascular: Heart tones S1 S2 present Patient's skin is warm and dry. Respiratory: Airway is patent Respiratory effort is even, unlabored, Respiratory pattern is regular, symmetrical. GI: Abdomen is round non-distended, Bowel sounds present X 4 quads. Abd is soft and non tender X 4 quads. Reports nausea, vomiting. Derm: Skin is pink, warm \T\ dry. Musculoskeletal: Range of motion: intact in all extremities. 20:36 Reassessment: ERP notified of pts high BP. New orders at this time. mb9 Vital Signs: 17:20 BP 195 / 99; Pulse 53; Resp 16; Temp 98.8; Weight 113.85 kg; Height 5 ft. 10 in. ; Pain iw 0/10; 19:06 BP 197 / 81; Pulse 63; Resp 18; Pulse Ox 100% ; mb9 20:36 BP 197 / 103; Pulse 69; Resp 17; Pulse Ox 98% on R/A; mb9 17:20 Body Mass Index 36.01 (113.85 kg, 177.8 cm) iw 17:20 Pain Scale: Adult iw ED Course: 17:01 Patient arrived in ED. mr 17:01 Jai Zuleta MD is Private Physician. mr 17:02 Sarah Manuel FNP-C [facility]. kb 17:02 Casa Serrano MD is Attending Physician. kb 17:05 Triage completed. iw 17:20 Arm band placed on. iw 17:52 US Abdomen Limited In Process Unspecified. EDMS 19:08 Bed in low position. Call light in reach. Side rails up X 1. Client placed on mb9 continuous cardiac and pulse oximetry monitoring. NIBP monitoring applied. environmental monitoring technician on. 19:08 No provider procedures requiring assistance completed. mb9 19:30 EKG done, by ED staff, reviewed by Casa Serrano MD. jw7 20:31 Denise Marquez, RN is Primary Nurse. mb9 20:31 Mohamud Ariza is Hospitalizing Provider. bs3 20:45 Troponin High Sensitivity Sent. mb9 20:45 Urinalysis w/ reflexes Sent. mb9 02/03 08:10 Primary Nurse role handed off by Denise Marquez, LIZETH bd 12:03 Note: pt not npo. will keep npo to do this evening or in the AM. lc6 13:26 Patient admitted, IV remains in place. vg1 Administered Medications: 02/02 19:07 Drug: NS 0.9% IV 500 ml Route: IV; Rate: bolus; Site: right antecubital; mb9 19:37 Follow up: Response: No adverse reaction; IV Status: Completed infusion mb9 19:07 Drug: Ondansetron IVP 4 mg Route: IVP; Site: right antecubital; mb9 19:37 Follow up: Response: No adverse reaction mb9 19:07 Drug: Aspirin PO Chewable Tablet 162 mg Route: PO; mb9 19:37 Follow up: Response: No adverse reaction mb9 20:42 Drug: hydrALAZINE IVP 10 mg Route: IVP; Site: right antecubital; mb9 21:44 Follow up: Response: No adverse reaction mb9 Medication: 19:08 VIS not applicable for this client. mb9 Outcome: 20:32 Decision to Hospitalize by Provider. bs3 02/03 13:26 Admitted to Tele accompanied by tech, via wheelchair, room 218, with chart, Report vg1 called to Edwina STANLEY Condition: good Instructed on the need for admit. 17:59 Patient left the ED. iw Signatures: Dispatcher [employer] EDMS Sarah Manuel, KENDELL JESUSP-Ginger Quinonez Mary mr Williams, Irene, RN Zena Patel RN RN vg1 Akila Calrin jw7 Casa Serrano MD MD bs3 Denise Marquez, RN RN mb9 Rik Cobos lc6 Corrections: (The following items were deleted from the chart) 02/02 17:07 17:04 Chief complaint: Patient states: yesterday morning had a sore throat, stared iw hurting more , then he had shakes and cough and felt feverish, no appetite iw 17:04 Coronavirus screen: Client presents with at least one sign or symptom that may iw indicate coronavirus-19. 17:04 Onset of symptoms was February 01, 2023 [facility] 17:05 BP 153 / 82; Pulse 112bpm; Resp 18bpm; Spontaneous; Pulse Ox 97% RA; Temp 101.6F iw Oral; 113.4 kg; Height 5 ft. 10 in.; BMI: 35.8; 17:04 Acuity: ABBE 4 iw 17:06 Home Meds: None; [facility] 17:06 PMHx: None; [facility] 17:06 PSHx: Appendectomy; iw 23 17:20 Pulse 53bpm; Resp 16bpm; Temp 98.8F; 113.85 kg; Height 5 ft. 10 in.; BMI: 36.0; Pain 0/10, Adult; iw
--- NOTE | 2023-02-02 20:32 | EDPHYS ---
Physician Documentation [facility] Name: Regis Beintes Age: 52 yrs Sex: Male : 1970 Arrival Date: 02/02/2023 Time: 16:58 Bed 20 Private MD: Jai Zuleta T ED Physician Casa Serrano HPI: 02/02 17:11 This 52 yrs old Black Male presents to ER via Ambulatory with complaints of Abdominal bs3 Pain, Vomiting. 17:11 Patient with a history of hypertension history of pancreatitis unclear etiology as he bs3 is not a heavy drinker denies any gallstone history presents with abdominal pain for months however got worse this past weekend he had associated nausea and vomiting however he now notes that he feels a bit better he saw his doctor who referred him in today he denies any chest pain or shortness of breath he denies any urinary symptoms he denies pain radiating to his back he has had similar pain before not associate with foods. Historical: - Allergies: 17:06 No Known Allergies; iw - Home Meds: 17:21 Diovan Oral [Active]; Metoprolol Tartrate Oral [Active]; iw - PMHx: 17:20 Hypertensive disorder; Kidney disease; iw - PSHx: 17:20 None; iw - Social history:: Smoking status: Patient denies any tobacco usage or history of. ROS: 17:11 Constitutional: Negative for fever, chills bs3 17:11 All other systems are negative. Exam: 17:11 Constitutional: This is a well developed, well nourished patient who is awake, alert, bs3 and in no acute distress. Head/Face: Normocephalic, atraumatic. Eyes: Pupils equal round and reactive to light, extra-ocular motions intact. Lids and lashes normal. Chest/axilla: Normal chest wall appearance and motion. Nontender with no deformity. No lesions are appreciated. Cardiovascular: Regular rate and rhythm with a normal S1 and S2. symmetric pulses in upper extremities Respiratory: Lungs have equal breath sounds bilaterally, clear to auscultation, no respiratory distress Abdomen/GI: Mild distention however his abdomen is soft and no focal tenderness MS/ Extremity: Pulses equal, no cyanosis. Neurovascular intact. Full, normal range of motion. Neuro: Awake and alert, GCS 15, oriented to person, place, time, and situation. Cranial nerves II-XII grossly intact. Motor strength 5/5 in all extremities. Sensory grossly intact. Psych: Awake, alert, with orientation to person, place and time. Behavior, mood, and affect are within normal limits. 20:30 EKG is Mobitz type I with a rate of [address] elevations or depressions QTc is normal as bs3 interpreted by myself Vital Signs: 17:20 BP 195 / 99; Pulse 53; Resp 16; Temp 98.8; Weight 113.85 kg; Height 5 ft. 10 in. ; Pain iw 0/10; 19:06 BP 197 / 81; Pulse 63; Resp 18; Pulse Ox 100% ; mb9 20:36 BP 197 / 103; Pulse 69; Resp 17; Pulse Ox 98% on R/A; mb9 17:20 Body Mass Index 36.01 (113.85 kg, 177.8 cm) iw 17:20 Pain Scale: Adult iw MDM: 17:02 Patient medically screened. kb 17:11 Differential diagnosis: Nonspecific abd pain, gastritis, cholecystitis, pancreatitis, bs3 viral gastroenteritis, gastroenteritis. Data reviewed: vital signs, nurses notes. 20:30 ED course: Given the worsening renal function will admit for further work-up he also bs3 has an elevated troponin it is likely demand mediated or chronic in the setting of renal insufficiency he has no ischemia on his EKG he had no chest pain shortness of breath advise repeat troponin. 02/02 17:10 Order name: CBC with Diff; Complete Time: 18:03 bs3 02/02 17:10 Order name: Comprehensive Metabolic Panel; Complete Time: 18:05 bs3 02/02 17:10 Order name: Lipase; Complete Time: 18:05 bs3 02/02 17:10 Order name: Urinalysis w/ reflexes; Complete Time: 21:09 bs3 02/02 17:10 Order name: Troponin High Sensitivity; Complete Time: 18:05 bs3 02/02 20:32 Order name: Troponin High Sensitivity; Complete Time: 22:58 mb9 02/03 04:55 Order name: CBC with Automated Diff; Complete Time: 05:21 EDMS 02/03 05:38 Order name: Basic Metabolic Panel EDMS 02/03 05:38 Order name: Phosphorus EDMS 02/03 05:38 Order name: Creatine Phosphokinase EDMS 02/03 05:38 Order name: Troponin High Sensitivity EDMS 02/03 05:38 Order name: Lipid Profile EDOR 02/03 05:38 Order name: Magnesium EDOR 02/03 05:38 Order name: Thyroid Stimulating Hormone EDOR 02/03 13:04 Order name: Uric Acid EDOR 02/03 14:00 Order name: Urine Microalbumin/Creatinine EDOR 02/03 14:48 Order name: PTH Intact EDOR 02/02 17:10 Order name: US Abdomen Limited; Complete Time: 18:21 bs3 02/02 17:10 Order name: EKG - Nurse/Tech; Complete Time: 18:53 bs3 Administered Medications: 19:07 Drug: NS 0.9% IV 500 ml Route: IV; Rate: bolus; Site: right antecubital; mb9 19:37 Follow up: Response: No adverse reaction; IV Status: Completed infusion mb9 19:07 Drug: Ondansetron IVP 4 mg Route: IVP; Site: right antecubital; mb9 19:37 Follow up: Response: No adverse reaction mb9 19:07 Drug: Aspirin PO Chewable Tablet 162 mg Route: PO; mb9 19:37 Follow up: Response: No adverse reaction mb9 20:42 Drug: hydrALAZINE IVP 10 mg Route: IVP; Site: right antecubital; mb9 21:44 Follow up: Response: No adverse reaction mb9 Disposition Summary: 02/02/23 20:32 Hospitalization Ordered Hospitalization Status: Inpatient Admission bs3 Provider: Mohamud Ariza bs3 Condition: Fair bs3 Problem: new bs3 Symptoms: have improved bs3 Bed/Room Type: Standard bs3 Location: Telemetry/MedSurg (Inpatient)(02/03/23 15:43) bd Room Assignment: 404(02/03/23 15:43) bd Diagnosis - Acute kidney failure, unspecified bs3 - arrythymia bs3 Forms: - Medication Reconciliation Form bs3 - SBAR form bs3 Signatures: Dispatcher [employer] EDMS Sarah Manuel, TELEPHONE EXCHANGE OPERATOR-C TELEPHONE EXCHANGE OPERATOR-Ginger Quinonez Irene, RN RN iw Garcia, Cindy, RN RN cg Stein, Brandon, MD MD bs3 Annalisa Hampton PA-C PAEricaC sb4 Breneman, Bernadette, RN RN mb9 Corrections: (The following items were deleted from the chart) 17:20 17:06 Home Meds: None; 17: 17:06 PMHx: None; 17:06 PSHx: Appendectomy; 21:14 20:32 Telemetry/MedSurg (Inpatient) bs3 cg 21: 20:32 bs3 cg 02/03 15:43 02/02 21:14 [facility] ER HOLD cg bd 02/03 15:43 02/02 21:14 ERHOLD- cg bd
--- NOTE | 2023-02-02 20:43 | P.HP ---
Certification for Inpatient Patient admitted to: Inpatient With expected LOS: <2 Midnights Patient will require the following post-hospital care: None Practitioner: I am a practitioner with admitting privileges, knowledge of patient current condition, hospital course, and medical plan of care. Services: Services provided to patient in accordance with Admission requirements found in Title 42 Section 412.3 of the Code of Federal Regulations Patient History Date of Service: 02/02/23 Primary Care Provider: Merlyn Reason for admission: Acute Renal Failure, Elevated Troponin History of Present Illness: Mr. 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 He was seen at his PCPs office today and sent here for further evaluation. His labs today are significant for hemoglobin 11, hematocrit 35.2, chloride 117, bicarb 19, BUN 62, creatinine 6.13, GFR 10, troponin 132.4, abdominal ultrasound negative. He has also been [id number]/100s though he reports compliance with his metoprolol and Diovan. His EKG showed a Mobitz type I with a rate of [address] elevations or depressions. However, he also did have a few runs of atrial fibrillation that was not captured on EKG. Patient denies any chest pain, palpitations, shortness of breath, any prior cardiac history or work-up. We will admit patient for further management. Allergies No Known Drug Allergies Allergy (Verified 07/25/20 22:28) Unknown Home medications list reviewed: Yes Home Medications: Ascorbic Acid/Ascorbate Sodium [Vit C-Denise Hips 500 mg Chew Tb] 1 tab PO DAILY 07/25/20 Candesartan Cilexetil 32 mg PO DAILY 07/25/20 Diphenhydra/Phenyleph/Acetamin [Cold & Flu Relief Multi-Sym Lq] 30 ml PO Q6HP PRN 07/25/20 Febuxostat 40 mg PO DAILY 07/25/20 Metoprolol Tartrate 100 mg PO BID 07/25/20 Multivitamin [Multiple Vitamins] 1 each PO DAILY 07/25/20 Vit D3/Vit K2/Calc Frutoborate [Move Free Xsxfg-Rbcyvt-Q7-D3] 1 each PO DAILY 07/25/20 Zinc Sulfate [Zinc Sulfate*] 220 mg PO DAILY 07/25/20 Apixaban [Eliquis] 5 mg PO BID #60 tablet 07/26/20 Zinc Sulfate [Zinc Sulfate*] 220 mg PO DAILY #30 cap 07/26/20 dexAMETHasone [Dexamethasone] 6 mg PO BID #28 tablet 07/26/20 - Past Medical/Surgical History Diabetic: No -: Hypertension -: Chronic kidney disease -: Lymhedema right lower leg, ankle Past Surgical History: Patient denies surgical history - Family History Father -: Diabetes - Social History Smoking Status: Never smoker Alcohol use: No CD- Drugs: No Caffeine use: No Place of Residence: Home Review of Systems Gastrointestinal: Nausea, Vomiting, Abdominal Pain Physical Examination - Vital Signs Temperature: 98.8 F Blood Pressure: 197/103 Pulse: 69 Respirations: 17 Pulse Ox (%): 98 - Physical Exam General: Alert, In no apparent distress HEENT: Atraumatic, EOMI, Sclerae nonicteric Neck: Supple, 2+ carotid pulse no bruit Respiratory: Clear to auscultation bilaterally, Normal air movement Cardiovascular: Regular rate/rhythm, Normal S1 S2 Gastrointestinal: Normal bowel sounds, No tenderness Musculoskeletal: No tenderness Integumentary: No rashes Neurological: Normal speech, Normal affect - Studies Laboratory Data (last 24 hrs) 02/02/23 17:33: Sodium 144, Potassium 3.5, BUN 62 H, Creatinine 6.13 H, Glucose 116 H, Total Bilirubin 0.5, AST 16, ALT 19, Alkaline Phosphatase 66, Lipase 44 02/02/23 17:33: WBC 8.10, Hgb 11.0 L, Hct 35.2 L, Plt Count 150 L Assessment and Plan - Problems (Diagnosis) (1) Acute renal failure Current Visit: Yes Status: Acute Qualifiers: Acute renal failure type: unspecified Qualified Code(s): N17.9 - Acute kidney failure, unspecified (2) Elevated troponin Current Visit: Yes Status: Acute (3) Chronic kidney disease, stage 4 (severe) Current Visit: Yes Status: Chronic (4) Hypertension Current Visit: Yes Status: Chronic Qualifiers: Hypertension type: primary hypertension Qualified Code(s): I10 - Essential (primary) hypertension - Plan Patient is admitted for further management of acute on chronic renal failure and elevated troponin. Creatinine is elevated at 6 today. Per chart review, it was 4 in 2019. Patient states he does not see an entry level installation technician. I suspect the elevated troponin and nausea, vomiting, abdominal pain are all secondary to his worsening kidney function. Continue to trend the troponin. Consult nephrology and cardiology. Aspirin, atorvastatin, and metoprolol daily. Hold home Diovan. Monitor on telemetry. Obtain echocardiogram. Heparin for VTE prophylaxis. Full code. Discharge Plan: Home Plan to discharge in: 48 Hours - Advance Directives Does patient have a Living Will: No Does patient have a Durable POA for Healthcare: No - Code Status/Comfort Care Code Status Assessed: Yes Code Status: Full Code Physician Review: Patient Assessed, Agree with Above Assessment and Plan Critical Care: No Time Spent Managing Pts Care (In Minutes): 50
[2023-02-02] MEDS ORDERED: HYDRALAZINE HCL 20 MG/ML VIAL ONE (20:46)
[2023-02-02 20:57] LABS: Specific Gravity 1.013 (1.005-1.030); Urine Bacteria None Seen /HPF (<20); Urine Bilirubin NEGATIVE (Negative); Urine Blood 2+ (Negative); Urine Clarity Clear (Clear); Urine Color Colorless (Yellow); Urine Glucose NEGATIVE (Negative); Urine Protein 3+ (Negative); Urine Urobilinogen Normal (Normal)
[2023-02-02] MEDS ORDERED: ACETAMINOPHEN 500 MG TAB PO PRN (21:31)
[2023-02-02] MEDS ORDERED: NA CHLORIDE 0.9% 1,000 ML IV SCH (21:31)
[2023-02-02] MEDS ORDERED: ONDANSETRON 4 MG/2 ML VIAL IV PRN (21:31)
[2023-02-02] MEDS: ATORVASTATIN 40 MG TAB PO SCH (21:31)
[2023-02-02] MEDS ORDERED: NA CHLORIDE 0.9% 1,000 ML ONE (21:54)
[2023-02-02] MEDS ORDERED: ATORVASTATIN 40 MG TAB ONE (22:23)
[2023-02-02] MEDS ORDERED: cloNIDine HCL 0.1 MG TAB PO ONE (23:49)
[2023-02-03] MEDS ORDERED: cloNIDine HCL 0.1 MG TAB ONE (00:09)
[2023-02-03] MEDS ORDERED: NITROGLYCERIN 1 GM PKT TD ONE (00:28)
[2023-02-03] MEDS ORDERED: HEPARIN 5000 UNIT/ML 1 ML VIAL ONE ×3 (00:34→17:49)
[2023-02-03] MEDS: HEPARIN 5000 UNIT/ML 1 ML VIAL SQ SCH ×3 (00:38→17:00)
[2023-02-03 04:51] LABS: Absolute Lymphocytes (CBC) 2.4 K/uL (0.7-4.9); Hematocrit 31.5 % (39.6-49.0); Lymphocytes % 33.2 % (15.3-44.8); MCV 73.6 fL (80-100); MPV 9.1 fL (7.6-11.3); RBC Red Blood Cell Count 4.28 M/uL (4.33-5.43)
[2023-02-03 05:33] LABS: Magnesium 1.7 mg/dL (1.6-2.4); Phosphorus 4.6 mg/dL (2.5-4.9); Potassium 3.7 mEq/L (3.5-5.1); Thyroid Stimulating Hormone 2.12 uIU/mL (0.358-3.740)
[2023-02-03 05:38] LABS: Troponin High Sensitivity 148.8 pg/mL (<58.9)
[2023-02-03] MEDS ORDERED: POTASSIUM 25 MEQ EFFERV TAB PO ONE (06:32)
[2023-02-03] MEDS ORDERED: MAGNESIUM SULFATE 1 gm IVPB 1 GM/100 ML BAG IV ONE (06:53)
[2023-02-03] MEDS ORDERED: POTASSIUM 25 MEQ EFFERV TAB ONE (06:56)
[2023-02-03] MEDS ORDERED: ASPIRIN 81 MG CHEWABLE TABLET ONE (07:55)
[2023-02-03] MEDS: ASPIRIN EC 81 MG TAB PO SCH (08:32)
--- NOTE | 2023-02-03 11:24 | CON ---
Date of Consultation: 02/03/2023 Reason For Consultation: Acute renal failure. History Of Present Illness: Mr. Benites has a history of COVID, hypertension. He takes metoprolol a nd Diovan. He sees . He is known to have some renal insufficiency. Came in with an E KG just showed Mobitz type 1 Wenckebach block with creatinine of 6.3, troponin 132. Nephrology is bibiana strong. Echocardiogram is pending. Diovan has been held. The patient is being hydrated. He denie d any cardiac symptoms. Past Medical History: As stated above. Allergies: NONE. Review of Systems: Negative. Social History: Negative. Family History: Negative. Physical Examination: Vital Signs: Stable, afebrile, sinus rhythm. HEENT: Negative. Neck: Supple with no bruit. Chest: Clear. Cardiac: Revealed a regular rhythm and rate. S4 gallops. Abdomen: Obese. Extremities: Revealed edema to the knees, 1+. Diagnostic Data: As stated earlier. Impression And Plan: 1.Hypertension. 2.Renal failure. 3.Elevated troponin secondary to demand ischemia from renal failure. 4.Type 1 Mobitz Wenckebach block. No need for treatment in that regard. I think we need to hold hi s ARB, get an echocardiogram, follow Nephrology recommendation, see what the echo shows, and make dec isions in that regard afterward. BROOK/GRANT Voice ID: [id number] Report ID: [id number]
--- NOTE | 2023-02-03 11:39 | P.CNS ---
Date of Consult: 02/03/23 Reason for Consult: Suspected advanced CKD, accelerated HTN Requesting Physician: jena collins Primary Care Provider: Merlyn Chief Complaint: Acute Renal Failure, Elevated Troponin History of Present Illness: Pt is a 52 yo AA male with past medical history of chronic suboptimally controlled hypertension for > 10 years on treatment with a beta oliver and ARB agent, a hx of pancreatitis episode in the past, Rt LE DVT, COVID infection in 2019 and chronic kidney disease for several years but not under the care of a Identity Access Management Architect and primarily following with his PCP. Pt does not recall baseline Cr level or eGFR but labs in this EMR from 2019 showed Cr level then > 4 mg/dl. Pt presented with complaints of worsening upper abd, epigastric pain which has been present for a few months, intermittent. Described as a dull ache. He was nauseous yesterday and threw up once. He denies an overall loss of appetite or weight. He reports some abnormal taste or loss of taste but attributes that to prior COVID infection. He acknowledges BP has not been controlled but does not check it often. He has chronic swelling of Rt LE, worse at the end of the day. He denies dyspnea. Allergies No Known Drug Allergies Allergy (Verified 07/25/20 22:28) Unknown Home Medications: Ascorbic Acid/Ascorbate Sodium [Vit C-Denise Hips 500 mg Chew Tb] 1 tab PO DAILY 07/25/20 Candesartan Cilexetil 32 mg PO DAILY 07/25/20 Diphenhydra/Phenyleph/Acetamin [Cold & Flu Relief Multi-Sym Lq] 30 ml PO Q6HP PRN 07/25/20 Febuxostat 40 mg PO DAILY 07/25/20 Metoprolol Tartrate 100 mg PO BID 07/25/20 Multivitamin [Multiple Vitamins] 1 each PO DAILY 07/25/20 Vit D3/Vit K2/Calc Frutoborate [Move Free Lrkey-Nbszkb-U8-D3] 1 each PO DAILY 07/25/20 Zinc Sulfate [Zinc Sulfate*] 220 mg PO DAILY 07/25/20 Apixaban [Eliquis] 5 mg PO BID #60 tablet 07/26/20 Zinc Sulfate [Zinc Sulfate*] 220 mg PO DAILY #30 cap 07/26/20 dexAMETHasone [Dexamethasone] 6 mg PO BID #28 tablet 07/26/20 - Past Medical/Surgical History Diabetic: No -: Hypertension -: Chronic kidney disease -: Lymhedema right lower leg, ankle - Family History Father Medical History: Diabetes Mother Medical History: Cancer Notes: stomach - Social History Alcohol use: No CD- Drugs: No Caffeine use: Yes Place of Residence: Home Review of Systems General: Unremarkable Eyes: Unremarkable ENT: Unremarkable Respiratory: Unremarkable Cardiovascular: Edema Gastrointestinal: Nausea, Vomiting, Abdominal Pain Genitourinary: Other (Reduced freq of UOP at times but does not always hydrate well, darker urine at times, denies BPH) Musculoskeletal: Unremarkable Integumentary: Unremarkable Neurological: Unremarkable Lymphatics: Unremarkable Physical Examination Temp Pulse Resp BP Pulse Ox 98.2 F 50 14 153/95 H 99 02/03/23 08:00 02/03/23 08:00 02/03/23 08:00 02/03/23 08:00 02/03/23 08:00 General: Alert, In no apparent distress, Oriented x3 HEENT: Atraumatic, Normocephalic Neck: Supple Respiratory: Clear to auscultation bilaterally, Normal air movement Cardiovascular: Regular rate/rhythm, Normal S1 S2, Other (Slightly bret, Rt LE edema 1+) Gastrointestinal: Soft and benign, Non-distended, No ascites, No tenderness, No guarding Musculoskeletal: No tenderness, No warmth, Swelling Integumentary: No rashes Neurological: Normal speech, Sensation intact, Normal affect Laboratory Data (last 24 hrs) 02/02/23 17:33: Sodium 144, Potassium 3.5, BUN 62 H, Creatinine 6.13 H, Glucose 116 H, Total Bilirubin 0.5, AST 16, ALT 19, Alkaline Phosphatase 66, Lipase 44 02/02/23 17:33: WBC 8.10, Hgb 11.0 L, Hct 35.2 L, Plt Count 150 L Conclusions/Impression: A/P) 1. Suspected advanced progressive CKD 2nd to hypertensive nephrosclerosis +/- global sclerosis (seen more commonly in AA) with Cr level > 4 mg/dl back in 2019. Even if there is some mild pre-renal component on admission, no dramatic improvement in levels post hydration and pt appears to be at CKD V, pre dialysis with indications for initiation of dialysis for early uremic symptoms discussed with pt. 2. No emergent indication to dialyze today but discussed with pt that pre dialysis planning needed to be initiated. 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 Will complete work up and if pt is agreeable to home therapy/PD, will consult surgery for PD catheter placement. Recommend holding any Eliquis anticoagulation in this regard. 3. Will obtain renal imaging and duplex of renal arteries to complete w/u but given suspected chronic, advanced CKD, a renal biopsy is not indicated 4. Pt able to maintain PO intake, d/c NS IVF as Na > 145 and BP accelerated, encourage water intake. 5. Hold ARB medication until dialysis initiated. Start dihydropyridine CCB. Will defer beta blockers to primary team or Cardiology given HR < 60 at times and reports of Mobitz Type 1 block. 6. Troponin leak in the setting of renal failure and HTN, monitor. Gen surgery may require cardiac clearance for gen anesthesia 7. Phos > 4.5, total corrected Ca at LLN, start Ca based binder, check PTH 8. Anemia 2nd to CKD and likely iron deficiency -start iron supplementation, no MIKE while BP accelerated and Hb is > 10. Rodri Cao MD, JAY
[2023-02-03] MEDS ORDERED: AMLODIPINE 5 MG TAB PO SCH (12:00)
[2023-02-03] MEDS: CALCIUM ACETATE 667 MG TAB PO SCH ×2 (14:00→17:00)
[2023-02-03] MEDS ORDERED: HYDRALAZINE HCL 20 MG/ML VIAL ONE (14:21)
[2023-02-03] MEDS ORDERED: AMLODIPINE 5 MG TAB ONE (14:21)
[2023-02-03] MEDS: HYDRALAZINE HCL 20 MG/ML VIAL IV PRN ×3 (14:21→22:47)
--- NOTE | 2023-02-03 14:37 | EKG ---
Test Date: 2023-02-02 Test Time: 19:07:26 Lead C Developer: FLORES MEASUREMENT RESULTS: Intervals: Rate: 49 CT: QRSD: 112 QT: 534 QTc: 482 [place]: P: 50 CT: QRS: -30 T: 214 INTERPRETIVE STATEMENTS: Sinus rhythm Left axis deviation ST & T wave abnormality, consider inferolateral ischemia Prolonged QT Abnormal ECG No previous ECG available for comparison Electronically Signed On 02-03-23 14:36:09 CDT by Ryan Pollard
--- NOTE | 2023-02-03 16:36 | P.PN ---
Subjective Date of Service: 02/03/23 Primary Care Provider: Merlyn Chief Complaint: Acute Renal Failure, Elevated Troponin Patient denies any complain. He states his nausea has resolved. He vomited once in the ED in the morning but no more vomiting since admit. Physical Examination - Vital Signs Temperature: 98.2 F Blood Pressure: 179/87 Pulse: 55 Respirations: 14 Pulse Ox (%): 99 - Physical Exam General: Alert, In no apparent distress, Oriented x3 HEENT: Mucous membr. moist/pink Neck: Supple, JVD not distended Respiratory: Clear to auscultation bilaterally, Normal air movement Cardiovascular: No edema, Regular rate/rhythm, Normal S1 S2, No murmurs Gastrointestinal: Normal bowel sounds, Soft and benign, Non-distended Musculoskeletal: No swelling, No tenderness Integumentary: No rashes, No cyanosis Neurological: Normal speech, Normal strength at 5/5 x4 extr, Cranial nerves 3-12 intact - Studies Laboratory Data (last 24 hrs) 02/02/23 17:33: Sodium 144, Potassium 3.5, BUN 62 H, Creatinine 6.13 H, Glucose 116 H, Total Bilirubin 0.5, AST 16, ALT 19, Alkaline Phosphatase 66, Lipase 44 02/02/23 17:33: WBC 8.10, Hgb 11.0 L, Hct 35.2 L, Plt Count 150 L Assessment And Plan - Current Problems (Diagnosis) (1) Elevated troponin Current Visit: Yes Status: Acute (2) Chronic kidney disease, stage 4 (severe) Current Visit: Yes Status: Chronic (3) Hypertension Current Visit: Yes Status: Chronic Qualifiers: Hypertension type: primary hypertension Qualified Code(s): I10 - Essential (primary) hypertension - Plan Troponin mildly elevated but trended flat. Patient seen by cardiology and elevated troponin deemed secondary to demand ischemia. Echocardiogram ordered. Metoprolol is on hold due to type I Wenkebach. Nephrology seen patient and started him on amlodipine. Hydralazine as needed for BP spikes. Patient was given a dose of clonidine this morning. Nephrology recommend initiation of peritoneal dialysis pending patient's consent for catheter placement. Continue aspirin, Lipitor. Diovan is on hold. Heparin for DVT prophylaxis.
[2023-02-03] MEDS: ATORVASTATIN 40 MG TAB PO SCH (20:40)
[2023-02-03 22:39] VITALS: BMI 36.0
[2023-02-03] MEDS ORDERED: HYDRALAZINE HCL 20 MG/ML VIAL IV PRN (23:40)
[2023-02-04] MEDS: HEPARIN 5000 UNIT/ML 1 ML VIAL SQ SCH ×2 (01:30→08:15)
[2023-02-04 04:05] VITALS: O2SAT 96
[2023-02-04 05:27] LABS: Absolute Lymphocytes (CBC) 1.6 K/uL (0.7-4.9); Hematocrit 33.8 % (39.6-49.0); Lymphocytes % 19.8 % (15.3-44.8); MCV 73.5 fL (80-100)
[2023-02-04 05:34] LABS: Specific Gravity 1.011 (1.005-1.030); Urine Bacteria None Seen /HPF (<20); Urine Bilirubin NEGATIVE (Negative); Urine Blood 1+ (Negative); Urine Clarity Clear (Clear); Urine Color Colorless (Yellow); Urine Glucose NEGATIVE (Negative); Urine Mucus Slight /HPF (None Seen); Urine Protein 2+ (Negative); Urine RBC <5 /HPF (None Seen); Urine Urobilinogen Normal (Normal); Urine pH 5.5 (5.0-7.0)
[2023-02-04 06:00] LABS: Potassium 3.7 mEq/L (3.5-5.1); Uric Acid 12.2 mg/dL (3.5-7.2)
[2023-02-04 06:38] LABS: Hepatitis B Core Ab, Total Nonreactive (Nonreactive); Hepatitis B surface AG Interp. Nonreactive (Nonreactive); Hepatitis C Virus Ab Nonreactive (Nonreactive)
[2023-02-04 06:40] LABS: Hepatitis B Surface Ab - Quant < 3.10 mIU/mL (<8.0)
--- NOTE | 2023-02-04 08:11 | EKG ---
Test Date: 2023-02-02 Test Time: 18:49:08 Sign Hanger Supervisor: TAB MEASUREMENT RESULTS: Intervals: Rate: 46 [place]: QRSD: 104 QT: 532 QTc: 465 [place]: P: [place]: QRS: -24 T: -84 INTERPRETIVE STATEMENTS: type 1 mobitz block Prolonged QT Abnormal ECG No previous ECG available for comparison Electronically Signed On 02-04-23 08:10:24 CDT by Elkin Poole
[2023-02-04] MEDS: ASPIRIN EC 81 MG TAB PO SCH (08:15)
[2023-02-04] MEDS: CALCIUM ACETATE 667 MG TAB PO SCH (08:15)
[2023-02-04 08:18] VITALS: BP 169/97
[2023-02-04 08:54] VITALS: TEMP 98.9
[2023-02-04] MEDS ORDERED: AMLODIPINE 5 MG TAB PO SCH (09:00)
[2023-02-04] MEDS ORDERED: POTASSIUM CL SA 10 MEQ TAB PO ONE (09:00)
--- NOTE | 2023-02-04 09:22 | P.DS ---
Admission Date: 02/02/23 Discharge Date: 02/04/23 Primary Care Provider: Merlyn Disposition: ROUTINE DISCHARGE Discharge Condition: FAIR Reason for Admission: Acute Renal Failure, Elevated Troponin - Problems (1) Elevated troponin Status: Acute (2) Chronic kidney disease, stage 4 (severe) Status: Chronic (3) Hypertension Status: Chronic Qualifiers: Hypertension type: primary hypertension Qualified Code(s): I10 - Essential (primary) hypertension Brief History of Present Illness: Mr. Benites is a 52-year-old male with past medical history of hypertension and chronic kidney disease stage IV who presented to the emergency department with complaints of intermittent abdominal pain, nausea, and vomiting for 3 months now. He was seen at his PCPs office and sent here for further evaluation. His labs today are significant for hemoglobin 11, hematocrit 35.2, chloride 117, bicarb 19, BUN 62, creatinine 6.13, GFR 10, troponin 132.4, abdominal ultrasound negative. He was also [id number] though he reports compliance with his metoprolol and Diovan. His EKG showed a Mobitz type I with a rate of [address] elevations or depressions. However, he also did have a few runs of atrial fibrillation that was not captured on EKG. Patient denies any chest pain, palpitations, shortness of breath, any prior cardiac history or work-up. Patient admitted for further management. Hospital Course: Patient admitted to the medical floor and treated with supportive measures. He was seen and evaluated by who felt patient's symptoms are related to uremia. His symptoms improved. Nephrology recommended initiating peritoneal dialysis. Patient declined and stated he would like to wait for a little longer. He was started on amlodipine by nephrology. I called patient's pharmacy and confirmed he takes doxazosin and metoprolol for hypertension. Patient stated his blood pressure has been uncontrolled on the doxazosin and metoprolol. Amlodipine is prescribed to add to his home antihypertensives for better blood pressure control. Patient will follow-up with nephrology for further discussions regarding dialysis initiation. Vital Signs/Physical Exam: Temp Pulse Resp BP Pulse Ox 98.9 F 75 16 169/97 H 98 02/04/23 08:00 02/04/23 08:15 02/04/23 08:00 02/04/23 08:15 02/04/23 08:00 General: Alert, In no apparent distress HEENT: Mucous membr. moist/pink Neck: JVD not distended Respiratory: Clear to auscultation bilaterally, Normal air movement Cardiovascular: No edema, Regular rate/rhythm, Normal S1 S2 Gastrointestinal: Soft and benign, Non-distended Musculoskeletal: No swelling Integumentary: No rashes, No cyanosis Neurological: Normal strength at 5/5 x4 extr Laboratory Data at Discharge: WBC 8.10 thou/uL (4.3-10.9) 02/04/23 04:28 Hgb 10.8 g/dL (13.6-17.9) L 02/04/23 04:28 Hct 33.8 % (39.6-49.0) L 02/04/23 04:28 Plt Count 140 thou/uL (152-406) L 02/04/23 04:28 Sodium 145 mEq/L (136-145) 02/04/23 04:28 Potassium 3.7 mEq/L (3.5-5.1) 02/04/23 04:28 BUN 59 mg/dL (7-18) H 02/04/23 04:28 Creatinine 5.46 mg/dL (0.70-1.30) H 02/04/23 04:28 Glucose 103 mg/dL (74-106) 02/04/23 04:28 Uric Acid 12.2 mg/dL (3.5-7.2) H 02/04/23 04:28 Phosphorus 4.6 mg/dL (2.5-4.9) 02/03/23 04:23 Magnesium 1.7 mg/dL (1.6-2.4) 02/03/23 04:23 Total Bilirubin 0.5 mg/dL (0.2-1.0) 02/02/23 17:33 AST 16 U/L (15-37) 02/02/23 17:33 ALT 19 U/L (16-61) 02/02/23 17:33 Alkaline Phosphatase 66 U/L (45-117) 02/02/23 17:33 Triglycerides 89 mg/dL (<150) 02/03/23 04:23 Cholesterol 122 mg/dL (<200) 02/03/23 04:23 HDL Cholesterol 54 mg/dL (40-60) 02/03/23 04:23 Cholesterol/HDL Ratio 2.26 02/03/23 04:23 Lipase 44 U/L (13-75) 02/02/23 17:33 Home Medications: Ascorbic Acid/Ascorbate Sodium [Vit C-Denise Hips 500 mg Chew Tb] 1 tab PO DAILY 07/25/20 Metoprolol Tartrate 200 mg PO DAILY 6PM 07/25/20 Zinc Sulfate [Zinc Sulfate*] 220 mg PO DAILY #30 cap 07/26/20 Doxazosin [Cardura*] 1 tab PO BEDTIME 02/03/23 Amlodipine [Norvasc*] 5 mg PO BID #60 tab 02/04/23 Atorvastatin Calcium [Lipitor] 20 mg PO BEDTIME #30 tab 02/04/23 Calcium Acetate [Phoslo*] 667 mg PO TIDWM #90 tab 02/04/23 Febuxostat 40 mg PO DAILY #30 tab 02/04/23 New Medications: Febuxostat 40 mg PO DAILY #30 tab Atorvastatin Calcium [Lipitor] 20 mg PO BEDTIME #30 tab Amlodipine [Norvasc*] 5 mg PO BID #60 tab Calcium Acetate [Phoslo*] 667 mg PO TIDWM #90 tab Diet: Renal Activity: Ad catia Followup: Darci Lala DO [ACTIVE - CAN ADMIT] - 1 Week (Call for appointment) Rodri Cao [ACTIVE - CAN ADMIT] - 1-2 Weeks (call for appointment) Elkin Poole MD [ACTIVE - CAN ADMIT] - 1-2 Weeks (call for appointment.) Jai Zuleta MD [Primary Care Provider] - 1-2 Weeks (Call for appointment.) Time spent managing pt's care (in minutes): 33
--- NOTE | 2023-02-04 10:40 | RAD REPORT ---
EXAM DESCRIPTION: US - Abdomen Pelvis Scan US - 02/04/2023 2:06 am CLINICAL HISTORY: High blood pressure Progressive CKD, uncontrolled HTN COMPARISON: Abdomen Exam Limited dated 02/02/2023 FINDINGS: Echogenic renal cortices bilaterally. No hydronephrosis. The right kidney measures 9.1 cm. The left kidney measures 9.2 cm. Bilateral simple and minimally complicated renal cysts are present which are benign. The largest cyst on the left measures 2.9 cm. Aortic velocity: 93 cm/second Right proximal renal artery: 79 cm/second Right mid renal artery: 41 cm/second Right distal renal artery: 35 cm/second Right renal arcuate artery resistive index: 0.6 Right renal artery / aorta ratio: 0.85 Left proximal renal artery: 82 cm/second Left mid renal artery: 57 cm/second Left distal renal artery: 60 cm/second Left renal arcuate artery resistive index: 0.8 Left renal artery/aorta ratio: 0.9 Normal waveforms demonstrated within the bilateral renal arteries. IMPRESSION: No evidence of hemodynamically significant stenosis within the bilateral renal arteries. Bilateral renal cysts. Increased echogenicity of the renal cortices consistent with medical renal disease.
--- NOTE | 2023-02-04 12:32 | ECHO ---
HEIGHT: 5 ft 10 in WEIGHT: 248 lb 6.4 oz DATE OF STUDY: 02/04/[address]: Annalisa Hampton 2-DIMENSIONAL: YES M.MODE: YES DOPPLER: YES COLOR FLOW: YES TDS: PORTABLE: YES DEFINITY: BUBBLE STUDY: DIAGNOSIS: ELEVATED TROPONIN CARDIAC HISTORY: CATHERIZATION: NO SURGERY: NO PROSTHETIC VALVE: NO PACEMAKER: NO MEASUREMENTS (cm) DIASTOLIC (NORMALS) SYSTOLIC (NORMALS) IVSd 1.6 (0.6-1.2) LA Diam 3.7 (1.9-4.0) LVEF 53% LVIDd 4.9 (3.5-5.7) LVIDs 3.6 (2.0-3.5) %FS 27% LVPWd 2.0 (0.6-1.2) Ao Diam 3.4 (2.0-3.7) 2 DIMENSIONAL ASSESSMENT: RIGHT ATRIUM: NORMAL LEFT ATRIUM: NORMAL RIGHT VENTRICLE: NORMAL LEFT VENTRICLE: LEFT VENTRICULAR HYPERTROPHY TRICUSPID VALVE: NORMAL MITRAL VALVE: NORMAL PULMONIC VALVE: NORMAL AORTIC VALVE: NORMAL PERICARDIAL EFFUSION: NONE AORTIC ROOT: NORMAL LEFT VENTRICULAR WALL MOTION: NORMAL EJECTION FRACTION. DECREASED LEFT VENTRICULAR COMPLIANCE. DOPPLER/COLOR FLOW: MILD AORTIC REGURGITATION, MITRAL REGURGITATION, TRICUSPID REGURGITATION. COMMENTS: 1. NORMAL EJECTION FRACTION 2. CONCENTRIC LEFT VENTRICULAR HYPERTROPHY, SEVERE 3. MILD AORTIC REGURGITATION, MITRAL REGURGIATION, TRICUSPID REGURGITATION. NORMAL RIGHT VENTRICULAR SYSTOLIC PRESSURE. 4. DECREASED LEFT VENTRICULAR COMPLIANCE TECHNOLOGIST: PHAM SYKES
--- NOTE | 2023-02-04 21:53 | P.PN ---
Date of Service: 02/04/23 Vital Signs Temp Pulse Resp BP Pulse Ox 98.9 F 75 16 169/97 H 98 02/04/23 08:00 02/04/23 08:15 02/04/23 08:00 02/04/23 08:15 02/04/23 08:00 Assessment/ Plan: Nephrology No dyspnea No chest pain No acute events overnight Vitals, medications, blood work and imaging reviewed in the chart. NAD. NCAT. MMM. Neck supple. Normal respiratory effort. RRR. Abd ND. No C/C. LE Edema trace. No rash. AAO. Normal speech. CKD V in the setting of uncontrolled HTN Proteinuria -No NSAIDs -Counseled regarding possible dialysis in the near future Metabolic Acidosis -Recommend sodium bicarb Hyperuricemia -Consider allopurinol HTN with CKD -Continue Amlodipine Anemia in chronic illness -Monitor H&H CKD MBD PTH 875 -Continue Phoslo
[2023-02-08 16:08] LABS: Albumin, (SPE) 3.1 g/dL (3.8-4.8); Alpha-1-Globulins 0.3 g/dL (0.2-0.3); Alpha-2-Globulins 0.6 g/dL (0.5-0.9); INTERPRETATION REPORT
== END 2023-02-04 10:48 | disposition home or self-care (01) | DRG 683 ==
LOC: ER 16:58 → ERHOLD 20:36 → 4TH 02-03 17:25
PROVIDERS: ADMIT Internal Medicine; ATTEND Internal Medicine
DX: N17.9 Acute kidney failure, unspecified (principal); E87.20 Acidosis, unspecified; I24.8 Other forms of acute ischemic heart disease; N18.4 Chronic kidney disease, stage 4 (severe); I12.9 Hypertensive chronic kidney disease with stage 1 through stage 4 chronic kidney disease, or unspecified chronic kidney disease; D63.1 Anemia in chronic kidney disease; D50.9 Iron deficiency anemia, unspecified; I48.91 Unspecified atrial fibrillation; I44.1 Atrioventricular block, second degree; Z79.01 Long term (current) use of anticoagulants; Z86.16 Personal history of COVID-19; Z79.899 Other long term (current) drug therapy
CPT/HCPCS: 36415; 76705; 80048; 80053; 80061; 81001; 82043; 82550; 82570; 83690; 83735; 83970; 84100; 84165; 84443; 84484; 84550; 85025; 86038; 86160; 86335; 86704; 86706; 86803; 87340; 87389; 93005; 93306; 93975; 96374; 96375; 99285; J0360; J1644; J2405; J3475; J7030; J7040